=== PATIENT | female | born 1975 | race African-American/Black ===

== ENCOUNTER 2023-01-06 14:17 | Emergency (ER) | payer OTHER ==
[~2023-01-06] VITALS: Ht 149.9 cm; Wt 123.0 kg
[2023-01-06] MEDS ORDERED: prednisoLONE ACETATE 1% OPTH SUSP 5ML RIGHTEYE ONE (15:00)
[2023-01-06 17:37] LABS: Basophils # (auto) 0 10 ^3/uL (0-0.2); Basophils % (auto) 0.7 % (0.0-2.0); Eosinophils # (auto) 0.1 10 ^3/uL (0-0.8); Hematocrit 38.4 % (36.0-46.0); Hemoglobin 12.7 g/dL (12.2-16.2); Lymphocytes # (auto) 2.6 10 ^3/uL (0.4-5.4); Mean Corpuscular Hemoglobin 29.9 pg (28.0-32.0); Mean Corpuscular Volume 90.7 fL (80.0-100.0); Monocytes # (auto) 0.4 10 ^3/uL (0-1.3); Monocytes % (auto) 6.3 % (0.0-12.0); Neutrophils # (auto) 3.6 10 ^3/uL (1.6-8.6); Nucleated Red Blood Cells % 0.1 %; Red Blood Cells 4.24 10^6/uL (4.0-5.20); White Blood Cell 6.8 10^3/uL (4.4-10.8)
[2023-01-06 19:44] VITALS: BP 140/86
[2023-01-06 20:04] LABS: Albumin 3.3 g/dL (3.4-5.0); Calcium 8.8 mg/dL (8.5-10.1); Potassium 4.3 mmol/L (3.5-5.1)
[2023-01-06 20:07] LABS: BUN/Creatinine Ratio 13.3; Bilirubin, Total 0.2 mg/dL (0.2-1.0); Total Protein 7.5 g/dL (6.4-8.2)
== END 2023-01-06 20:31 | disposition short-term general hospital (02) ==
LOC: ER 14:17
DX: H16.001 Unspecified corneal ulcer, right eye (principal); H53.8 Other visual disturbances; I10 Essential (primary) hypertension; J45.909 Unspecified asthma, uncomplicated
CPT/HCPCS: 36415; 80053; 85025; 85652

== ENCOUNTER 2024-07-14 17:45 | Emergency (ER) | payer OTHER ==
[~2024-07-14] VITALS: Ht 149.9 cm; Wt 110.0 kg
[2024-07-14] MEDS ORDERED: ERY05OO OP (20:45)
[2024-07-14] MEDS: ERYTHROMY OPTH OINT 5mg/gm 1gm or 3.5gm tube OP ONE (21:19)
[2024-07-14] MEDS: TETRACAINE HCL 0.5% OPTH(EYE) SOLN 4ML EACHEYE ONE (21:20)
[2024-07-14] MEDS: FLUORESCEIN SOD OPTH TEST STRIP EACHEYE ONE (21:20)
[2024-07-14 21:26] VITALS: BP 145/91; PULSE 76; RESP 14; TEMP 98.1; O2SAT 93
== END 2024-07-14 21:20 | disposition home or self-care (01) ==
LOC: ER 17:45
DX: S05.02XA Injury of conjunctiva and corneal abrasion without foreign body, left eye, initial encounter (principal); S05.01XA Injury of conjunctiva and corneal abrasion without foreign body, right eye, initial encounter; I10 Essential (primary) hypertension; J45.909 Unspecified asthma, uncomplicated; X58.XXXA Exposure to other specified factors, initial encounter; Y93.89 Activity, other specified; Y92.89 Other specified places as the place of occurrence of the external cause; Y99.8 Other external cause status

== ENCOUNTER 2024-10-10 07:29 | Inpatient (IN) | payer OTHER ==
[~2024-10-10] VITALS: Ht 149.9 cm; Wt 56.4 kg
[~2024-10-10 07:29] MED LIST: ERY05OO OP
[2024-10-10 07:45] VITALS: PULSE 80; RESP 18; O2SAT 98
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
[2024-10-10] MEDS: SODIUM CHLORIDE 0.9% 1,000 ML IV ONE (08:00)
[2024-10-10] MEDS: ONDANSETRON HCL 4 MG/2 ML VIAL IV ONE (08:25)
[2024-10-10] MEDS: PANTOPRAZOLE 40 MG/10 ML VIAL INJ IV ONE (08:25)
[2024-10-10] MEDS: MORPHINE SULFATE 4 MG/ML SYR/VIAL IV ONE (08:26)
[2024-10-10 08:34] LABS: Basophils # (auto) 0 10 ^3/uL (0-0.2); Basophils % (auto) 0.4 % (0.0-2.0); Eosinophils # (auto) 0.2 10 ^3/uL (0-0.8); Eosinophils % (auto) 2.2 % (0.0-7.0); Hematocrit 35.6 % (36.0-46.0); Hemoglobin 11.4 g/dL (12.2-16.2); Lymphocytes % (auto) 26.8 % (10.0-50.0); Mean Corpuscular Hemoglobin 28.5 pg (28.0-32.0); Mean Corpuscular Volume 89.2 fL (80.0-100.0); Monocytes # (auto) 0.4 10 ^3/uL (0-1.3); Monocytes % (auto) 5.8 % (0.0-12.0); Neutrophils # (auto) 4.8 10 ^3/uL (1.6-8.6); Neutrophils % (auto) 64.8 % (37.0-80.0); Nucleated Red Blood Cells % 0.1 %; Platelet Count (auto) 200 10^3/uL (140-450); Red Blood Cells 3.99 10^6/uL (4.0-5.20); Red Cell Distribution Width 15.3 % (11.8-14.3); White Blood Cell 7.4 10^3/uL (4.4-10.8)
[2024-10-10 08:51] LABS: Albumin 3.9 g/dL (3.2-4.8); Alkaline Phosphatase 81 U/L (46-116); Anion Gap 10 (5-15); Aspartate Aminotransferase 34 U/L (13-40); BUN/Creatinine Ratio 9.5 (10.0-20.0); Bilirubin, Total 0.3 mg/dL (0.2-1.0); Calcium 9.5 mg/dL (8.7-10.4); Carbon Dioxide 25 mmol/L (20-31); Chloride 106 mmol/L (98-107); Potassium 3.6 mmol/L (3.5-5.1); Sodium 141 mmol/L (136-145); Total Protein 7.6 g/dL (5.7-8.2)
[2024-10-10 09:04] LABS: Alanine Aminotransferase 75 U/L (7-40); Blood Urea Nitrogen 9 mg/dL (9-23); Glucose 152 mg/dL (74-106)
[2024-10-10 09:15] LABS: Lipase 35 U/L (12-53)
[2024-10-10] MEDS: IOHEXOL 300 MG/ML 100ML BOTTLE IJ ONE (13:04)
--- NOTE | 2024-10-10 14:19 | DVH ---
Exam: CT CT AB PEL WITH IV CON ONLY History: abdominal pain ans nausea Comparison Study: None available at time of dictation. Contrast: Type of contrast: Omnipaque 3 Contrast injected: 100 mL Contrast wasted: 0 TECHNIQUE: A digital manager line image was obtained. During the uneventful, intravenous administration of c ontrast material, multislice data acquisition was obtained through the abdomen and pelvis. The data s et was subsequently reconstructed into axial images. Images were reviewed on a work station using a c ombination of axial and multiplanar using a variety of window levels and settings. Radiation Dose Information: CT Dose: CTDI volume is 25.69 mGy. Dose-length product is 1258.45 mGy*cm FINDINGS: Lung Bases: No acute or significant lung base finding. Normal heart size. No pleural or pericardial effusion. Liver: The liver is normal in size. No focal lesions. Normal hepatic vascular enhancement. Gallbladder and Biliary Tree: Calcified gallstone Spleen: Unremarkable Pancreas: The pancreas is normal in appearance without focal lesions or abnormal enhancement. Adrenal Glands: Unremarkable Kidneys: Kidneys demonstrate normal symmetric enhancement without focal lesions, calculi or hydroneph rosis. Bladder: Unremarkable Bowel: The stomach is grossly normal in appearance. Small bowel and colon are normal in caliber and d istribution. Mucosal thickening of the colon suggesting colitis correlate with clinical thinning The appendix is not visualized; however, no secondary findings of acute appendicitis identified. Ascites: Absent Lymphadenopathy: No mesenteric, retroperitoneal or periportal lymphadenopathy. Abdominal Wall and Mesentery: Unremarkable. Vasculature: The visualized abdominal aorta is normal in size and caliber. Abdominal and pelvic vess els demonstrate normal enhancement. Pelvic Organs: Unremarkable Musculoskeletal: No aggressive focal bony lesions, acute fractures or dislocation. Soft tissues: Unremarkable. IMPRESSION: 1. Calcified gallstone 2. Mucosal thickening throughout the colon suggesting colitis. Correlate with patient's symptomatolog y and clinical setting. 3. All CT scans at this medical facility are performed using dose modulation techniques as appropriate to a performed exam including the following: Automated exposure control was utilized; adjustment of t he MA and/or KV according to patient size; and use of iterative reconstruction technique.
[2024-10-10] MEDS ORDERED: MAALOX PLUS or MAALOX 30 ML PO PRN (14:45)
[2024-10-10] MEDS ORDERED: MORPHINE SULFATE INJ 2 MG/ml SYRG IV PRN (14:45)
[2024-10-10] MEDS ORDERED: DOCUSATE SOD 100 MG CAP PO PRN (14:45)
[2024-10-10] MEDS ORDERED: DEXTROSE (50%) 50ML SYRG IV PRN (14:45)
[2024-10-10] MEDS ORDERED: ONDANSETRON HCL 4 MG/2 ML VIAL IV PRN (14:45)
[2024-10-10] MEDS ORDERED: ACETAMINOPHEN 325 MG TAB PO PRN (14:45)
[2024-10-10] MEDS ORDERED: TEMAZEPAM 15 MG CAP PO PRN (14:45)
[2024-10-10] MEDS ORDERED: LORazepam 0.5 MG TAB PO PRN (14:45)
[2024-10-10] MEDS ORDERED: HYDROcodone-ACET 5/325MG TAB PO PRN (14:45)
--- NOTE | 2024-10-10 14:58 | DVHHP2 ---
History of Present Illness Reason for Visit: abdominal pain n/v History of Present Illness 49-year-old morbidly obese patient with a past medical history of asthma hypertension comes to the ED with complaints of nausea and vomiting patient states that there was severe nausea and vomiting and dizziness to the point where the patient almost passed out patient states no history of being known to be at this point in time was evaluated in the ED and do the intractable nausea and vomiting patient was recommended for ED evaluation and further management Cardiovascular: HTN Review of Systems Constitutional: Yes: Weakness; No: Fever, Chills, Sweats, Malaise, Other Eyes: No: Pain, Vision change, Conjunctivae inflammation, Eyelid inflammation, Other, Redness ENT: No: Ear pain, Ear discharge, Nose pain, Nose discharge, Nose congestion, Mouth pain, Mouth swelling, Throat pain, Throat swelling, Other Respiratory: No: Cough, Dry, Shortness of breath, SOB with excertion, Wheezing, Hemoptysis, Pleuritic Pain, Sputum, Wheezing, Other Cardiovascular: No: Chest Pain, Palpitations, Orthopnea, Paroxysmal Noc. Dyspnea, Edema, Lt Headedness, Other Gastrointestinal: Nausea, Vomiting, Abdominal Pain; No: Diarrhea, Constipation, Melena, Hematochezia, Other Genitourinary: No Dysuria, No Frequency, No Incontinence, No Hematuria, No Retention, No Other Musculoskeletal: No: other, neck pain, shoulder pain, arm pain, back pain, hand pain, leg pain, foot pain Skin: No: Rash, Lesions, Jaundice, Bruising, Other Neurological: No: Weakness, Numbness, Incoordination, Change in speech, Confusion, Seizures, Other Allergies: Coded Allergies: NO KNOWN ALLERGIES (Unverified , 01/06/23) Exam Vital Signs Vital Signs Date Time Temp Pulse Resp B/P (MAP) Pulse Ox O2 Delivery O2 Flow Rate FiO2 10/10/24 14:00 86 16 132/66 (88) 94 10/10/24 07:45 Room Air* 0 21 10/10/24 07:45 98.2 98.2 General Appearance: Alert, Oriented X3 HEENT: Atraumatic, PERRLA Respiratory: Clear to auscultation, Normal air movement Cardiovascular: Regular rate, Normal S1, Normal S2 Abdominal: Normal bowel sounds Extremities: No clubbing, No cyanosis Skin: No rashes, No breakdown Neuro: Normal gait, Normal speech Psych/Mental Status: Mood NL Labs/Xrays Labs Test 10/10/24 08:01 Range/Units White Blood Count 7.4 4.4-10.8 10^3/uL Red Blood Count 3.99 L 4.0-5.20 10^6/uL Hemoglobin 11.4 L 12.2-16.2 g/dL Hematocrit 35.6 L 36.0-46.0 % Mean Corpuscular Volume 89.2 80.0-100.0 fL Mean Corpuscular Hemoglobin 28.5 28.0-32.0 pg Mean Corpuscular Hemoglobin Concent 32.0 32.0-36.0 g/dL Red Cell Distribution Width 15.3 H 11.8-14.3 % Platelet Count 200 140-450 10^3/uL Mean Platelet Volume 9.3 6.9-10.8 fL Neutrophils (%) (Auto) 64.8 37.0-80.0 % Lymphocytes (%) (Auto) 26.8 10.0-50.0 % Monocytes (%) (Auto) 5.8 0.0-12.0 % Eosinophils (%) (Auto) 2.2 0.0-7.0 % Basophils (%) (Auto) 0.4 0.0-2.0 % Neutrophils # (Auto) 4.8 1.6-8.6 10 ^3/uL Lymphocytes # (Auto) 2.0 0.4-5.4 10 ^3/uL Monocytes # (Auto) 0.4 0-1.3 10 ^3/uL Eosinophils # (Auto) 0.2 0-0.8 10 ^3/uL Basophils # (Auto) 0 0-0.2 10 ^3/uL Nucleated Red Blood Cells 0.1 % Sodium Level 141 136-145 mmol/L Potassium Level 3.6 3.5-5.1 mmol/L Chloride Level 106 98-107 mmol/L Carbon Dioxide Level 25 20-31 mmol/L Anion Gap 10 5-15 Blood Urea Nitrogen 9 9-23 mg/dL Creatinine 0.95 0.550-1.02 mg/dL Glomerular Filtration Rate Calc 74 >90 mL/min BUN/Creatinine Ratio 9.5 L 10.0-20.0 Serum Glucose 152 H 74-106 mg/dL Calcium Level 9.5 8.7-10.4 mg/dL Total Bilirubin 0.3 0.2-1.0 mg/dL Aspartate Amino Transferase (AST) 34 13-40 U/L Alanine Aminotransferase (ALT) 75 H 7-40 U/L Alkaline Phosphatase 81 46-116 U/L Total Protein 7.6 5.7-8.2 g/dL Albumin 3.9 3.2-4.8 g/dL Lipase 35 12-53 U/L Assessment/Plan Assessment/Plan Admit to [facility] Abdominal pain with intractable nausea vomiting suspected colitis Patient was found to have right upper quadrant calcified gallstone in the gallbladder Patient was also shown to have signs of colitis IV hydration IV antibiotics Possible need for surgical evaluation Chronic history of hypertension history of asthma P.r.n. medications for management of blood pressures P.r.n. medications for the management of asthma Patient morbidly obese BMI greater than 66 Plan discussed with: Patient My Orders Orders - FRANCISCO J ESPINOZA MD Procedure Category Date Status Time Metronidazole Ivpb PHA 10/10/24 Transmitted Flagyl 14:45 Pantoprazole PHA 10/11/24 Transmitted (Protonix) 10:00 Glucose Blood [facility] 10/10/24 Transmitted (Accu-Chek Comfort 16:00 Moderate Insulin Ss PHA 10/10/24 Transmitted 16:00 Dextrose 50% Syringe [facility] 10/10/24 Transmitted 14:45 Admit ADMIT 10/10/24 Transmitted 14:40 Code Status CODE 10/10/24 Transmitted 14:40 Vital Signs [facility] 10/10/24 Transmitted 14:40 Review Orders With [facility] 10/10/24 Transmitted Adm. 14:40 Consistent DIET 10/10/24 Transmitted Carb(Ccho)Diabetes Dinner Sodium Chloride 0.9% PHA 10/10/24 Transmitted 14:45 Lorazepam Tablet [facility] 10/10/24 Transmitted (Ativan Tablet) 14:45 Alum & Mag PHA 10/10/24 Transmitted Hydrox-Simethicone 14:45 Docusate Sodium PHA 10/10/24 Transmitted Capsule (Colace 14:45 Acetaminophen Tablet PHA 10/10/24 Transmitted (Tylenol Tablet) 14:45 Temazepam (Restoril) PHA 10/10/24 Transmitted 14:45 Notify Of Changes [facility] 10/10/24 Transmitted From Base 14:40 Advance Directive [facility] 10/10/24 Transmitted 14:40 Basic Metabolic Panel LAB 10/11/24 Verified 04:00 Complete Blood Count LAB 10/11/24 Verified 04:00 Patient Condition ORDERS 10/10/24 Transmitted 14:40 Allergies XOCHITL 10/10/24 Transmitted 14:40 Hydrocodone-Acet PHA 10/10/24 Transmitted 5/325mg Tab ([place] 14:45 Ondansetron Hcl PHA 10/10/24 Transmitted (Zofran) 14:45 Morphine 2mg Iv Q4hprn PHA 10/10/24 Transmitted 14:45 Notify Md Of Changes XOCHITL 10/10/24 Transmitted From Base 14:40 Oxygen By Nasal RT 10/10/24 Transmitted Cannula 14:40 Problem List: (1) Morbid obesity with BMI of 60.0-69.9, adult (2) Colitis (3) Biliary colic (4) Intractable nausea and vomiting Date of Service: Oct 10, 2024 Billing Provider: FRANCISCO J ESPINOZA MD Common Visit Codes: 63163-[id number] INP/OBS CARE (HIGH) FRANCISCO J ESPINOZA MD Oct 10, 2024 14:58
[2024-10-10] MEDS: SODIUM CHLORIDE 0.9% 1,000 ML IV SCH (15:07)
[2024-10-10] MEDS: ACCU-CHEK COMFORT CURVE STRIP VI SCH (15:23)
[2024-10-10] MEDS: metroNIDAZOLE 500MG/100ML 100 ML IV SCH (15:26)
[2024-10-10] MEDS: InsuLIN REG 1unit/0.01ml Soln (100units/ml) SC SCH (15:37)
[2024-10-10 20:00] VITALS: PULSE 98; RESP 17; O2SAT 99
[2024-10-11 00:26] LABS: Urine Bacteria None Seen /hpf (None Seen)
[2024-10-11 00:41] LABS: Urine Blood Negative /uL (Negative); Urine Clarity Clear (Clear); Urine Color Light-Yellow (Yellow); Urine Protein, UAD Negative (Negative); Urine Specific Gravity 1.042 (1.001-1.035); Urine Urobilinogen Normal (Negative); Urine WBC 2 /hpf (0 - 5); Urine pH 6.5 (5.0-9.0)
[2024-10-11 06:41] LABS: Basophils # (auto) 0 10 ^3/uL (0-0.2); Basophils % (auto) 0.4 % (0.0-2.0); Eosinophils # (auto) 0.1 10 ^3/uL (0-0.8); Hematocrit 33.3 % (36.0-46.0); Hemoglobin 10.8 g/dL (12.2-16.2); Lymphocytes # (auto) 2.4 10 ^3/uL (0.4-5.4); Lymphocytes % (auto) 51.9 % (10.0-50.0); Mean Corpuscular Hemoglobin 28.5 pg (28.0-32.0); Mean Corpuscular Hgb Conc. 32.3 g/dL (32.0-36.0); Mean Corpuscular Volume 88.2 fL (80.0-100.0); Monocytes # (auto) 0.3 10 ^3/uL (0-1.3); Monocytes % (auto) 6.6 % (0.0-12.0); Neutrophils # (auto) 1.8 10 ^3/uL (1.6-8.6); Neutrophils % (auto) 38.1 % (37.0-80.0); Nucleated Red Blood Cells % 0.2 %; Platelet Count (auto) 174 10^3/uL (140-450); Red Blood Cells 3.78 10^6/uL (4.0-5.20); Red Cell Distribution Width 15.5 % (11.8-14.3); White Blood Cell 4.7 10^3/uL (4.4-10.8)
[2024-10-11 06:48] LABS: Sodium 141 mmol/L (136-145)
[2024-10-11 06:49] LABS: Anion Gap 8 (5-15); Carbon Dioxide 25 mmol/L (20-31)
[2024-10-11 06:50] LABS: Calcium 9.1 mg/dL (8.7-10.4)
[2024-10-11 06:55] LABS: BUN/Creatinine Ratio 11.6 (10.0-20.0); Blood Urea Nitrogen 10 mg/dL (9-23); Chloride 108 mmol/L (98-107); Glucose 119 mg/dL (74-106); Potassium 3.5 mmol/L (3.5-5.1)
[2024-10-11 07:32] VITALS: PULSE 87; RESP 17; O2SAT 97
[2024-10-11] MEDS: PANTOPRAZOLE 40 MG/10 ML VIAL INJ IV SCH (10:12)
--- NOTE | 2024-10-11 13:22 | DVHPN2 ---
Reviewed: Care Plan, H&P, Labs, Medications, Previous Orders, Radiology Changes from previous H/P or p: No Changes Eyes: No Pain, No Vision change, No Conjunctivae inflammation, No Eyelid inflammation, No Other, No Redness ENT: No Ear pain, No Ear discharge, No Nose pain, No Nose discharge, No Nose congestion, No Mouth pain, No Mouth swelling, No Throat pain, No Throat swelling, No Other Cardiovascular: No Chest Pain, No Palpitations, No Orthopnea, No Paroxysmal Noc. Dyspnea, No Edema, No Lt Headedness, No Other Respiratory: No Cough, No Dry, No Shortness of breath, No SOB with excertion, No Wheezing, No Hemoptysis, No Pleuritic Pain, No Sputum, No Other Gastrointestinal: Nausea, Vomiting, Abdominal Pain; No Diarrhea, No Constipation, No Melena, No Hematochezia, No Other Genitourinary: No Dysuria, No Frequency, No Incontinence, No Hematuria, No Retention, No Other Musculoskeletal: No other, No neck pain, No shoulder pain, No arm pain, No back pain, No hand pain, No leg pain, No foot pain Skin: No Rash, No Lesions, No Jaundice, No Bruising, No Other Objective Vitals Vital Signs Date Time Temp Pulse Resp B/P (MAP) Pulse Ox O2 Delivery O2 Flow Rate FiO2 10/11/24 11:30 86 10/11/24 11:00 22 148/80 (102) 97 10/11/24 07:32 98.6 98.6 10/11/24 07:32 Room Air* 0 21 Medications Current Medications Medications Dose Ordered Sig/Bob Route Start Time Stop Time Status Last Admin Dose Admin Metronidazole 100 ml @ 100 mls/hr Q6HR IV 10/10/24 14:45 10/11/24 12:30 100 MLS/HR Pantoprazole Sodium 40 mg DAILY IV 10/11/24 10:00 10/11/24 10:12 40 MG Diagnostic Test (Pha) 1 strip IQ4HR 10/10/24 16:00 10/11/24 12:27 1 STRIP Insulin Human Regular IQ4HR SC 10/10/24 16:00 Dextrose 50 ml UD PRN IV 10/10/24 14:45 Sodium Chloride 1,000 ml @ 60 mls/hr [id number] IV 10/10/24 14:45 10/11/24 05:52 60 MLS/HR Lorazepam 0.5 mg Q6HP PRN PO 10/10/24 14:45 Al Hydrox/Mg Hydrox/Simethicone 30 ml Q6HP PRN PO 10/10/24 14:45 Docusate Sodium 100 mg BIDPRN PRN PO 10/10/24 14:45 Acetaminophen 650 mg Q6HP PRN PO 10/10/24 14:45 Temazepam 15 mg QHSP PRN PO 10/10/24 14:45 Acetaminophen/ Hydrocodone Bitart 1 tab Q4HP PRN PO 10/10/24 14:45 Ondansetron HCl 4 mg Q4HP PRN IV 10/10/24 14:45 Morphine Sulfate 2 mg Q4HPRN PRN IV 10/10/24 14:45 Laboratory Results Laboratory Tests 10/11/24 06:15 Chemistry Test 10/11/24 06:15 Calcium Level 9.1 mg/dL (8.7-10.4) Urinalysis Test 10/11/24 00:12 Urine Color Light-yellow (Yellow) Urine Clarity Clear (Clear) Urine pH 6.5 (5.0-9.0) Urine Specific [place] 1.042 (1.001-1.035) Urine Protein Negative (Negative) Urine Ketones Negative (Negative) Urine Blood Negative /uL (Negative) Urine Nitrite Negative (Negative) Urine Bilirubin Negative (Negative) Urine Urobilinogen Normal mg/dL (Negative) Urine Leukocyte Esterase Negative /uL (Negative) Urine RBC None seen /hpf (0 - 4) Urine WBC 2 /hpf (0 - 5) Urine Squamous Epithelial Cells Few /hpf (<5) Urine Bacteria None seen /hpf (None Seen) Urine Glucose Normal mg/dL (Normal) Labs and/or images reviewed: Labs reviewed by me, Image(s) reviewed by me Assessment/Plan Assessment/Plan Abdominal pain nausea and vomiting Acute colitis: Rocephin and Flagyl pantoprazole: 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
[2024-10-11] MEDS: cefTRIAXone 1GM/50ML D5W 50 ML IV ONE (13:53)
[2024-10-11 14:45] VITALS: BP 116/63; PULSE 83; RESP 18; RESP 20; TEMP 98.6; O2SAT 98
[2024-10-11 17:00] VITALS: BP 129/90; PULSE 99; RESP 20; TEMP 98.1; O2SAT 100
[2024-10-11 20:00] VITALS: PULSE 72; RESP 20; O2SAT 96
[2024-10-11 21:00] VITALS: BP_SYST 133; BP_SYST 165; BP_DIAS 58; BP_DIAS 80; PULSE 78; PULSE 90; RESP 20; RESP 22; TEMP 98; TEMP 98.2; O2SAT 96; O2SAT 99
--- NOTE | 2024-10-11 22:57 | DVHINCON2 ---
Date of service: Oct 11, 2024 Reason for Consultation N/V History of Present Illness 49 y/o F pt admitted with nausea and emesis. She reports having N/V since yesterday, improved. Tolerating diet well. Denies diarrhea/GIB/abd pain. Imaging noted to have cholelithiasis and colitis. Never had EGD/colonoscopy. No fhx of GI malignancy Past Medical History Reviewed Past Surgical History Reviewed Family History: Cervical cancer G8 MOTHER, Onset:40's - 50 Chronic kidney disease G8 FATHER, Onset:40's - 50 Allergies: Coded Allergies: NO KNOWN ALLERGIES (Unverified , 01/06/23) Home Meds Active Scripts Erythromycin (Erythromycin) 5 Mg/Gm Oin, 1 MG OP QID for 7 Days, #30 OIN Prov:GAGE ANG MD 07/14/24 Current Medications Current Medications Medications (Trade) Dose Ordered Sig/Bob Route PRN Reason Start Time Stop Time Status Last Admin Pantoprazole Sodium (Protonix) 40 mg DAILY IV 10/11/24 10:00 10/11/24 10:12 Ceftriaxone Sodium 50 ml @ 100 mls/hr DAILY@09 IV 10/12/24 09:00 Review of Systems 14 point ROS neg except mentioned above Vital Signs Vital Signs Date Time Temp Pulse Resp B/P (MAP) Pulse Ox O2 Delivery O2 Flow Rate FiO2 10/11/24 21:00 98.2 78 20 133/58 (83) 96 98.2 10/11/24 14:45 Room Air* 0 21 Physical Exam GE: in no distress CVS: S1S2+ Lungs: clear Abdomen: soft, non-distended, non-tender, BS+ Labs/Diagnostic Data Labs Test 10/11/24 19:41 10/11/24 06:15 10/11/24 00:12 10/10/24 08:01 Range/Units POC Glucose 95 70-106 mg/dl White Blood Count 4.7 # 4.4-10.8 10^3/uL Red Blood Count 3.78 L 4.0-5.20 10^6/uL Hemoglobin 10.8 L 12.2-16.2 g/dL Hematocrit 33.3 L 36.0-46.0 % Mean Corpuscular Volume 88.2 80.0-100.0 fL Mean Corpuscular Hemoglobin 28.5 28.0-32.0 pg Mean Corpuscular Hemoglobin Concent 32.3 32.0-36.0 g/dL Red Cell Distribution Width 15.5 H 11.8-14.3 % Platelet Count 174 140-450 10^3/uL Mean Platelet Volume 8.9 6.9-10.8 fL Neutrophils (%) (Auto) 38.1 37.0-80.0 % Lymphocytes (%) (Auto) 51.9 H 10.0-50.0 % Monocytes (%) (Auto) 6.6 0.0-12.0 % Eosinophils (%) (Auto) 3.0 0.0-7.0 % Basophils (%) (Auto) 0.4 0.0-2.0 % Neutrophils # (Auto) 1.8 1.6-8.6 10 ^3/uL Lymphocytes # (Auto) 2.4 0.4-5.4 10 ^3/uL Monocytes # (Auto) 0.3 0-1.3 10 ^3/uL Eosinophils # (Auto) 0.1 0-0.8 10 ^3/uL Basophils # (Auto) 0 0-0.2 10 ^3/uL Nucleated Red Blood Cells 0.2 % Sodium Level 141 136-145 mmol/L Potassium Level 3.5 3.5-5.1 mmol/L Chloride Level 108 H 98-107 mmol/L Carbon Dioxide Level 25 20-31 mmol/L Anion Gap 8 5-15 Blood Urea Nitrogen 10 9-23 mg/dL Creatinine 0.86 0.550-1.02 mg/dL Glomerular Filtration Rate Calc 84 >90 mL/min BUN/Creatinine Ratio 11.6 10.0-20.0 Serum Glucose 119 H 74-106 mg/dL Calcium Level 9.1 8.7-10.4 mg/dL Beta HCG, Quantitative < 1.5 L 1.5-4.2 mIU/mL Urine Color Light-yellow Yellow Urine Clarity Clear Clear Urine pH 6.5 5.0-9.0 Urine Specific [place] 1.042 H 1.001-1.035 Urine Protein Negative Negative Urine Ketones Negative Negative Urine Blood Negative Negative /uL Urine Nitrite Negative Negative Urine Bilirubin Negative Negative Urine Urobilinogen Normal Negative mg/dL Urine Leukocyte Esterase Negative Negative /uL Urine RBC None seen 0 - 4 /hpf Urine WBC 2 0 - 5 /hpf Urine Squamous Epithelial Cells Few <5 /hpf Urine Bacteria None seen None Seen /hpf Urine Glucose Normal Normal mg/dL Total Bilirubin 0.3 0.2-1.0 mg/dL Aspartate Amino Transferase (AST) 34 13-40 U/L Alanine Aminotransferase (ALT) 75 H 7-40 U/L Alkaline Phosphatase 81 46-116 U/L Total Protein 7.6 5.7-8.2 g/dL Albumin 3.9 3.2-4.8 g/dL Lipase 35 12-53 U/L Assessment #N/V, resolved #Colitis on CTAP #Cholelithiasis Plan/Recommendation -N/V resolved. Tolerating diet well. No abd pain -Recommend colonoscopy as out pt for CRC screening and to eval CTAP findings. Pt has no diarrhea/abd pain/GIB -Pt demands to GB surgery, informed done if biliary colic or any acute cholecystitis. Will defer to medicine team. -GI clinic f/u with Dr Barksdale or myself after dc Thank you for the consult. Plan discussed with: Patient HORTENCIA LOPEZ MD Oct 11, 2024 22:57
[2024-10-12] VITALS (8 sets, daily range): BP systolic 115–150; BP diastolic 44–85; PULSE 76–93; RESP 18–22; TEMP 97.9–98.1; O2SAT 96–100
[2024-10-12] MEDS: cefTRIAXone 1GM/50ML D5W 50 ML IV SCH (09:14)
--- NOTE | 2024-10-12 14:55 | DVHPN2 ---
Assessment/Plan Assessment/Plan Progress note Subjective 49-year-old female admitted for abdominal pain, likely due to colitis Patient is seen today during rounds Able to relate oral diet, complained of constipation Objective Physical exam Alert, oriented x3 PERRLA No JVD Clear breath sounds bilaterally S1-S2 regular rate and rhythm no murmur Abdomen soft nontender, no organomegaly Moving all four extremities No lower extremity edema Imaging CT AP showed colitis Assessment and plan Abdominal pain and nausea likely secondary to enterocolitis Possibly viral versus noninfectious Constipation Normocytic anemia GI consult appreciated patient able to tolerate oral feeding Bowel regimen with MiraLax and senna Empiric coverage with ceftriaxone and Flagyl Pain management Replete electrolytes Diet advanced as tolerated DVT prophylaxis ambulatory Plan discussed with: Patient My Orders Orders - GRIS BURLESON MD Procedure Category Date Status Time Polyethylene Glycol PHA 10/12/24 In Process 17g Powder (Miralax 13:30 Date of Service: Oct 12, 2024 Billing Provider: GRIS BURLESON MD Common Visit Codes: [id number] INP/OBS CARE(HIGH) GRIS BURLESON MD Oct 12, 2024 14:55
[2024-10-12] MEDS: POLYETHYLENE GLYCOL 17 GM PWDR PO PRN (16:37)
[2024-10-13 05:16] VITALS: BP 135/53; PULSE 81; RESP 18; TEMP 98.1; O2SAT 97
[2024-10-13 08:50] VITALS: BP 153/86; PULSE 93; RESP 16; TEMP 97.6; O2SAT 95
--- NOTE | 2024-10-13 11:40 | DVHPN2 ---
Assessment/Plan Assessment/Plan Progress note Subjective 49-year-old female admitted for abdominal pain, likely due to colitis Patient is seen today during rounds Had bowel movement, still nauseous, will escalate diet Objective Physical exam Alert, oriented x3 PERRLA No JVD Clear breath sounds bilaterally S1-S2 regular rate and rhythm no murmur Abdomen soft nontender, no organomegaly Moving all four extremities No lower extremity edema Imaging CT AP showed colitis Assessment and plan Abdominal pain and nausea likely secondary to enterocolitis Possibly viral versus noninfectious Constipation Normocytic anemia GI consult pending patient able to tolerate oral feeding Bowel regimen with MiraLax and senna Empiric coverage with ceftriaxone and Flagyl Hladol PRN nausea Replete electrolytes Diet advanced as tolerated DVT prophylaxis ambulatory Plan discussed with: Patient My Orders Orders - GRIS BURLESON MD Procedure Category Date Status Time Polyethylene Glycol PHA 10/12/24 In Process 17g Powder (Miralax 13:30 Date of Service: Oct 13, 2024 Billing Provider: GRIS BURLESON MD Common Visit Codes: [id number] INP/OBS CARE(HIGH) GRIS BURLESON MD Oct 13, 2024 11:40
[2024-10-13] MEDS ORDERED: HALOPERIDOL LACTATE 5 MG/ML INJ VIAL IM PRN (11:45)
[2024-10-13 13:22] VITALS: BP 150/88; PULSE 90; RESP 19; TEMP 98.2; O2SAT 100
--- NOTE | 2024-10-13 15:30 | DVHPN2 ---
Progress Note - Dictate Date Seen: Oct 13, 2024 Medical Necessity Reason Pt with a Central, PICC or Fol: No Subjective Denies abd pain/N/V. Tolerating diet well vital signs Vital Sign Date Time Temp Pulse Resp B/P (MAP) Pulse Ox O2 Delivery O2 Flow Rate FiO2 10/13/24 13:22 98.2 90 19 150/88 (108) 100 98.2 10/13/24 08:00 Room Air* 0 21 Total Intake and Output 10/12/24 10/12/24 10/13/24 15:00 23:00 07:00 Intake Total 696 ml 350 ml 970 ml Balance 696 ml 350 ml 970 ml medications Current Medications Medications Dose Ordered Sig/Bob Route Start Time Stop Time Status Last Admin Dose Admin Metronidazole 100 ml @ 100 mls/hr Q6HR IV 10/10/24 14:45 10/13/24 12:12 100 MLS/HR Pantoprazole Sodium 40 mg DAILY IV 10/11/24 10:00 10/13/24 08:12 40 MG Diagnostic Test (Pha) 1 strip IQ4HR 10/10/24 16:00 10/13/24 12:13 1 STRIP Insulin Human Regular IQ4HR SC 10/10/24 16:00 10/12/24 20:17 2 UNITS Dextrose 50 ml UD PRN IV 10/10/24 14:45 Sodium Chloride 1,000 ml @ 60 mls/hr [id number] IV 10/10/24 14:45 10/13/24 12:13 60 MLS/HR Al Hydrox/Mg Hydrox/Simethicone 30 ml Q6HP PRN PO 10/10/24 14:45 Acetaminophen 650 mg Q6HP PRN PO 10/10/24 14:45 Morphine Sulfate 2 mg Q4HPRN PRN IV 10/10/24 14:45 Ceftriaxone Sodium 50 ml @ 100 mls/hr DAILY@09 IV 10/12/24 09:00 10/13/24 08:12 100 MLS/HR Polyethylene Glycol 17 gm DAILYPRN PRN PO 10/12/24 13:30 10/12/24 16:37 17 GM Haloperidol Lactate 2.5 mg Q8HP PRN IM 10/13/24 11:45 objective GE: in no distress CVS: S1S2+ Lungs : clear Abdomen; soft, nontender, nondistended, BS+ laboratory and microbiology Laboratory Tests 10/11/24 06:15 Test 10/11/24 06:15 Range/Units Serum Glucose 119 H 74-106 mg/dL Assessment/Plan #N/V, resolved #Colitis on CTAP #Cholelithiasis -N/V resolved. Tolerating diet well. No abd pain -Recommend colonoscopy as out pt for CRC screening and to eval CTAP findings. Pt has no diarrhea/abd pain/GIB -Pt demands to GB surgery, informed done if biliary colic or any acute cholecystitis. Will defer to medicine team. -GI clinic f/u with Dr Barksdale or myself after dc Thank you for allowing to participate in the care of this pt. Plan discussed with: Patient, Other HORTENCIA LOPEZ MD Oct 13, 2024 15:30
[2024-10-13 16:51] VITALS: BP 133/69; PULSE 85; RESP 18; TEMP 98.6; O2SAT 98
[2024-10-13 20:00] VITALS: PULSE 84; RESP 20; O2SAT 95
[2024-10-13 21:00] VITALS: BP 134/88; PULSE 84; RESP 20; TEMP 98.2; O2SAT 95
[2024-10-14 05:00] VITALS: BP 139/89; PULSE 88; RESP 20; TEMP 98; O2SAT 97
[2024-10-14 08:00] VITALS: PULSE 87; RESP 16; O2SAT 95
[2024-10-14] MEDS ORDERED: ALUMSUS16 PO (08:30)
[2024-10-14] MEDS ORDERED: METR-344 PO (08:30)
[2024-10-14] MEDS ORDERED: POLY335015 PO (08:30)
[2024-10-14] MEDS ORDERED: CEFP200T15 PO (08:30)
[2024-10-14] MEDS ORDERED: FAMO20TA10 PO (08:30)
[2024-10-14 09:00] VITALS: BP 132/79; PULSE 87; RESP 16; TEMP 98.2; O2SAT 90
--- NOTE | 2024-10-14 12:36 | DVHDS2 ---
Discharge Summary Date of Admission Oct 10, 2024 at 14:40 Date of Discharge: Oct 14, 2024 Labs/Diagnostic Data: Laboratory Results Test 10/13/24 16:38 10/11/24 06:15 10/11/24 00:12 10/10/24 08:01 POC Glucose 96 mg/dl (70-106) White Blood Count 4.7 10^3/uL (4.4-10.8) Red Blood Count 3.78 10^6/uL (4.0-5.20) Hemoglobin 10.8 g/dL (12.2-16.2) Hematocrit 33.3 % (36.0-46.0) Mean Corpuscular Volume 88.2 fL (80.0-100.0) Mean Corpuscular Hemoglobin 28.5 pg (28.0-32.0) Mean Corpuscular Hemoglobin Concent 32.3 g/dL (32.0-36.0) Red Cell Distribution Width 15.5 % (11.8-14.3) Platelet Count 174 10^3/uL (140-450) Mean Platelet Volume 8.9 fL (6.9-10.8) Neutrophils (%) (Auto) 38.1 % (37.0-80.0) Lymphocytes (%) (Auto) 51.9 % (10.0-50.0) Monocytes (%) (Auto) 6.6 % (0.0-12.0) Eosinophils (%) (Auto) 3.0 % (0.0-7.0) Basophils (%) (Auto) 0.4 % (0.0-2.0) Neutrophils # (Auto) 1.8 10 ^3/uL (1.6-8.6) Lymphocytes # (Auto) 2.4 10 ^3/uL (0.4-5.4) Monocytes # (Auto) 0.3 10 ^3/uL (0-1.3) Eosinophils # (Auto) 0.1 10 ^3/uL (0-0.8) Basophils # (Auto) 0 10 ^3/uL (0-0.2) Nucleated Red Blood Cells 0.2 % Sodium Level 141 mmol/L (136-145) Potassium Level 3.5 mmol/L (3.5-5.1) Chloride Level 108 mmol/L (98-107) Carbon Dioxide Level 25 mmol/L (20-31) Anion Gap 8 (5-15) Blood Urea Nitrogen 10 mg/dL (9-23) Creatinine 0.86 mg/dL (0.550-1.02) Glomerular Filtration Rate Calc 84 mL/min (>90) BUN/Creatinine Ratio 11.6 (10.0-20.0) Serum Glucose 119 mg/dL (74-106) Calcium Level 9.1 mg/dL (8.7-10.4) Beta HCG, Quantitative < 1.5 mIU/mL (1.5-4.2) Urine Color Light-yellow (Yellow) Urine Clarity Clear (Clear) Urine pH 6.5 (5.0-9.0) Urine Specific [place] 1.042 (1.001-1.035) Urine Protein Negative (Negative) Urine Ketones Negative (Negative) Urine Blood Negative /uL (Negative) Urine Nitrite Negative (Negative) Urine Bilirubin Negative (Negative) Urine Urobilinogen Normal mg/dL (Negative) Urine Leukocyte Esterase Negative /uL (Negative) Urine RBC None seen /hpf (0 - 4) Urine WBC 2 /hpf (0 - 5) Urine Squamous Epithelial Cells Few /hpf (<5) Urine Bacteria None seen /hpf (None Seen) Urine Glucose Normal mg/dL (Normal) Total Bilirubin 0.3 mg/dL (0.2-1.0) Aspartate Amino Transferase (AST) 34 U/L (13-40) Alanine Aminotransferase (ALT) 75 U/L (7-40) Alkaline Phosphatase 81 U/L (46-116) Total Protein 7.6 g/dL (5.7-8.2) Albumin 3.9 g/dL (3.2-4.8) Lipase 35 U/L (12-53) Other Laboratory Tests 10/11/24 06:15 Final Diagnosis/Problems List acute viral gastroenteritis cholelithiasis without cholecystitis Discharge Disposition: Home Discharge Instruct/Medications Diet: Consistent carbohydrate, Cardiac 2g Na,low cholest Activity: No Restrictions, As Tolerated Follow Up/Referral: follow up with GI and surgery as outpatient Medications: cefpodoxime and flagyl Discharge Statement: "Patient was advised to return to the ER or call 911 if any headaches, dizziness, shortness of breath, chest pain, abdominal pain, bleeding, fevers, or worsening of medical condition. Patient was counseled about treatment plan, medications, possible side effects, patientverbalized understanding. All questions were answered to the best of my ability. This discharge took greater then 30 minutes in planning, reviewing documentation, counseling the patient, and discussing with other team members." ASSESSMENT ASSESSMENT Assessment acute viral gastroenteritis cholelithiasis without cholecystitis GRIS BURLESON MD Oct 14, 2024 12:36
[2024-10-14] MEDS: InsuLIN REG 1unit/0.01ml Soln (100units/ml) SC SCH (12:40)
[2024-10-14 13:00] VITALS: BP 135/71; PULSE 88; RESP 18; TEMP 98.1; O2SAT 100
--- NOTE | 2024-10-14 15:59 | DVHDS2 ---
Discharge Summary Date of Admission Oct 10, 2024 at 14:40 Date of Discharge: Oct 14, 2024 Labs/Diagnostic Data: Laboratory Results Test 10/13/24 16:38 10/11/24 06:15 10/11/24 00:12 10/10/24 08:01 POC Glucose 96 mg/dl (70-106) White Blood Count 4.7 10^3/uL (4.4-10.8) Red Blood Count 3.78 10^6/uL (4.0-5.20) Hemoglobin 10.8 g/dL (12.2-16.2) Hematocrit 33.3 % (36.0-46.0) Mean Corpuscular Volume 88.2 fL (80.0-100.0) Mean Corpuscular Hemoglobin 28.5 pg (28.0-32.0) Mean Corpuscular Hemoglobin Concent 32.3 g/dL (32.0-36.0) Red Cell Distribution Width 15.5 % (11.8-14.3) Platelet Count 174 10^3/uL (140-450) Mean Platelet Volume 8.9 fL (6.9-10.8) Neutrophils (%) (Auto) 38.1 % (37.0-80.0) Lymphocytes (%) (Auto) 51.9 % (10.0-50.0) Monocytes (%) (Auto) 6.6 % (0.0-12.0) Eosinophils (%) (Auto) 3.0 % (0.0-7.0) Basophils (%) (Auto) 0.4 % (0.0-2.0) Neutrophils # (Auto) 1.8 10 ^3/uL (1.6-8.6) Lymphocytes # (Auto) 2.4 10 ^3/uL (0.4-5.4) Monocytes # (Auto) 0.3 10 ^3/uL (0-1.3) Eosinophils # (Auto) 0.1 10 ^3/uL (0-0.8) Basophils # (Auto) 0 10 ^3/uL (0-0.2) Nucleated Red Blood Cells 0.2 % Sodium Level 141 mmol/L (136-145) Potassium Level 3.5 mmol/L (3.5-5.1) Chloride Level 108 mmol/L (98-107) Carbon Dioxide Level 25 mmol/L (20-31) Anion Gap 8 (5-15) Blood Urea Nitrogen 10 mg/dL (9-23) Creatinine 0.86 mg/dL (0.550-1.02) Glomerular Filtration Rate Calc 84 mL/min (>90) BUN/Creatinine Ratio 11.6 (10.0-20.0) Serum Glucose 119 mg/dL (74-106) Calcium Level 9.1 mg/dL (8.7-10.4) Beta HCG, Quantitative < 1.5 mIU/mL (1.5-4.2) Urine Color Light-yellow (Yellow) Urine Clarity Clear (Clear) Urine pH 6.5 (5.0-9.0) Urine Specific [place] 1.042 (1.001-1.035) Urine Protein Negative (Negative) Urine Ketones Negative (Negative) Urine Blood Negative /uL (Negative) Urine Nitrite Negative (Negative) Urine Bilirubin Negative (Negative) Urine Urobilinogen Normal mg/dL (Negative) Urine Leukocyte Esterase Negative /uL (Negative) Urine RBC None seen /hpf (0 - 4) Urine WBC 2 /hpf (0 - 5) Urine Squamous Epithelial Cells Few /hpf (<5) Urine Bacteria None seen /hpf (None Seen) Urine Glucose Normal mg/dL (Normal) Total Bilirubin 0.3 mg/dL (0.2-1.0) Aspartate Amino Transferase (AST) 34 U/L (13-40) Alanine Aminotransferase (ALT) 75 U/L (7-40) Alkaline Phosphatase 81 U/L (46-116) Total Protein 7.6 g/dL (5.7-8.2) Albumin 3.9 g/dL (3.2-4.8) Lipase 35 U/L (12-53) Other Laboratory Tests 10/11/24 06:15 Brief Hx & Hospital Course: 49-year-old female admitted for suspected colitis. Patient able to tolerate diet, status post ceftriaxone and metronidazole. No signs of cholecystitis however choledocholithiasis seen on CT. Seen by GI. Patient is stable to discharge to follow up with GI in surgery for possible elective cholecystectomy if continues to be symptomatic Condition at Discharge: Good Final Diagnosis/Problems List acute viral gastroenteritis cholelithiasis without cholecystitis Discharge Disposition: Home Discharge Instruct/Medications Diet: Consistent carbohydrate, Cardiac 2g Na,low cholest Activity: No Restrictions, As Tolerated Follow Up/Referral: follow up with GI and surgery as outpatient Medications: cefpodoxime and flagyl 45 Discharge Statement: "Patient was advised to return to the ER or call 911 if any headaches, dizziness, shortness of breath, chest pain, abdominal pain, bleeding, fevers, or worsening of medical condition. Patient was counseled about treatment plan, medications, possible side effects, patientverbalized understanding. All questions were answered to the best of my ability. This discharge took greater then 30 minutes in planning, reviewing documentation, counseling the patient, and discussing with other team members." ASSESSMENT ASSESSMENT Assessment acute viral gastroenteritis cholelithiasis without cholecystitis Date of Service: Oct 14, 2024 Billing Provider: GRIS BURLESON MD Common Visit Codes: [id number] DISCH DAY >30min GRIS BURLESON MD Oct 14, 2024 15:59
[2024-10-14 16:35] VITALS: BP 135/76; PULSE 88; RESP 16; TEMP 36.7; O2SAT 95
[2024-10-14 17:00] VITALS: BP 135/79; PULSE 99; RESP 16; TEMP 98.1; O2SAT 93
== END 2024-10-14 18:50 | disposition home or self-care (01) | DRG 249 ==
LOC: EDUNIT# 07:29 → EDBD 07:29 → ER 07:29 → OVERFLOW 14:40 → CENTRAL 10-11 14:42
PROVIDERS: ADMIT Hospitalist; ATTEND Student in an Organized Health Care Education/Training Program
DX: A08.4 Viral intestinal infection, unspecified (principal); K80.70 Calculus of gallbladder and bile duct without cholecystitis without obstruction; Z68.44 Body mass index [BMI] 60.0-69.9, adult; E66.01 Morbid (severe) obesity due to excess calories; D64.9 Anemia, unspecified; I10 Essential (primary) hypertension; J45.909 Unspecified asthma, uncomplicated; K59.00 Constipation, unspecified; Z82.49 Family history of ischemic heart disease and other diseases of the circulatory system; Z80.49 Family history of malignant neoplasm of other genital organs; Z79.899 Other long term (current) drug therapy
CPT/HCPCS: 36415; 74177; 80048; 80053; 81001; 82962; 83690; 84702; 85025; 99291; G0378; J1815; J2405; J2470; J3490

== ENCOUNTER 2024-11-04 11:07 | Inpatient (IN) | payer OTHER ==
[2024-11-04] VITALS (7 sets, daily range): BP systolic 140–164; BP diastolic 72–89; PULSE 76–95; RESP 16–20; TEMP 97.7–98.5; O2SAT 95–98
[~2024-11-04] VITALS: Ht 149.9 cm; Wt 117.0 kg
[~2024-11-04 11:07] MED LIST changes: +ALUMSUS16 PO; +CEFP200T15 PO; -ERY05OO OP; +FAMO20TA10 PO; +METR-344 PO; +POLY335015 PO
--- NOTE | 2024-11-04 11:21 | ED.PDOC ---
GI ASSESSMENT HPI Comments 49Y F with PMHx HTN, HLD, and gallstones presents to ED via EMS for chief complaint nausea/vomiting. Pt states she has had 4-5 emesis episodes today. Additional symptoms include lower back pain, lt hip pain, and dizziness. Current pain level 10/10. Pt denies chest pain and SOB. BS 94 with EMS. Pt was discharged from [facility] on 10/14/2024 for dx suspected colitis. Pt states she has an u/s appt tomorrow. Pt smokes cigarettes and meth. Pt used meth last night. Pt denies alcohol use. Chief Complaint: Nausea/Vomiting Time Seen by MD: 11:08 Primary Care Provider: unknown Reviewed Notes: Medications, Allergies Allergies: Coded Allergies: NO KNOWN ALLERGIES (Unverified , 01/06/23) Home Meds Active Scripts Famotidine (PEPCID TABLET) 20 Mg Tb, 1 TAB PO BID for 30 Days, #60 TAB 0 Refills Prov:GRIS BURLESON MD 10/14/24 Alum & Mag Hydrox-Simethicone (Maalox Multi Symptom Maxi) Symp Max Laurie, 1 MAX PO TIDPRN PRN for 30 Days, #90 ML Prov:GRIS BURLESON MD 10/14/24 Metronidazole (Flagyl) 500 Mg Tab, 1 TAB PO BID for 7 Days, #14 TAB Prov:GRIS BURLESON MD 10/14/24 Polyethylene Glycol 3350 (Miralax) 17 Gm Pow, 17 GM PO DAILYPRN PRN for 30 Days, #30 POW Prov:GRIS BURLESON MD 10/14/24 Cefpodoxime Proxetil (Cefpodoxime Proxetil) 200 Mg Tab, 1 TAB PO BID for 7 Days, #14 TAB Prov:GRIS BURLESON MD 10/14/24 Information Source: Patient, Emergency Med Personnel Mode of Arrival: EMS Brought in by: EMS Timing: Hours Duration: Since onset Prehospital treatment: None Quality: Other Vomitus: Watery Stool: Normal Severity: Mild Recent: None Recent Hx of: None Pain Location: Other Modifying Factors: Nothing Associated sign and symptoms: Nausea, Vomiting, Other Past Medical History PAST MEDICAL HISTORY: Asthma, Gallstones, High Lipids, HTN Surgical History: Denies all surgeries TIPPLE BOSS History: Denies all TIPPLE BOSS Hx Family History Family History: Family hx of HTN Social History Smoker: Cigarettes Alcohol: Denies ETOH Use Drugs: Methamphetamine Lives In: Home Constitutional: denies: chills, diaphoresis, fatigue, fever, malaise, sweats, weakness, others EENTM: denies: blurred vision, double vision, ear bleeding, ear discharge, ear drainage, ear pain, ear ringing, eye pain, eye redness, hearing loss, mouth pain, mouth swelling, nasal discharge, nose bleeding, nose congestion, nose pain, photophobia, tearing, throat pain, throat swelling, voice changes, others Respiratory: denies: cough, hemoptysis, orthopnea, SOB at rest, shortness of breath, SOB with excertion, stridor, wheezing, others Cardiovascular: denies: chest pain, dizzy spells, diaphoresis, Dyspnea on exertion, edema, irregular heart beat, left arm pain, lightheadedness, palpitations, PND, syncope, others Gastrointestinal: reports: nausea, vomiting; denies: abdomen distended, abdominal pain, blood streaked bowels, constipated, diarrhea, dysphagia, difficulty swallowing, hematemesis, melena, poor appetite, poor fluid intake, rectal bleeding, rectal pain, others Genitourinary: denies: abnormal vagina bleeding, burning, dyspareunia, dysuria, flank pain, frequency, hematuria, incontinence, pain, , vagina discharge, urgency, others Neurological: reports: dizziness; denies: fainting, headache, left sided numbness, left sided weakness, numbness, paresthesia, pre-existing deficit, right sided numbness, right sided weakness, seizure, speech problems, tingling, tremors, weakness, others Musculoskeletal: reports: back pain, others (lt hip pain); denies: gout, joint pain, joint swelling, muscle pain, muscle stiffness, neck pain Integumetry: denies: bruises, change in color, change in hair/nails, dryness, laceration, lesions, lumps, rash, wounds, others Allergic/Immunocompromised: denies: Difficulty Healing, Frequent Infections, Hives, Itching, others Hematologic/Lymphatic: denies: anemia, blood clots, easy bleeding, easy bruising, swollen glands, others Endocrine: denies: excessive hunger, excessive sweating, excessive thirst, excessive urination, flushing, intolerance to cold, intolerance to heat, unexplained weight gain, unexplained weight loss, others Psychiatric: denies: anxiety, bipolar disorder, depression, hopeless, panic disorder, schizophrenia, sleepless, suicidal, others All Other Systems: Reviewed and Negative Physical Exam General Appearance: Moderate Distress, Normal HEENT: Normal ENT Inspection, Pharynx Normal, TMs Normal Neck: Full Range of Motion, Non-Tender, Normal, Normal Inspection Respiratory: Chest Non-Tender, Lungs Clear, No Accessory Muscle Use, No Respiratory Distress, Normal Breath Sounds Cardiovascular: No Edema, No JVD, No Murmur, No Gallop, Normal Peripheral Pulses, Regular Rate/Rhythm Breast Exam: Deferred Gastrointestinal: No Organomegaly, Non Tender, No Pulsatile Mass, Normal Bowel Sounds, Soft Genitalia: Deferred Pelvic: Deferred Rectal: Deferred Extremities: No calf tenderness, Normal capillary refill, Normal inspection, Normal range of motion, Non-tender, No pedal edema Musculoskeletal : Apperance: Normal Neurologic: Alert, dot compliance coordinator II-XII nml as Tested, No Motor Deficits, Normal Affect, Normal Mood, No Sensory Deficits Cerebellar Function: NOT DONE Reflexes: NOT DONE Skin: Dry, Normal Color, Warm Peripheral Pulses: 3+ Radial (R), 3+ Radial (L) Lymphatic: No Adenopathy Was a procedure done? Was a procedure done?: No GI differential Dx Differential Diagnosis: Constipation, Diverticular disease, Esophagitis, Gastritis/PUD, Gastroenteritis, Electrolyte Imbalance, Food Poisoning, Bacterial, Viral X-Ray, Labs, Meds, VS Vital Signs Date Time Temp Pulse Resp B/P (MAP) Pulse Ox O2 Delivery O2 Flow Rate FiO2 11/04/24 11:13 97.8 79 22 150/85 (106) 100 Current Medications Medications (Trade) Dose Ordered Sig/Bob Route Start Time Stop Time Status Last Admin Sodium Chloride 1,000 ml @ 1,000 mls/hr Q1H ONCE IV 11/04/24 11:30 11/04/24 12:29 11/04/24 11:33 Patient alert. Complaining of nausea vomiting. Uses methamphetamine. Vitals stable. Establish intravenous access. Was given fluids. Reviewed her previous visit. Explained to the patient. Continue cardiac monitoring. Time of 1ST Reevaluation: 11:38 Reevaluation 1ST: Unchanged Patient Education/Counseling: Diagnosis, Treatment Family Education/Counseling: No Family Present Additional Information I reviewed the following notes from patient's past medical encounters: [facility] discharge 10/14/2024; [facility] ER 07/14/2024, 01/06/2023 The following tests were ordered, and results were reviewed by me: CBC, BMP, UA Additional Information was gathered from interviewing the following independent historians: EMS I discussed treatment and results with medical personnel. Departure 1 Departure Time of Disposition: 11:41 Impression: Primary Impression: Intractable nausea and vomiting Disposition: ADMITTED INPATIENT Admit to: Med Surg Condition: Guarded Critical Care Note Critical Care Time?: No Stability Stability form required: No Heart Score Heart Score: Heart Score Response (Comments) Value History N/A 0 EKG N/A 0 Age N/A 0 Risk Factors N/A 0 Troponin N/A 0 Total 0 I personally scribed for BARRETT ZARAGOZA MD ([email or web address]) on 11/04/24 at 11:21. Electronically submitted by Misty Marshall ([employer] I personally scribed for BARRETT ZARAGOZA MD ([email or web address]) on 11/04/24 at 11:23. Electronically submitted by Misty Marshall ([employer]). I personally scribed for BARRETT ZARAGOZA MD ([email or web address]) on 11/04/24 at 11:41. Electronically submitted by Misty Marshall ([employer] BARRETT ZARAGOZA MD Nov 04, 2024 11:21
[2024-11-04] MEDS: SODIUM CHLORIDE 0.9% 1,000 ML IV ONE (11:33)
[2024-11-04 12:52] LABS: Basophils # (auto) 0 10 ^3/uL (0-0.2); Basophils % (auto) 0.4 % (0.0-2.0); Eosinophils # (auto) 0.1 10 ^3/uL (0-0.8); Eosinophils % (auto) 1.2 % (0.0-7.0); Hematocrit 34.6 % (36.0-46.0); Lymphocytes # (auto) 1.5 10 ^3/uL (0.4-5.4); Mean Corpuscular Hemoglobin 28.1 pg (28.0-32.0); Monocytes # (auto) 0.4 10 ^3/uL (0-1.3); Monocytes % (auto) 5.5 % (0.0-12.0); Neutrophils # (auto) 4.5 10 ^3/uL (1.6-8.6); Neutrophils % (auto) 69.9 % (37.0-80.0); Nucleated Red Blood Cells % 0.1 %; Platelet Count (auto) 199 10^3/uL (140-450); Red Blood Cells 3.93 10^6/uL (4.0-5.20); Red Cell Distribution Width 15.8 % (11.8-14.3); White Blood Cell 6.5 10^3/uL (4.4-10.8)
[2024-11-04 13:06] LABS: Anion Gap 7 (5-15)
[2024-11-04 13:11] LABS: BUN/Creatinine Ratio 11.3 (10.0-20.0)
--- NOTE | 2024-11-04 13:26 | DVHHP2 ---
History of Present Illness Reason for Visit: n/v dizziness History of Present Illness 49-year-old female past medical history hypertension asthma hyperlipidemia gallstones recent diagnosed for colitis denies any surgical history chief complaint patient was here for nausea and vomiting and dizziness that started today patient stated she vomited 4 times but there was no blood in her emesis. She does complain of flank pain but denies any abdominal pain. Patient denies any chest pain denies any shortness of the breath. It appears patient was just recently discharged December 15, 2023 and she was diagnosed with colitis. When evaluating patient's labs and imaging normal saline was given CT scan reviewed from October 10, 2024 shows colitis no new imaging was completed. CBC was unremarkable BNP was unremarkable only low potassium glucose was 120. With these findings we will admit patient for IV hydration Past Medical History Hypertension asthma hyperlipidemia gallstones and colitis Past Surgical History Denies surgical history Family History Reviewed, non-contributory to the management of this case. Past Social History Patient does smoke by history documented history of meth Review of Systems Constitutional: No: Fever, Chills, Sweats, Weakness, Malaise, Other Eyes: No: Pain, Vision change, Conjunctivae inflammation, Eyelid inflammation, Other, Redness ENT: No: Ear pain, Ear discharge, Nose pain, Nose discharge, Nose congestion, Mouth pain, Mouth swelling, Throat pain, Throat swelling, Other Respiratory: No: Cough, Dry, Shortness of breath, SOB with excertion, Wheezing, Hemoptysis, Pleuritic Pain, Sputum, Wheezing, Other Cardiovascular: No: Chest Pain, Palpitations, Orthopnea, Paroxysmal Noc. Dyspnea, Edema, Lt Headedness, Other Gastrointestinal: Nausea, Vomiting; No: Abdominal Pain, Diarrhea, Constipation, Melena, Hematochezia, Other Genitourinary: No Dysuria, No Frequency, No Incontinence, No Hematuria, No Retention, No Other Musculoskeletal: No: other, neck pain, shoulder pain, arm pain, back pain, hand pain, leg pain, foot pain Skin: No: Rash, Lesions, Jaundice, Bruising, Other Neurological: No: Weakness, Numbness, Incoordination, Change in speech, Confusion, Seizures, Other Allergies: Coded Allergies: NO KNOWN ALLERGIES (Unverified , 01/06/23) Exam Vital Signs Vital Signs Date Time Temp Pulse Resp B/P (MAP) Pulse Ox O2 Delivery O2 Flow Rate FiO2 12/25/24 12:00 16 96 Room Air* 0 21 11/04/24 11:13 97.8 79 150/85 (106) General Appearance: Alert, Oriented X3, Cooperative, Other (asleep) HEENT: Atraumatic, PERRLA, EOMI, Mucous membr. moist/pink Respiratory: Clear to auscultation, Normal air movement Cardiovascular: Regular rate, Normal S1, Normal S2, No murmurs Abdominal: Normal bowel sounds, Soft, No tenderness, No hepatospenomegaly, No masses Extremities: No clubbing, No cyanosis, No edema, Normal pulses, No tenderness/swelling Skin: No rashes, No breakdown, No significant lesion Neuro: Normal speech, Strength at 5/5 X4 ext, Normal tone, Sensation intact, Cranial nerves 3-12 NL Psych/Mental Status: Mental status NL, Mood NL Labs/Xrays I reviewed CT scan from October 10, 2024 it showed colitis I reviewed labs, imaging CT scan abdomen pelvis, EKG and all diagnostic studies on this patient from ED records and the medical chart Labs Test 11/04/24 12:45 Range/Units Assessment/Plan Assessment/Plan acute intractable n/v (pt recent dx with colititis 10/14/24) ordered clr liquid diet for now ordered ivf for now ordered protonix ordered bentyl ordered ceftriaxone and flagyl for now acute dizziness likely from dehydration from vomiting ordered iv hydration marijuana abuse enc abstinence chronic meth use enc abstinence chronic problems htn asthma hld colitits chronic gallstones plan admit to medicine for iv hydration Plan discussed with: Patient Date of Service: Nov 04, 2024 Billing Provider: ANMOL LUND DNP Common Visit Codes: [id number] INP/OBS CARE (HIGH) ANMOL LUND DNP Nov 04, 2024 13:26
[2024-11-04 13:41] LABS: Blood Urea Nitrogen 8 mg/dL (9-23); Calcium 9.2 mg/dL (8.7-10.4); Carbon Dioxide 26 mmol/L (20-31); Chloride 107 mmol/L (98-107); Glucose 120 mg/dL (74-106); Potassium 3.4 mmol/L (3.5-5.1); Sodium 140 mmol/L (136-145)
[2024-11-04] MEDS ORDERED: ONDANSETRON HCL 4 MG/2 ML VIAL IV PRN (14:00)
[2024-11-04] MEDS ORDERED: MORPHINE SULFATE INJ 2 MG/ml SYRG IV PRN (14:00)
[2024-11-04] MEDS ORDERED: DOCUSATE SOD 100 MG CAP PO PRN (14:00)
[2024-11-04] MEDS: SODIUM CHLORIDE 0.9% 1,000 ML IV SCH (14:51)
[2024-11-04] MEDS: cefTRIAXone 1GM/50ML D5W 50 ML IV ONE (14:51)
[2024-11-04] MEDS ORDERED: NITROGLYCERIN 0.4 MG SL TAB SL PRN (15:15)
[2024-11-04] MEDS: metroNIDAZOLE 500MG/100ML 100 ML IV ONE (15:19)
[2024-11-04] MEDS: DICYCLOMINE HCL 10 MG CAP PO SCH (17:40)
[2024-11-04] MEDS: FAMOTIDINE 20 MG TAB PO SCH (22:09)
[2024-11-04] MEDS: metroNIDAZOLE 500MG/100ML 100 ML IV SCH (22:09)
[2024-11-05] VITALS (8 sets, daily range): BP systolic 140–161; BP diastolic 70–89; PULSE 81–103; RESP 18–20; TEMP 98.2–99; O2SAT 96–100
[2024-11-05 03:16] LABS: Urine Bacteria None Seen /hpf (None Seen)
[2024-11-05 03:26] LABS: Urine Blood Negative /uL (Negative); Urine Clarity Turbid (Clear); Urine Color Light-Yellow (Yellow); Urine Mucus FEW (None Seen); Urine Protein, UAD Negative (Negative); Urine Specific Gravity 1.011 (1.001-1.035); Urine Squamous Epithelial Cell MOD /hpf (<5); Urine Urobilinogen Normal (Negative); Urine WBC 4 /hpf (0 - 5); Urine pH 6.5 (5.0-9.0)
[2024-11-05 06:49] LABS: Alanine Aminotransferase 20 U/L (7-40); Albumin 3.6 g/dL (3.2-4.8); Alkaline Phosphatase 73 U/L (46-116); Anion Gap 8 (5-15); Aspartate Aminotransferase 16 U/L (13-40); BUN/Creatinine Ratio 7.8 (10.0-20.0); Bilirubin, Total 0.5 mg/dL (0.2-1.0); Blood Urea Nitrogen 5 mg/dL (9-23); Calcium 9.6 mg/dL (8.7-10.4); Carbon Dioxide 24 mmol/L (20-31); Chloride 108 mmol/L (98-107); Glucose 82 mg/dL (74-106); Potassium 3.5 mmol/L (3.5-5.1); Sodium 140 mmol/L (136-145); Total Protein 6.9 g/dL (5.7-8.2)
[2024-11-05 07:07] LABS: Basophils # (auto) 0 10 ^3/uL (0-0.2); Basophils % (auto) 0.5 % (0.0-2.0); Eosinophils # (auto) 0.1 10 ^3/uL (0-0.8); Eosinophils % (auto) 1.6 % (0.0-7.0); Hematocrit 34.4 % (36.0-46.0); Hemoglobin 11.2 g/dL (12.2-16.2); Lymphocytes # (auto) 1.9 10 ^3/uL (0.4-5.4); Lymphocytes % (auto) 42.3 % (10.0-50.0); Mean Corpuscular Hemoglobin 28.4 pg (28.0-32.0); Mean Corpuscular Hgb Conc. 32.5 g/dL (32.0-36.0); Mean Corpuscular Volume 87.4 fL (80.0-100.0); Monocytes # (auto) 0.3 10 ^3/uL (0-1.3); Monocytes % (auto) 6.1 % (0.0-12.0); Neutrophils # (auto) 2.3 10 ^3/uL (1.6-8.6); Neutrophils % (auto) 49.5 % (37.0-80.0); Nucleated Red Blood Cells % 0.4 %; Platelet Count (auto) 199 10^3/uL (140-450); Red Blood Cells 3.94 10^6/uL (4.0-5.20); Red Cell Distribution Width 15.7 % (11.8-14.3); White Blood Cell 4.6 10^3/uL (4.4-10.8)
[2024-11-05] MEDS: cefTRIAXone 1GM/50ML D5W 50 ML IV SCH (09:43)
--- NOTE | 2024-11-05 13:58 | DVHDS2 ---
Discharge Summary Date of Admission Nov 04, 2024 at 15:03 Date of Discharge: Nov 05, 2024 Admitting Diagnosis Intractable nausea and vomiting Labs/Diagnostic Data: Laboratory Results Test 11/05/24 05:39 11/05/24 01:50 White Blood Count 4.6 10^3/uL (4.4-10.8) Red Blood Count 3.94 10^6/uL (4.0-5.20) Hemoglobin 11.2 g/dL (12.2-16.2) Hematocrit 34.4 % (36.0-46.0) Mean Corpuscular Volume 87.4 fL (80.0-100.0) Mean Corpuscular Hemoglobin 28.4 pg (28.0-32.0) Mean Corpuscular Hemoglobin Concent 32.5 g/dL (32.0-36.0) Red Cell Distribution Width 15.7 % (11.8-14.3) Platelet Count 199 10^3/uL (140-450) Mean Platelet Volume 9.3 fL (6.9-10.8) Neutrophils (%) (Auto) 49.5 % (37.0-80.0) Lymphocytes (%) (Auto) 42.3 % (10.0-50.0) Monocytes (%) (Auto) 6.1 % (0.0-12.0) Eosinophils (%) (Auto) 1.6 % (0.0-7.0) Basophils (%) (Auto) 0.5 % (0.0-2.0) Neutrophils # (Auto) 2.3 10 ^3/uL (1.6-8.6) Lymphocytes # (Auto) 1.9 10 ^3/uL (0.4-5.4) Monocytes # (Auto) 0.3 10 ^3/uL (0-1.3) Eosinophils # (Auto) 0.1 10 ^3/uL (0-0.8) Basophils # (Auto) 0 10 ^3/uL (0-0.2) Nucleated Red Blood Cells 0.4 % Sodium Level 140 mmol/L (136-145) Potassium Level 3.5 mmol/L (3.5-5.1) Chloride Level 108 mmol/L (98-107) Carbon Dioxide Level 24 mmol/L (20-31) Anion Gap 8 (5-15) Blood Urea Nitrogen 5 mg/dL (9-23) Creatinine 0.64 mg/dL (0.550-1.02) Glomerular Filtration Rate Calc 110 mL/min (>90) BUN/Creatinine Ratio 7.8 (10.0-20.0) Serum Glucose 82 mg/dL (74-106) Calcium Level 9.6 mg/dL (8.7-10.4) Total Bilirubin 0.5 mg/dL (0.2-1.0) Aspartate Amino Transferase (AST) 16 U/L (13-40) Alanine Aminotransferase (ALT) 20 U/L (7-40) Alkaline Phosphatase 73 U/L (46-116) Total Protein 6.9 g/dL (5.7-8.2) Albumin 3.6 g/dL (3.2-4.8) Urine Color Light-yellow (Yellow) Urine Clarity Turbid (Clear) Urine pH 6.5 (5.0-9.0) Urine Specific [place] 1.011 (1.001-1.035) Urine Protein Negative (Negative) Urine Ketones Negative (Negative) Urine Blood Negative /uL (Negative) Urine Nitrite Negative (Negative) Urine Bilirubin Negative (Negative) Urine Urobilinogen Normal mg/dL (Negative) Urine Leukocyte Esterase Negative /uL (Negative) Urine RBC 2 /hpf (0 - 4) Urine WBC 4 /hpf (0 - 5) Urine Squamous Epithelial Cells Mod /hpf (<5) Urine Bacteria None seen /hpf (None Seen) Urine Mucus Few (None Seen) Urine Glucose Normal mg/dL (Normal) Other Laboratory Tests 11/05/24 05:39 Brief Hx & Hospital Course: History of Present Illness 49-year-old female past medical history hypertension asthma hyperlipidemia gallstones recent diagnosed for colitis denies any surgical history chief complaint patient was here for nausea and vomiting and dizziness that started today patient stated she vomited 4 times but there was no blood in her emesis. She does complain of flank pain but denies any abdominal pain. Patient denies any chest pain denies any shortness of the breath. It appears patient was just recently discharged December 15, 2023 and she was diagnosed with colitis. When evaluating patient's labs and imaging normal saline was given CT scan reviewed from October 10, 2024 shows colitis no new imaging was completed. CBC was unremarkable BNP was unremarkable only low potassium glucose was 120. With these findings we will admit patient for IV hydration. Course of hospitalization: Patient was found to be without any appreciable abdominal pain including negative Shay's sign with assessment. Patient states that her nausea and vomiting has resolved. She does have some slight dizziness, but does report getting in and out of the commode without any difficulty. Patient has been tolerating diet without any issues. Patient has been without any nausea or vomiting, currently afebrile. Patient will be discharged home and is instructed to stop using illicit drugs as well as marijuana which are probably contributing factors to her symptoms. Patient probably suffers from questionable viral gastroenteritis, with probable cannabinoid induced hyperemesis. Physical examination General: Alert and Oriented x3. No acute distress. Well-nourished. Obese Eyes: EOMI. Anicteric. HENT: Moist mucous membranes. Lungs: Clear to auscultation bilaterally. No accessory muscle use. Cardiovascular: Regular rate and rhythm. No murmur. No JVD. Abdomen: Soft, non-tender and non-distended. No palpable masses. Extremities: No edema. Non-tender. Skin: No rashes or lesions. Warm. Neurologic: No focal neurological deficits. CN II-XII grossly intact, but not individually tested. Psychiatric: Cooperative. Appropriate mood and affect. Total time spent with patient discussing and formulating plan of care: 35 minutes. This medical document was created using an electronic medical record system with [employer] dictation system. Although this document has been carefully reviewed, there may still be some phonetic and typographical errors. These areas are purely typographical due to imperfections of the software programs, and do not reflect any compromise in the patient's medical care. Condition at Discharge: Guarded Final Diagnosis/Problems List Abdominal pain, probably secondary to viral gastroenteritis and polysubstance use Secondary Diagnosis: Polysubstance abuse Obesity Recent colitis Cholelithiasis Discharge Disposition: Home Discharge Instruct/Medications Diet: Regular Activity: No Restrictions, As Tolerated Follow Up/Referral: Follow up with PCP in 1-2 weeks Medications: Continue all previous home medications 36 Discharge Statement: "Patient was advised to return to the ER or call 911 if any headaches, dizziness, shortness of breath, chest pain, abdominal pain, bleeding, fevers, or worsening of medical condition. Patient was counseled about treatment plan, medications, possible side effects, patientverbalized understanding. All questions were answered to the best of my ability. This discharge took greater then 30 minutes in planning, reviewing documentation, counseling the patient, and discussing with other team members." ASSESSMENT ASSESSMENT Assessment Abdominal pain, probably secondary to viral gastroenteritis and polysubstance use Date of Service: Nov 05, 2024 Billing Provider: FRANICSCO GALAVIZ NP Common Visit Codes: [id number]/[id number] DISCH DAY >30min FRANCISCO GALAVIZ NP Nov 05, 2024 13:58
[2024-11-05] MEDS: MECLIZINE HCL 25 MG TAB PO PRN (16:53)
[2024-11-06 01:00] VITALS: BP 144/70; PULSE 93; RESP 18; TEMP 99; O2SAT 97
[2024-11-06 05:00] VITALS: BP 117/60; PULSE 81; RESP 17; TEMP 98.7; O2SAT 99
[2024-11-06 09:00] VITALS: BP 148/81; PULSE 84; RESP 18; TEMP 98.1; O2SAT 96
[2024-11-06 12:39] VITALS: BP 159/85; PULSE 80; RESP 16; TEMP 98.3; O2SAT 93
--- NOTE | 2024-11-06 13:45 | DVHPN2 ---
Subjective Patient continues to report having slight dizziness as well as wanting her gallbladder reassessed because she came in for nausea and vomiting. Reviewed: Care Plan, H&P, Labs, Medications Changes from previous H/P or p: No Changes General: Per HPI, Chills Eyes: No Pain, No Vision change, No Conjunctivae inflammation, No Eyelid inflammation, No Other, No Redness ENT: No Ear pain, No Ear discharge, No Nose pain, No Nose discharge, No Nose congestion, No Mouth pain, No Mouth swelling, No Throat pain, No Throat swelling, No Other Cardiovascular: No Chest Pain, No Palpitations, No Orthopnea, No Paroxysmal Noc. Dyspnea, No Edema, No Lt Headedness, No Other Respiratory: No Cough, No Dry, No Shortness of breath, No SOB with excertion, No Wheezing, No Hemoptysis, No Pleuritic Pain, No Sputum, No Other Gastrointestinal: Nausea, Vomiting; No Abdominal Pain, No Diarrhea, No Constipation, No Melena, No Hematochezia, No Other Genitourinary: No Dysuria, No Frequency, No Incontinence, No Hematuria, No Retention, No Other Musculoskeletal: No other, No neck pain, No shoulder pain, No arm pain, No back pain, No hand pain, No leg pain, No foot pain Skin: No Rash, No Lesions, No Jaundice, No Bruising, No Other Objective Vitals Vital Signs Date Time Temp Pulse Resp B/P (MAP) Pulse Ox O2 Delivery O2 Flow Rate FiO2 11/06/24 12:39 98.3 80 16 159/85 (109) 93 98.3 11/06/24 08:00 Room Air* 0 21 Intake/Output Intake and Output 11/06/24 07:00 Intake Total 2475 ml Balance 2475 ml Intake Oral 1625 ml IV Total 850 ml # Voids 5 General Appearance: Alert, Oriented X3, Cooperative, No acute distress, Other (Morbidly obese) HEENT: Atraumatic, PERRLA Lungs: Clear to auscultation, Normal air movement Cardiovascular: Normal S1, Normal S2 Abdomen: Normal bowel sounds, Other (Negative Shay's sign) Musculoskeletal: Normal sensory function, Normal motor function Neuro: Normal gait, Normal speech Psych/Mental Status: Mental status NL, Mood NL Medications Current Medications Medications Dose Ordered Sig/Bob Route Start Time Stop Time Status Last Admin Dose Admin Famotidine 20 mg BID PO 11/04/24 22:00 11/06/24 09:37 20 MG Ondansetron HCl 4 mg Q4HP PRN IV 11/04/24 14:00 Docusate Sodium 100 mg BIDPRN PRN PO 11/04/24 14:00 Dicyclomine HCl 20 mg QID PO 11/04/24 18:00 11/06/24 06:36 20 MG Ceftriaxone Sodium 50 ml @ 100 mls/hr DAILY@09 IV 11/05/24 09:00 11/06/24 09:37 100 MLS/HR Metronidazole 100 ml @ 100 mls/hr Q8HR IV 11/04/24 22:00 11/06/24 06:30 100 MLS/HR Nitroglycerin 0.4 mg Q5MINP PRN SL 11/04/24 15:15 Meclizine HCl 25 mg Q8HPRN PRN PO 11/05/24 16:45 11/05/24 16:53 25 MG Laboratory Results Laboratory Tests 11/05/24 05:39 Urinalysis Test 11/05/24 01:50 Urine Color Light-yellow (Yellow) Urine Clarity Turbid (Clear) H Urine pH 6.5 (5.0-9.0) Urine Specific [place] 1.011 (1.001-1.035) Urine Protein Negative (Negative) Urine Ketones Negative (Negative) Urine Blood Negative /uL (Negative) Urine Nitrite Negative (Negative) Urine Bilirubin Negative (Negative) Urine Urobilinogen Normal mg/dL (Negative) Urine Leukocyte Esterase Negative /uL (Negative) Urine RBC 2 /hpf (0 - 4) Urine WBC 4 /hpf (0 - 5) Urine Squamous Epithelial Cells Mod /hpf (<5) Urine Bacteria None seen /hpf (None Seen) Urine Mucus Few (None Seen) Urine Glucose Normal mg/dL (Normal) Microbiology Microbiology Date/Time Source Procedure Growth Status 11/04/24 23:50 Nose MRSA Screen - Final Complete Labs and/or images reviewed: Labs reviewed by me, Image(s) reviewed by me Assessment/Plan Assessment/Plan Impression: -Intractable nausea and vomiting probably secondary to polysubstance use as well as viral gastroenteritis -Polysubstance abuse -Obesity -Recent colitis -Cholelithiasis Plan: -discussion was made with the patient regarding her plan of care including advancing her diet, ambulation, in addition to possibility being discharged if she was able to tolerate oral intake. Patient has been eating without any issues. She has been ambulating without any assistance. Today she was requesting for her gallbladder to be rescanned before being discharged home because of her nausea and vomiting that she had during her chief complaint. -gallbladder ultrasound -proceed with discharging patient if gallbladder is found to not have cholecystitis. Currently patient was afebrile, with normal LFTs, as well as no leukocytosis. Total time spent with patient discussing and formulating plan of care: 35 minutes. This medical document was created using an electronic medical record system with [employer] dictation system. Although this document has been carefully reviewed, there may still be some phonetic and typographical errors. These areas are purely typographical due to imperfections of the software programs, and do not reflect any compromise in the patient's medical care. Plan discussed with: Patient, Other (RN) My Orders Orders - FRANCISCO GALAVIZ NP Procedure Category Date Status Time Discharge DISCHARGE 11/05/24 Transmitted 13:49 Meclizine Tablet [facility] 11/05/24 In Process (Antivert Tablet) 16:45 Gallbladder US 11/06/24 Logged 13:21 Date of Service: Nov 06, 2024 Billing Provider: FRANCISCO GALAVIZ NP Common Visit Codes: [id number] INP/OBS CARE(HIGH) FRANCISCO GALAVIZ NP Nov 06, 2024 13:45
[2024-11-06 17:29] VITALS: BP 163/90; PULSE 77; RESP 17; TEMP 98.1; O2SAT 94
--- NOTE | 2024-11-06 17:29 | DVH ---
INDICATION: Nausea and vomiting TECHNIQUE: Multiple real-time sonographic images of the abdomen were obtained. COMPARISON: None FINDINGS: The liver is homogenous in echogenicity. The liver measures 14.1 cm. No intrahepatic bilia ry ductal dilatation is noted. The gallbladder wall measures 0.26 cm and is unremarkable. Gallstone noted in the gallbladder. Nega tive ultrasound Shay's sign is elicited. The common duct measures 0.48 cm and is unremarkable. No pericholecystic fluid is noted. The right kidney measures 9.2 cm. No hydronephrosis. The pancreas is not well visualized due to obscuration from bowel gas. The visualized portions of the IVC and aorta are grossly unremarkable. IMPRESSION: 1. Cholelithiasis no dilated common bile duct. Negative ultrasound Shay's sign.
== END 2024-11-06 21:15 | disposition home or self-care (01) | DRG 249 ==
LOC: ER 11:07 → EDBD 11:07 → OVERFLOW 15:03 → EAST 17:10
PROVIDERS: ADMIT Nurse Practitioner Family; ATTEND Nurse Practitioner Acute Care
DX: A08.4 Viral intestinal infection, unspecified (principal); Z68.43 Body mass index [BMI] 50.0-59.9, adult; K80.20 Calculus of gallbladder without cholecystitis without obstruction; E66.9 Obesity, unspecified; E78.5 Hyperlipidemia, unspecified; E86.0 Dehydration; F12.10 Cannabis abuse, uncomplicated; J45.909 Unspecified asthma, uncomplicated; T50.995A Adverse effect of other drugs, medicaments and biological substances, initial encounter; F15.90 Other stimulant use, unspecified, uncomplicated; I10 Essential (primary) hypertension; F17.210 Nicotine dependence, cigarettes, uncomplicated; Z82.49 Family history of ischemic heart disease and other diseases of the circulatory system; Y92.89 Other specified places as the place of occurrence of the external cause
CPT/HCPCS: 36415; 76705; 80048; 80053; 81001; 85025; 87081; 96361; 96365; 96368; G0378; J3490

== ENCOUNTER 2024-11-13 09:11 | Emergency (ER) | payer OTHER ==
[~2024-11-13] VITALS: Ht 149.9 cm; Wt 120.5 kg
--- NOTE | 2024-11-13 10:49 | ED.PDOC ---
HPI (NEURO) HPI Comments 49 y.o female with PMH of gallstones, HTN, HDL, left cornea, and asthma, presents to the ED for a chief complaint of dizziness that has been ongoing since her discharge date at this hospital which was on 11/06/24. Patient is unable to stand or ambulate due to dizziness and per family member who brought her in, states patient is not acting her usual self and has brief episodes of confusion at home. Patient is alert and oriented x 4 during assessment, is able to answer all questions and follow commands. Patient was seen at this hospital on 11/04/25 for abdominal pain, was admitted for 2 days and discharged with a diagnose of gastroenteritis and polysubstance abuse. Patient states she previously came around September 2024 for same abdominal pain and was told she had gallstones. At this time, patient denies any abdominal pain, nausea, vomiting, diarrhea, fever or chills. 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 Hx Family History Family History: Family hx of HTN Social History Smoker: Cigarettes Alcohol: Denies ETOH Use Drugs: Methamphetamine Lives In: Home Constitutional: denies: chills, diaphoresis, fatigue, fever, malaise, sweats, weakness, others EENTM: denies: blurred vision, double vision, ear bleeding, ear discharge, ear drainage, ear pain, ear ringing, eye pain, eye redness, hearing loss, mouth pain, mouth swelling, nasal discharge, nose bleeding, nose congestion, nose pain, photophobia, tearing, throat pain, throat swelling, voice changes, others Respiratory: denies: cough, hemoptysis, orthopnea, SOB at rest, shortness of breath, SOB with excertion, stridor, wheezing, others Cardiovascular: denies: chest pain, dizzy spells, diaphoresis, Dyspnea on exertion, edema, irregular heart beat, left arm pain, lightheadedness, palpitations, PND, syncope, others Gastrointestinal: denies: abdomen distended, abdominal pain, blood streaked bowels, constipated, diarrhea, dysphagia, difficulty swallowing, hematemesis, melena, nausea, poor appetite, poor fluid intake, rectal bleeding, rectal pain, vomiting, others Genitourinary: denies: abnormal vagina bleeding, burning, dyspareunia, dysuria, flank pain, frequency, hematuria, incontinence, pain, , vagina discharge, urgency, others Neurological: reports: dizziness; denies: fainting, headache, left sided numbness, left sided weakness, numbness, paresthesia, pre-existing deficit, right sided numbness, right sided weakness, seizure, speech problems, tingling, tremors, weakness, others Musculoskeletal: denies: back pain, gout, joint pain, joint swelling, muscle pain, muscle stiffness, neck pain, others Integumetry: denies: bruises, change in color, change in hair/nails, dryness, laceration, lesions, lumps, rash, wounds, others Allergic/Immunocompromised: denies: Difficulty Healing, Frequent Infections, Hives, Itching, others Hematologic/Lymphatic: denies: anemia, blood clots, easy bleeding, easy bruising, swollen glands, others Endocrine: denies: excessive hunger, excessive sweating, excessive thirst, excessive urination, flushing, intolerance to cold, intolerance to heat, unexplained weight gain, unexplained weight loss, others Psychiatric: denies: anxiety, bipolar disorder, depression, hopeless, panic disorder, schizophrenia, sleepless, suicidal, others All Other Systems: Reviewed and Negative Physical Exam General Appearance: Mild Distress, Obese HEENT: Normal ENT Inspection, PERRL/EOMI, 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) Neck: Full Range of Motion, Non-Tender, Normal, Normal Inspection Respiratory: Chest Non-Tender, Lungs Clear, No Accessory Muscle Use, No Respiratory Distress, Normal Breath Sounds Cardiovascular: No Edema, No JVD, No Murmur, No Gallop, Normal Peripheral Pulses, Regular Rate/Rhythm Breast Exam: Deferred Gastrointestinal: No Organomegaly, Non Tender, No Pulsatile Mass, Normal Bowel Sounds, Soft, Other (Morbid obesity) Genitalia: Deferred Pelvic: Deferred Rectal: Deferred Extremities: No calf tenderness, Normal capillary refill, Normal inspection, Normal range of motion, Non-tender, No pedal edema Neurologic: Alert, Depressed Affect, Disoriented, Dizziness, Motor Weakness, Speech Problem Cerebellar Function: Unable to Test Reflexes: NOT DONE Skin: Dry, Normal Color, Warm Peripheral Pulses: 1+ carotid (R), 1+ carotid (L) Lymphatic: No Adenopathy EKG EKG : Pulse Rate (adult): 94 [place]: RAD Cardiac Rhythm: NSR Was a procedure done? Was a procedure done?: No Differential Diagnosis (SZ) Seizure: Hyperventilation, CVA/TIA, Hypocalcemia, Hypoglycemia, Hyponatremia, Mass Lesion CVA: Electrolyte Imbalance, Hypoglycemia, Mass Lesion, TIA General Weakness: Anemia, Dehydration, Dysrhythmia, Electrolyte imbalance, Hypoglycemia, Hypotension, Hypovolemia, Labyrinthitis, Renal failure, TIA, Vertigo: peripheral, Vestibular neuronitis Headache: Migraine, Intracerebral Hemorrhage, Mass Lesion, Sinusitis X-Ray, Labs, Meds, VS Vital Signs Date Time Temp Pulse Resp B/P (MAP) Pulse Ox O2 Delivery O2 Flow Rate FiO2 11/13/24 15:20 83 18 98 Room Air 11/13/24 15:20 98.3 83 18 150/80 (103) 98 98.3 11/13/24 13:30 98.0 86 16 144/90 (108) 95 98.0 11/13/24 11:24 94 11/13/24 10:20 97.8 90 16 153/98 (116) 98 97.8 11/13/24 09:25 99.0 91 20 188/108 (134) 100 11/13/24 09:24 94 Lab Test 11/13/24 12:03 Range/Units White Blood Count 5.0 4.4-10.8 10^3/uL Red Blood Count 4.59 4.0-5.20 10^6/uL Hemoglobin 13.0 12.2-16.2 g/dL Hematocrit 39.7 36.0-46.0 % Mean Corpuscular Volume 86.6 80.0-100.0 fL Mean Corpuscular Hemoglobin 28.2 28.0-32.0 pg Mean Corpuscular Hemoglobin Concent 32.6 32.0-36.0 g/dL Red Cell Distribution Width 15.6 H 11.8-14.3 % Platelet Count 205 140-450 10^3/uL Mean Platelet Volume 9.4 6.9-10.8 fL Neutrophils (%) (Auto) 49.1 37.0-80.0 % Lymphocytes (%) (Auto) 42.4 10.0-50.0 % Monocytes (%) (Auto) 5.6 0.0-12.0 % Eosinophils (%) (Auto) 2.4 0.0-7.0 % Basophils (%) (Auto) 0.5 0.0-2.0 % Neutrophils # (Auto) 2.4 1.6-8.6 10 ^3/uL Lymphocytes # (Auto) 2.1 0.4-5.4 10 ^3/uL Monocytes # (Auto) 0.3 0-1.3 10 ^3/uL Eosinophils # (Auto) 0.1 0-0.8 10 ^3/uL Basophils # (Auto) 0 0-0.2 10 ^3/uL Nucleated Red Blood Cells 0.2 % D-Dimer, Quantitative 1.06 H 0.0-0.49 mg/L FEU Sodium Level 136 136-145 mmol/L Potassium Level 3.2 L 3.5-5.1 mmol/L Chloride Level 102 98-107 mmol/L Carbon Dioxide Level 26 20-31 mmol/L Anion Gap 8 5-15 Blood Urea Nitrogen 10 9-23 mg/dL Creatinine 0.95 0.550-1.02 mg/dL Glomerular Filtration Rate Calc 74 >90 mL/min BUN/Creatinine Ratio 10.5 10.0-20.0 Serum Glucose 169 H 74-106 mg/dL Calcium Level 9.9 8.7-10.4 mg/dL Magnesium Level 1.9 1.6-2.6 mg/dL Total Bilirubin 0.4 0.2-1.0 mg/dL Aspartate Amino Transferase (AST) 14 13-40 U/L Alanine Aminotransferase (ALT) 17 7-40 U/L Alkaline Phosphatase 75 46-116 U/L Troponin I High Sensitivity < 3 L </=34 ng/L Total Protein 8.1 5.7-8.2 g/dL Albumin 4.3 3.2-4.8 g/dL Current Medications Medications (Trade) Dose Ordered Sig/Bob Route Start Time Stop Time Status Last Admin Meclizine HCl (Antivert Tablet) 50 mg ONCE ONCE PO 11/13/24 13:45 11/13/24 13:46 DC 11/13/24 15:11 Ceftriaxone Sodium 50 ml @ 100 mls/hr ONCE ONCE IV 11/13/24 13:45 11/13/24 14:14 DC 11/13/24 15:18 Sodium Chloride 500 ml @ 500 mls/hr Q1H ONCE IV 11/13/24 15:00 11/13/24 15:59 DC 11/13/24 15:12 X-Ray, Labs, Meds, VS Comment COURSE IN THE EMERGENCY DEPARTMENT EVENTFUL PATIENT CAME IN COMPLAINING OF DIZZINESS ALTERED LEVEL OF CONSCIOUSNESS NAUSEA VOMITING AND DISORIENTED PATIENT HAS BEEN ADMITTED TWICE FOR THE SAME AND LAST DISCHARGE 11/06/2024 SHE WAS BETTER FOR A DAY AND THEN SHE STARTED HAVING THE SAME SYMPTOMS OF NAUSEA VOMITING DIZZINESS IN THE DISORIENTATION THE BLOOD PRESSURE IS 188/108 WITH A HEART RATE OF 91 CHEST X-RAY IS NORMAL CT HEAD SHOWS SINUSITIS TROPONIN LESS THAN THREE CBC NORMAL CMP POTASSIUM AT 3.2 WITH A BLOOD SUGAR OF 169 URINE PENDING D-DIMER 1.[address] ANGIO PENDING MELISA WINCHESTER TO FOLLOW Time of 1ST Reevaluation: 10:44 Reevaluation 1ST: Unchanged Time of 2ND Reevaluation: 17:57 Reevaluation 2ND: Improved Patient Education/Counseling: Diagnosis, Treatment, Prognosis Family Education/Counseling: Diagnosis, Treatment, Prognosis Assigned to Dr. DR VINCENT Change of Shift?: Yes Departure 1 Departure Time of Disposition: 18:15 Impression: Primary Impression: Poorly-controlled hypertension Additional Impressions: Gastritis and duodenitis Dizziness Hypokalemia Elevated d-dimer Morbid obesity with BMI of 60.0-69.9, adult Sinusitis chronic, ethmoidal Disposition: 30 STILL A PATIENT Condition: Fair Critical Care Note Critical Care Time?: No Stability Stability form required: No Heart Score Heart Score: Heart Score Response (Comments) Value History Slightly Suspicious 0 EKG Normal 0 Age 45-64 1 Risk Factors 1 or 2 risk factors 1 Troponin Normal limit 0 Total 2 I personally scribed for ANAMARIA BOOKER MD ([email or web address]) on 11/13/24 at 10:49. El ectronically submitted by Mahi Davis ([facility]). ANAMARIA BOOKER MD Nov 13, 2024 10:49
[2024-11-13] MEDS: SODIUM CHLORIDE 0.9% 500 ML IVB ONE (11:00)
[2024-11-13] MEDS: SODIUM CHLORIDE 0.9% 1,000 ML IV ONE (11:00)
--- NOTE | 2024-11-13 11:22 | DVH ---
XY CHEST TWO VIEWS ROUTINE CLINICAL HISTORY: Altered level of consciousness dizziness and disoriented COMPARISON: None TECHNIQUE: Frontal and lateral view of the chest was obtained FINDINGS: Lines and Tubes: None Lungs: No focal consolidation. Pleura: No effusion. No pneumothorax. Cardiomediastinal contours: Unremarkable Bones: No acute osseous abnormality. IMPRESSION: 1. No radiographic evidence of acute cardiopulmonary disease. HS:Y
--- NOTE | 2024-11-13 11:29 | DVH ---
EXAM: CT HEAD WITHOUT CONTRAST INDICATION: Confusion dizziness disoriented TECHNIQUE: CT of the head without intravenous contrast. Radiation Dose Information: CT Dose: CTDI volume is 51.81 mGy. Dose-length product is 727.05 mGy*cm The dose indicators for CT are the volume Computed Tomography (CT) Dose Index (CTDIvol) and the Dose Length Product (DLP), and are measured in units of mGy and mGy-cm, respectively. These indicators are not patient dose, but values generated from the CT scanner acquisition factors. The report includes radiation exposure data for exposures received during this examination. COMPARISON: None FINDINGS: There is no evidence of acute intracranial hemorrhage, extra-axial collection, mass effect, midline s hift, herniation or hydrocephalus. The ventricles, sulci and cisterns are age appropriate. The cook-white differentiation is intact. Patchy periventricular and subcortical white matter hypoattenuation is nonspecific but may be related to small vessel ischemic disease. Bilateral ethmoid mucoperiosteal thickening. Partially visualized left sphenoid sinus opacity. Other umaña, the visualized paranasal sinuses and mastoid air cells are clear. The surrounding soft tissues and osseous structures are unremarkable. IMPRESSION: 1. No CT evidence of acute intracranial abnormality. 2. Findings suggestive of sphenoethmoid sinusitis. HS:Y
[2024-11-13 12:25] LABS: Basophils # (auto) 0 10 ^3/uL (0-0.2); Basophils % (auto) 0.5 % (0.0-2.0); Eosinophils # (auto) 0.1 10 ^3/uL (0-0.8); Eosinophils % (auto) 2.4 % (0.0-7.0); Hematocrit 39.7 % (36.0-46.0); Lymphocytes # (auto) 2.1 10 ^3/uL (0.4-5.4); Lymphocytes % (auto) 42.4 % (10.0-50.0); Mean Corpuscular Hemoglobin 28.2 pg (28.0-32.0); Mean Corpuscular Hgb Conc. 32.6 g/dL (32.0-36.0); Mean Corpuscular Volume 86.6 fL (80.0-100.0); Monocytes # (auto) 0.3 10 ^3/uL (0-1.3); Monocytes % (auto) 5.6 % (0.0-12.0); Neutrophils # (auto) 2.4 10 ^3/uL (1.6-8.6); Neutrophils % (auto) 49.1 % (37.0-80.0); Nucleated Red Blood Cells % 0.2 %; Platelet Count (auto) 205 10^3/uL (140-450); Red Blood Cells 4.59 10^6/uL (4.0-5.20); Red Cell Distribution Width 15.6 % (11.8-14.3)
[2024-11-13 13:12] LABS: Alanine Aminotransferase 17 U/L (7-40); Albumin 4.3 g/dL (3.2-4.8); Alkaline Phosphatase 75 U/L (46-116); Anion Gap 8 (5-15); Aspartate Aminotransferase 14 U/L (13-40); BUN/Creatinine Ratio 10.5 (10.0-20.0); Blood Urea Nitrogen 10 mg/dL (9-23); Calcium 9.9 mg/dL (8.7-10.4); Carbon Dioxide 26 mmol/L (20-31); Chloride 102 mmol/L (98-107); Magnesium 1.9 mg/dL (1.6-2.6); Sodium 136 mmol/L (136-145)
[2024-11-13 13:13] LABS: Bilirubin, Total 0.4 mg/dL (0.2-1.0); Total Protein 8.1 g/dL (5.7-8.2)
[2024-11-13 13:23] LABS: Glucose 169 mg/dL (74-106); Potassium 3.2 mmol/L (3.5-5.1)
[2024-11-13] MEDS: MECLIZINE HCL 25 MG TAB PO ONE (15:11)
[2024-11-13] MEDS: SODIUM CHLORIDE 0.9% 500 ML IV ONE (15:12)
[2024-11-13] MEDS: cefTRIAXone 1GM/50ML D5W 50 ML IV ONE (15:18)
[2024-11-13 19:14] VITALS: TEMP 97.9
[2024-11-13] MEDS ORDERED: IOHEXOL 350 MG/ML 100ML IJ ONE (20:14)
--- NOTE | 2024-11-13 21:03 | DVH ---
EXAM: CT CT ANGIO CHEST CONTRAST History: PULMONARY EMBOLISM Comparison Study: None available TECHNIQUE: A digital well surveying engineer image was obtained. During the uneventful, intravenous administration of c ontrast material, multislice data acquisition was obtained through the chest. 3-D postprocessing is performed by technologist including MIP imaging Radiation Dose : CTDI vol 29.2 mGy, DLP 1070.14 mGy*cm. Findings: Lungs: The lungs are clear. Pleura: Unremarkable Heart/Great vessels: The visualized heart is unremarkable. No cardiomegaly or pericardial effusion. N o pulmonary embolism, aneurysm, or dissection. Mediastinum: Unremarkable Soft tissues/Bones: Mild multilevel degenerative changes of the thoracic spine. Cholelithiasis. The partially visualized upper abdomen is within normal limits. Impression: 1. No evidence of pulmonary embolism, aortic aneurysm, or dissection.
[2024-11-13 21:39] LABS: Urine Bacteria None Seen /hpf (None Seen); Urine Blood Negative /uL (Negative); Urine Clarity Ex.Turbid (Clear); Urine Color Light-Orange (Yellow); Urine Hyaline Cast MOD /lpf (0 - 2); Urine Mucus FEW (None Seen); Urine Protein, UAD 1+ (Negative); Urine Specific Gravity 1.034 (1.001-1.035); Urine Squamous Epithelial Cell MOD /hpf (<5); Urine Urobilinogen Normal (Negative); Urine WBC 2 /hpf (0 - 5); Urine pH 5.5 (5.0-9.0)
[2024-11-13 21:48] LABS: Amphetamine Screen, Urine Neg (NEGATIVE)
[2024-11-13 21:51] LABS: Barbiturate Scree,Urine Neg (NEGATIVE); Benzodiazephine Screen, Urine Neg (NEGATIVE); Cannabinoid Screen, Urine Neg (NEGATIVE); Cocaine Screen, Urine Neg (NEGATIVE); Opiate Scree,Urine Neg (NEGATIVE); Phencyclidine Screen, Urine Neg (NEGATIVE)
--- NOTE | 2024-11-13 23:19 | DVHINCON2 ---
BIENVENIDO ESCOBAR RESIDENT 11/13/24 2319: Date of service: Nov 13, 2024 Referring Physician . Reason for Consultation Hypertension History of Present Illness 49-year-old female with past medical history of hypertension, gallstone, hyperlipidemia, asthma who came to the hospital with a chief complaint of worsening dizziness. As per patient she came to the hospital on 11/06/2024 for the same reason where she was evaluated and she was sent home given all tests were negative. Patient came back again given symptoms did not improve. On ar rival to the hospital patient was hypertensive and had symptoms of dizziness. Patient has hypertension significantly improved over the course of hospitalization at the same time patient dizziness also improve at the time of evaluation patient denied any complaints as such including chest pain, shortness of breath, dizziness, visual changes, abdominal pain, any other symptoms. All the laboratories informed with the patient and given all imaging including CT chest and CT head is negative patient will be advised see primary care physician and prescribed Norvasc for blood pressure. Past Medical History hypertension, gallstone, hyperlipidemia, asthma Past Surgical History None Family History: Cervical cancer G8 MOTHER, Onset:40's - 50 Chronic kidney disease G8 FATHER, Onset:40's - 50 Family History Not able to obtain Social History Patient denied smoking, use of alcohol. Or any drug either use. Allergies: Coded Allergies: NO KNOWN ALLERGIES (Unverified , 01/06/23) Home Meds Active Scripts Amlodipine Besylate (NORVASC TABLET) 5 Mg Tb, 1 TAB PO DAILY for 15 Days, #15 TAB 5 Refills Prov:BIENVENIDO ESCOBAR RESIDENT 11/13/24 Famotidine (PEPCID TABLET) 20 Mg Tb, 1 TAB PO BID for 30 Days, #60 TAB 0 Refills Prov:GRIS BURLESON MD 10/14/24 Alum & Mag Hydrox-Simethicone (Maalox Multi Symptom Maxi) Symp Max Laurie, 1 MAX PO TIDPRN PRN for 30 Days, #90 ML Prov:GRIS BURLESON MD 10/14/24 Metronidazole (Flagyl) 500 Mg Tab, 1 TAB PO BID for 7 Days, #14 TAB Prov:GRIS BURLESON MD 10/14/24 Polyethylene Glycol 3350 (Miralax) 17 Gm Pow, 17 GM PO DAILYPRN PRN for 30 Days, #30 POW Prov:GRIS BURLESON MD 10/14/24 Cefpodoxime Proxetil (Cefpodoxime Proxetil) 200 Mg Tab, 1 TAB PO BID for 7 Days, #14 TAB Prov:GRIS BURLESON MD 10/14/24 Review of Systems At the time of evaluation, patient denied any symptoms. Eyes: No Pain, No Vision change, No Conjunctivae inflammation, No Eyelid inflammation, No Other, No Redness ENT: No Ear pain, No Ear discharge, No Nose pain, No Nose discharge, No Nose congestion, No Mouth pain, No Mouth swelling, No Throat pain, No Throat swelling, No Other Cardiovascular: No Chest Pain, No Palpitations, No Orthopnea, No Paroxysmal Noc. Dyspnea, No Edema, No Lt Headedness, No Other Respiratory: No Cough, No Dry, No Shortness of breath, No SOB with excertion, No Wheezing, No Hemoptysis, No Pleuritic Pain, No Sputum, No Other Gastrointestinal: No Nausea, No Vomiting, No Abdominal Pain, No Diarrhea, No Constipation, No Melena, No Hematochezia, No Other Genitourinary: No Dysuria, No Frequency, No Incontinence, No Hematuria, No Retention, No Other Musculoskeletal: No other, No neck pain, No shoulder pain, No arm pain, No back pain, No hand pain, No leg pain, No foot pain Skin: No Rash, No Lesions, No Jaundice, No Bruising, No Other Vital Signs Vital Signs Date Time Temp Pulse Resp B/P (MAP) Pulse Ox O2 Delivery O2 Flow Rate FiO2 11/13/24 19:14 97.9 88 18 138/94 (109) 97 97.9 11/13/24 15:20 Room Air Physical Exam General Appearance: Cooperative. Well developed. Well nourished. NAD Head Exam: Normal inspection Neck Exam: Normal inspection. Non-tender. Normal alignment Pulmonary/Respiratory: Chest non-tender. Clear bilateral breath sounds Cardiovascular/Chest: Regular rate and rhythm. No murmurs. No JVD. Peripheral Pulses: 2+ Radial (R). 2+ Radial (L). 2+ Pedal (R). 2+ Pedal (L) Abdominal Exam: Normal bowel sounds. Soft. Nontender. No hepatospenomegaly. No masses Ankle Exam: Negative ankle edema Lower extremities: Negative lower extremity edema Neuro/Mental Status: A&O x4. Coherent Thoughts/Psych: Normal thought pattern. Appropriate mood and affect. Good judgement and insight Appearance: In no acute distress Skin Exam: Normal inspection. Normal color. Warm. Dry Labs/Diagnostic Data Labs Test 11/13/24 21:30 11/13/24 12:08 11/13/24 12:03 Range/Units Urine Color Light-orange Yellow Urine Clarity Ex.turbid Clear Urine pH 5.5 5.0-9.0 Urine Specific [place] 1.034 1.001-1.035 Urine Protein 1+ H Negative Urine Ketones Negative Negative Urine Blood Negative Negative /uL Urine Nitrite Negative Negative Urine Bilirubin Negative Negative Urine Urobilinogen Normal Negative mg/dL Urine Leukocyte Esterase Negative Negative /uL Urine RBC 1 0 - 4 /hpf Urine WBC 2 0 - 5 /hpf Urine Squamous Epithelial Cells Mod <5 /hpf Urine Bacteria None seen None Seen /hpf Urine Hyaline Casts Mod 0 - 2 /lpf Urine Mucus Few None Seen Urine Glucose Normal Normal mg/dL Urine Opiates Screen Neg NEGATIVE Urine Fentanyl Screen Neg NEGATIVE Urine Barbiturates Screen Neg NEGATIVE Urine Phencyclidine Screen Neg NEGATIVE Urine Amphetamines Screen Neg NEGATIVE Urine Benzodiazepines Screen Neg NEGATIVE Urine Cocaine Screen Neg NEGATIVE Urine Cannabinoids Screen Neg NEGATIVE White Blood Count 5.0 4.4-10.8 10^3/uL Red Blood Count 4.59 4.0-5.20 10^6/uL Hemoglobin 13.0 12.2-16.2 g/dL Hematocrit 39.7 36.0-46.0 % Mean Corpuscular Volume 86.6 80.0-100.0 fL Mean Corpuscular Hemoglobin 28.2 28.0-32.0 pg Mean Corpuscular Hemoglobin Concent 32.6 32.0-36.0 g/dL Red Cell Distribution Width 15.6 H 11.8-14.3 % Platelet Count 205 140-450 10^3/uL Mean Platelet Volume 9.4 6.9-10.8 fL Neutrophils (%) (Auto) 49.1 37.0-80.0 % Lymphocytes (%) (Auto) 42.4 10.0-50.0 % Monocytes (%) (Auto) 5.6 0.0-12.0 % Eosinophils (%) (Auto) 2.4 0.0-7.0 % Basophils (%) (Auto) 0.5 0.0-2.0 % Neutrophils # (Auto) 2.4 1.6-8.6 10 ^3/uL Lymphocytes # (Auto) 2.1 0.4-5.4 10 ^3/uL Monocytes # (Auto) 0.3 0-1.3 10 ^3/uL Eosinophils # (Auto) 0.1 0-0.8 10 ^3/uL Basophils # (Auto) 0 0-0.2 10 ^3/uL Nucleated Red Blood Cells 0.2 % D-Dimer, Quantitative 1.06 H 0.0-0.49 mg/L FEU Sodium Level 136 136-145 mmol/L Potassium Level 3.2 L 3.5-5.1 mmol/L Chloride Level 102 98-107 mmol/L Carbon Dioxide Level 26 20-31 mmol/L Anion Gap 8 5-15 Blood Urea Nitrogen 10 9-23 mg/dL Creatinine 0.95 0.550-1.02 mg/dL Glomerular Filtration Rate Calc 74 >90 mL/min BUN/Creatinine Ratio 10.5 10.0-20.0 Serum Glucose 169 H 74-106 mg/dL Calcium Level 9.9 8.7-10.4 mg/dL Magnesium Level 1.9 1.6-2.6 mg/dL Total Bilirubin 0.4 0.2-1.0 mg/dL Aspartate Amino Transferase (AST) 14 13-40 U/L Alanine Aminotransferase (ALT) 17 7-40 U/L Alkaline Phosphatase 75 46-116 U/L Troponin I High Sensitivity < 3 L </=34 ng/L Total Protein 8.1 5.7-8.2 g/dL Albumin 4.3 3.2-4.8 g/dL Assessment Hypertensive urgency Morbid obesity Cholelithiasis History of asthma, no exacerbation Hypokalemia Plan/recommendation -given patient's symptoms likely related to high blood pressure, and significant improvement of symptoms after blood pressure normalized, patient advised to take prescribed medication on right 5 mg p.o. daily, follow with primary care physician, follow rigorously the advice given including respiratory salt diet less than 2 g per day, every day regular exercise at least 30-40 minutes per day, motivated to reduce weight given blood pressure can be improved with reduction of weight and keep the blood pressure record so she can bring medical record to primary care physician for better control of hypertension. Patient agreed with the discharge plan and she will follow with primary care physician in [place]. Plan discussed with: Patient MIMI CASTELLANOS MD 11/16/24 2005: Date of service: Nov 13, 2024 Family History: Cervical cancer G8 MOTHER, Onset:40's - 50 Chronic kidney disease G8 FATHER, Onset:40's - 50 Allergies: Coded Allergies: NO KNOWN ALLERGIES (Unverified , 01/06/23) Home Meds Active Scripts Amlodipine Besylate (NORVASC TABLET) 5 Mg Tb, 1 TAB PO DAILY for 15 Days, #15 TAB 5 Refills Prov:BIENVENIDO ESCOBAR RESIDENT 11/13/24 Famotidine (PEPCID TABLET) 20 Mg Tb, 1 TAB PO BID for 30 Days, #60 TAB 0 Refills Prov:GRIS BURLESON MD 10/14/24 Alum & Mag Hydrox-Simethicone (Maalox Multi Symptom Maxi) Symp Max Laurie, 1 MAX PO TIDPRN PRN for 30 Days, #90 ML Prov:GRIS BURLESON MD 10/14/24 Metronidazole (Flagyl) 500 Mg Tab, 1 TAB PO BID for 7 Days, #14 TAB Prov:GRIS BURLESON MD 10/14/24 Polyethylene Glycol 3350 (Miralax) 17 Gm Pow, 17 GM PO DAILYPRN PRN for 30 Days, #30 POW Prov:GRIS BURLESON MD 10/14/24 Cefpodoxime Proxetil (Cefpodoxime Proxetil) 200 Mg Tab, 1 TAB PO BID for 7 Days, #14 TAB Prov:GRIS BURLESON MD 10/14/24 Date of Service: Nov 13, 2024 Billing Provider: MIMI CASTELLANOS MD Common Visit Codes: [id number] INP/OBS CARE (HIGH) BIENVENIDO ESCOBAR RESIDENT Nov 13, 2024 23:19 MIMI CASTELLANOS MD Nov 16, 2024 20:05
[2024-11-13] MEDS ORDERED: AML5T PO (23:34)
[2024-11-14] MEDS: POTASSIUM EFFERVESENT TAB 25 MEQ PO ONE (00:12)
[2024-11-14 00:20] VITALS: BP 149/80; PULSE 87; RESP 16; O2SAT 96
--- NOTE | 2024-11-16 14:05 | ECG ---
[facility] Test Date: 2024-11-13 Test Time: 09:24:06 Pat Name: LUIS FELIPE OLMEDO Department: ER Room: Gender: F Bending Machine Set Up Operator: ER : 1975 Requested By: ANAMARIA BOOKER Order Number: [id number] Reading MD: Sebastián Mendes Measurements Intervals [place] Rate: 94 P: 55 SD: 172 QRS: 95 QRSD: 96 T: 33 QT: 363 QTc: 454 Interpretive Statements Sinus rhythm Borderline right axis deviation Electronically Signed On 11-17-2024 17:52:59 PST by Sebastián Mendes Please click the below link to view image of tracing.
== END 2024-11-14 00:22 | disposition home or self-care (01) ==
LOC: ER 09:11
DX: I10 Essential (primary) hypertension (principal); K29.70 Gastritis, unspecified, without bleeding; K29.80 Duodenitis without bleeding; E87.6 Hypokalemia; E78.5 Hyperlipidemia, unspecified; F17.210 Nicotine dependence, cigarettes, uncomplicated; J45.909 Unspecified asthma, uncomplicated; J32.9 Chronic sinusitis, unspecified; E66.01 Morbid (severe) obesity due to excess calories; Z68.44 Body mass index [BMI] 60.0-69.9, adult; Z79.899 Other long term (current) drug therapy
CPT/HCPCS: 36415; 70450; 71046; 71275; 80053; 80307; 81001; 83735; 84484; 85025; 85379; 93005; 96365; 99285; J0696; J7040; J8597; Q9967

== ENCOUNTER 2024-11-26 11:44 | Inpatient (IN) | payer OTHER ==
[~2024-11-26] VITALS: Ht 149.9 cm; Wt 113.1 kg
[~2024-11-26 11:44] MED LIST changes: +AML5T PO
--- NOTE | 2024-11-26 12:07 | ED.PDOC ---
GI ASSESSMENT HPI Comments This is a 49-year-old female who comes in with chief complaint of epigastric pain. The patient states that the pain started last night and is rated as a 10/10. The patient states that the pain is sharp in nature. It was nonradiating. The patient was diagnosed with gallstones on October 10 of last year. She is now also complains of some vomiting as well as nausea. Upon arrival, the patient was writhing in pain. Chief Complaint: Abdominal Pain Time Seen by MD: 11:58 Primary Care Provider: UNKNOWN Reviewed Notes: Nurses Notes, Medications, Allergies (No allergies to medications) Allergies: Coded Allergies: NO KNOWN ALLERGIES (Unverified , 01/06/23) Home Meds Active Scripts Amlodipine Besylate (NORVASC TABLET) 5 Mg Tb, 1 TAB PO DAILY for 15 Days, #15 TAB 5 Refills Prov:BIENVENIDO ESCOBAR RESIDENT 11/13/24 Famotidine (PEPCID TABLET) 20 Mg Tb, 1 TAB PO BID for 30 Days, #60 TAB 0 Refills Prov:GRIS BURLESON MD 10/14/24 Alum & Mag Hydrox-Simethicone (Maalox Multi Symptom Maxi) Symp Max Laurie, 1 MAX PO TIDPRN PRN for 30 Days, #90 ML Prov:GRIS BURLESON MD 10/14/24 Metronidazole (Flagyl) 500 Mg Tab, 1 TAB PO BID for 7 Days, #14 TAB Prov:GRIS BURLESON MD 10/14/24 Polyethylene Glycol 3350 (Miralax) 17 Gm Pow, 17 GM PO DAILYPRN PRN for 30 Days, #30 POW Prov:GRIS BURLESON MD 10/14/24 Cefpodoxime Proxetil (Cefpodoxime Proxetil) 200 Mg Tab, 1 TAB PO BID for 7 Days, #14 TAB Prov:GRIS BURLESON MD 10/14/24 Information Source: Patient Mode of Arrival: Wheelchair Timing: Hours Duration: Since onset Prehospital treatment: None Quality: Aching, Burning Vomitus: Bilious Stool: Normal Severity: Moderate Recent: Other (Recent diagnosis of gallstones) Recent Hx of: None Pain Location: Epigastric Modifying Factors: Nothing Associated sign and symptoms: Nausea, Vomiting, Abdominal Pain Past Medical History PAST MEDICAL HISTORY: Asthma, Gallstones, High Lipids, HTN Surgical History: Denies all surgeries PICTURE COPYIST History: Denies all PICTURE COPYIST Hx Family History Family History: Family hx of HTN Social History Smoker: Cigarettes Alcohol: Denies ETOH Use Drugs: Methamphetamine Lives In: Home Constitutional: denies: chills, diaphoresis, fatigue, fever, malaise, sweats, weakness, others EENTM: denies: blurred vision, double vision, ear bleeding, ear discharge, ear drainage, ear pain, ear ringing, eye pain, eye redness, hearing loss, mouth pain, mouth swelling, nasal discharge, nose bleeding, nose congestion, nose pain, photophobia, tearing, throat pain, throat swelling, voice changes, others Respiratory: denies: cough, hemoptysis, orthopnea, SOB at rest, shortness of breath, SOB with excertion, stridor, wheezing, others Cardiovascular: denies: chest pain, dizzy spells, diaphoresis, Dyspnea on exertion, edema, irregular heart beat, left arm pain, lightheadedness, palpitations, PND, syncope, others Gastrointestinal: reports: abdominal pain, nausea, vomiting; denies: abdomen distended, blood streaked bowels, constipated, diarrhea, dysphagia, difficulty swallowing, hematemesis, melena, poor appetite, poor fluid intake, rectal bleeding, rectal pain, others Genitourinary: denies: abnormal vagina bleeding, burning, dyspareunia, dysuria, flank pain, frequency, hematuria, incontinence, pain, , vagina discharge, urgency, others Neurological: denies: dizziness, fainting, headache, left sided numbness, left sided weakness, numbness, paresthesia, pre-existing deficit, right sided numbness, right sided weakness, seizure, speech problems, tingling, tremors, weakness, others Musculoskeletal: denies: back pain, gout, joint pain, joint swelling, muscle pain, muscle stiffness, neck pain, others Integumetry: denies: bruises, change in color, change in hair/nails, dryness, laceration, lesions, lumps, rash, wounds, others Allergic/Immunocompromised: denies: Difficulty Healing, Frequent Infections, Hives, Itching, others Hematologic/Lymphatic: denies: anemia, blood clots, easy bleeding, easy bruising, swollen glands, others Endocrine: denies: excessive hunger, excessive sweating, excessive thirst, excessive urination, flushing, intolerance to cold, intolerance to heat, unexplained weight gain, unexplained weight loss, others Psychiatric: denies: anxiety, bipolar disorder, depression, hopeless, panic disorder, schizophrenia, sleepless, suicidal, others Physical Exam General Appearance: Moderate Distress HEENT: Normal ENT Inspection, Pharynx Normal, TMs Normal Neck: Full Range of Motion, Non-Tender, Normal, Normal Inspection Respiratory: Chest Non-Tender, Lungs Clear, No Accessory Muscle Use, No Respiratory Distress, Normal Breath Sounds Cardiovascular: No Edema, No JVD, No Murmur, No Gallop, Normal Peripheral Pulses, Regular Rate/Rhythm Breast Exam: Deferred Gastrointestinal: No Organomegaly, Non Tender, No Pulsatile Mass, Normal Bowel Sounds, Soft Genitalia: Deferred Pelvic: Deferred Rectal: Deferred Extremities: No calf tenderness, Normal capillary refill, Normal inspection, Normal range of motion, Non-tender, No pedal edema Musculoskeletal : Apperance: Normal Neurologic: Alert, archivist political history II-XII nml as Tested, No Motor Deficits, Normal Affect, Normal Mood, No Sensory Deficits Cerebellar Function: Normal Reflexes: Normal Skin: Dry, Normal Color, Warm Lymphatic: No Adenopathy EKG EKG : Pulse Rate (adult): 92 Mobile: LAD Hypertrophy: KRISTAN Was a procedure done? Was a procedure done?: No GI differential Dx Differential Diagnosis: Gastritis/PUD, Gastroenteritis, Inflammatory BD, Pancreatitis, Electrolyte Imbalance, Food Poisoning X-Ray, Labs, Meds, VS Vital Signs Date Time Temp Pulse Resp B/P (MAP) Pulse Ox O2 Delivery O2 Flow Rate FiO2 11/26/24 13:56 88 20 137/86 11/26/24 12:07 92 11/26/24 12:05 92 11/26/24 11:57 98.4 96 19 141/99 (113) 100 Lab Test 11/26/24 13:50 Range/Units White Blood Count 5.7 4.4-10.8 10^3/uL Red Blood Count 4.61 4.0-5.20 10^6/uL Hemoglobin 13.0 12.2-16.2 g/dL Hematocrit 39.7 36.0-46.0 % Mean Corpuscular Volume 86.2 80.0-100.0 fL Mean Corpuscular Hemoglobin 28.2 28.0-32.0 pg Mean Corpuscular Hemoglobin Concent 32.7 32.0-36.0 g/dL Red Cell Distribution Width 15.2 H 11.8-14.3 % Platelet Count 176 140-450 10^3/uL Mean Platelet Volume 9.9 6.9-10.8 fL Neutrophils (%) (Auto) 66.3 37.0-80.0 % Lymphocytes (%) (Auto) 25.9 10.0-50.0 % Monocytes (%) (Auto) 6.6 0.0-12.0 % Eosinophils (%) (Auto) 1.0 0.0-7.0 % Basophils (%) (Auto) 0.2 0.0-2.0 % Neutrophils # (Auto) 3.8 1.6-8.6 10 ^3/uL Lymphocytes # (Auto) 1.5 0.4-5.4 10 ^3/uL Monocytes # (Auto) 0.4 0-1.3 10 ^3/uL Eosinophils # (Auto) 0.1 0-0.8 10 ^3/uL Basophils # (Auto) 0 0-0.2 10 ^3/uL Nucleated Red Blood Cells 0.1 % Sodium Level Pending Potassium Level Pending Chloride Level Pending Carbon Dioxide Level Pending Anion Gap Pending Blood Urea Nitrogen Pending Creatinine Pending Glomerular Filtration Rate Calc Pending BUN/Creatinine Ratio Pending Serum Glucose Pending Calcium Level Pending Total Bilirubin Pending Aspartate Amino Transferase (AST) Pending Alanine Aminotransferase (ALT) Pending Alkaline Phosphatase Pending Total Protein Pending Albumin Pending Lipase Pending Current Medications Medications (Trade) Dose Ordered Sig/Bob Route Start Time Stop Time Status Last Admin Ondansetron HCl (Zofran) 4 mg ONCE ONCE IV 11/26/24 12:15 11/26/24 12:16 DC 11/26/24 13:56 Morphine Sulfate 4 mg ONCE ONCE IV 11/26/24 12:15 11/26/24 12:16 DC 11/26/24 13:56 Sodium Chloride 500 ml @ 500 mls/hr Q1H ONCE IVB 11/26/24 12:15 11/26/24 13:14 DC 11/26/24 13:56 Pantoprazole Sodium (Protonix) 40 mg ONCE ONCE IV 11/26/24 12:15 11/26/24 12:16 DC 11/26/24 13:56 PROCEDURE(s): GBUS - GALLBLADDER IMPRESSION: Findings suspicious for acute cholecystitis. IV Hep-Lock was established The patient was being given morphine 4 mg IV push The patient was given Zofran 4 mg IV push for the nausea The patient was given Protonix 40 mg IV push At this time the patient is being admitted to the hospitalist The CBC is within normal limits The hospitalist will follow up the rest of the patient's lab work The patient was being admitted at this time. Images Reviewed?: Images reviewed and evaluated by me Time of 1ST Reevaluation: 12:06 Reevaluation 1ST: Unchanged Patient Education/Counseling: Diagnosis, Treatment, Prognosis Family Education/Counseling: No Family Present Departure 1 Departure Time of Disposition: 12:06 Impression: Primary Impression: Intractable abdominal pain Additional Impression: Acute cholecystitis Disposition: ADMITTED INPATIENT Admit to: Med Surg Condition: Fair Critical Care Note Critical Care Time?: No Stability Stability form required: Yes Unstable for transfer: ED Physician Assesment (Clinical assesment) Heart Score Heart Score: Heart Score Response (Comments) Value History N/A 0 EKG N/A 0 Age N/A 0 Risk Factors N/A 0 Troponin N/A 0 Total 0 I personally scribed for RITIKA ROCHE MD ([email or web address]) on 11/26/24 at 14:04. Electronically submitted by Camron Loo ([email or web address]). RITIKA ROCHE MD Nov 26, 2024 12:07
--- NOTE | 2024-11-26 13:23 | DVH ---
INDICATION: pain TECHNIQUE: Multiple real-time sonographic images of the abdomen were obtained. COMPARISON: US GALLBLADDER on DOS: 11/06/24 FINDINGS: The liver is homogenous in echogenicity. The liver measures 14cm. No intrahepatic biliary ductal dilatation is noted. Gallbladder appears distended with multiple gallstones visualized. Gallbladder sludge is present. P ericholecystic fluid is noted. Gallbladder wall measures 3 mm. The right kidney measures 9cm. No hydronephrosis. The pancreas is not well visualized due to obscuration from bowel gas. The visualized portions of the IVC and aorta are grossly unremarkable. IMPRESSION: Findings suspicious for acute cholecystitis.
[2024-11-26] MEDS: PANTOPRAZOLE 40 MG/10 ML VIAL INJ IV ONE (13:56)
[2024-11-26] MEDS: SODIUM CHLORIDE 0.9% 500 ML IVB ONE (13:56)
[2024-11-26] MEDS: ONDANSETRON HCL 4 MG/2 ML VIAL IV ONE (13:56)
[2024-11-26] MEDS: MORPHINE SULFATE 4 MG/ML SYR/VIAL IV ONE (13:56)
[2024-11-26 14:16] LABS: Basophils # (auto) 0 10 ^3/uL (0-0.2); Basophils % (auto) 0.2 % (0.0-2.0); Eosinophils # (auto) 0.1 10 ^3/uL (0-0.8); Hematocrit 39.7 % (36.0-46.0); Lymphocytes # (auto) 1.5 10 ^3/uL (0.4-5.4); Lymphocytes % (auto) 25.9 % (10.0-50.0); Mean Corpuscular Hemoglobin 28.2 pg (28.0-32.0); Mean Corpuscular Hgb Conc. 32.7 g/dL (32.0-36.0); Mean Corpuscular Volume 86.2 fL (80.0-100.0); Monocytes # (auto) 0.4 10 ^3/uL (0-1.3); Monocytes % (auto) 6.6 % (0.0-12.0); Neutrophils # (auto) 3.8 10 ^3/uL (1.6-8.6); Neutrophils % (auto) 66.3 % (37.0-80.0); Nucleated Red Blood Cells % 0.1 %; Platelet Count (auto) 176 10^3/uL (140-450); Red Blood Cells 4.61 10^6/uL (4.0-5.20); Red Cell Distribution Width 15.2 % (11.8-14.3); White Blood Cell 5.7 10^3/uL (4.4-10.8)
[2024-11-26 14:57] LABS: Anion Gap 11 (5-15); Carbon Dioxide 27 mmol/L (20-31)
[2024-11-26 14:58] LABS: Calcium 10.3 mg/dL (8.7-10.4)
[2024-11-26 15:02] LABS: Glucose 106 mg/dL (74-106)
[2024-11-26 15:03] LABS: Alkaline Phosphatase 75 U/L (46-116)
[2024-11-26 15:04] LABS: Albumin 4.4 g/dL (3.2-4.8); Aspartate Aminotransferase 34 U/L (13-40)
[2024-11-26 15:05] LABS: Bilirubin, Total 0.5 mg/dL (0.2-1.0); Total Protein 8.1 g/dL (5.7-8.2)
[2024-11-26 15:08] LABS: BUN/Creatinine Ratio 14.5 (10.0-20.0)
[2024-11-26 15:09] LABS: Alanine Aminotransferase 19 U/L (7-40); Blood Urea Nitrogen 11 mg/dL (9-23); Chloride 98 mmol/L (98-107); Lipase 33 U/L (12-53); Potassium 2.8 mmol/L (3.5-5.1); Sodium 136 mmol/L (136-145)
--- NOTE | 2024-11-26 15:44 | DVHHP2 ---
History of Present Illness Reason for Visit: Epigastric pain History of Present Illness 49-year-old female past medical history hypertension asthma diagnosed with gallstones October 10, 2024 denies any surgical history chief complaint started having epigastric abdominal pain that started this morning. Patient states the pain has been sharp and has not let up. She does complain of nausea and vomiting with the pain. No chest pain no shortness with the breath no tearing sensation in her abdomen or chest. Patient feels his her gallstone when evaluating patient's labs and imaging normal saline was given morphine Zofran CBC was unremarkable CT scan of the abdomen pelvis shows acute cholecystitis. With these findings we will admit and ask for General surgery evaluation pain management NPO IV fluids and antibiotics Past Medical History Hypertension asthma gallstones diagnosed October 10, 2024 Past Surgical History Denies surgical history Family History Reviewed, non-contributory to the management of this case. Past Social History The patient lives at home, denies smoking, alcohol or illicit drugs abuse. Review of Systems Constitutional: No: Fever, Chills, Sweats, Weakness, Malaise, Other Eyes: No: Pain, Vision change, Conjunctivae inflammation, Eyelid inflammation, Other, Redness ENT: No: Ear pain, Ear discharge, Nose pain, Nose discharge, Nose congestion, Mouth pain, Mouth swelling, Throat pain, Throat swelling, Other Respiratory: No: Cough, Dry, Shortness of breath, SOB with excertion, Wheezing, Hemoptysis, Pleuritic Pain, Sputum, Wheezing, Other Cardiovascular: No: Chest Pain, Palpitations, Orthopnea, Paroxysmal Noc. Dyspnea, Edema, Lt Headedness, Other Gastrointestinal: Nausea, Vomiting, Abdominal Pain; No: Diarrhea, Constipation, Melena, Hematochezia, Other Genitourinary: No Dysuria, No Frequency, No Incontinence, No Hematuria, No Retention, No Other Musculoskeletal: No: other, neck pain, shoulder pain, arm pain, back pain, hand pain, leg pain, foot pain Skin: No: Rash, Lesions, Jaundice, Bruising, Other Neurological: No: Weakness, Numbness, Incoordination, Change in speech, Confusion, Seizures, Other Allergies: Coded Allergies: NO KNOWN ALLERGIES (Unverified , 01/06/23) Exam Vital Signs Vital Signs Date Time Temp Pulse Resp B/P (MAP) Pulse Ox O2 Delivery O2 Flow Rate FiO2 11/26/24 13:56 88 20 137/86 11/26/24 11:57 98.4 100 General Appearance: Alert, Oriented X3, Cooperative, Other (And pain) HEENT: Atraumatic, PERRLA, EOMI, Mucous membr. moist/pink Respiratory: Clear to auscultation, Normal air movement Cardiovascular: Regular rate, Normal S1, Normal S2, No murmurs Abdominal: Normal bowel sounds, Soft, No hepatospenomegaly, No masses, Other (Right upper quadrant guarding and rebound tenderness) Extremities: No clubbing, No cyanosis, No edema, Normal pulses, No tenderness/swelling Skin: No rashes, No breakdown, No significant lesion Neuro: Normal speech, Strength at 5/5 X4 ext, Normal tone, Sensation intact, Cranial nerves 3-12 NL, Other (In his wheelchair in pain) Psych/Mental Status: Mental status NL, Mood NL Labs/Xrays CT scan of the abdomen pelvis shows acute cholecystitis I reviewed labs, imaging CT scan abdomen pelvis, EKG and all diagnostic studies on this patient from ED records and the medical chart Labs Test 11/26/24 13:50 Range/Units White Blood Count 5.7 4.4-10.8 10^3/uL Red Blood Count 4.61 4.0-5.20 10^6/uL Hemoglobin 13.0 12.2-16.2 g/dL Hematocrit 39.7 36.0-46.0 % Mean Corpuscular Volume 86.2 80.0-100.0 fL Mean Corpuscular Hemoglobin 28.2 28.0-32.0 pg Mean Corpuscular Hemoglobin Concent 32.7 32.0-36.0 g/dL Red Cell Distribution Width 15.2 H 11.8-14.3 % Platelet Count 176 140-450 10^3/uL Mean Platelet Volume 9.9 6.9-10.8 fL Neutrophils (%) (Auto) 66.3 37.0-80.0 % Lymphocytes (%) (Auto) 25.9 10.0-50.0 % Monocytes (%) (Auto) 6.6 0.0-12.0 % Eosinophils (%) (Auto) 1.0 0.0-7.0 % Basophils (%) (Auto) 0.2 0.0-2.0 % Neutrophils # (Auto) 3.8 1.6-8.6 10 ^3/uL Lymphocytes # (Auto) 1.5 0.4-5.4 10 ^3/uL Monocytes # (Auto) 0.4 0-1.3 10 ^3/uL Eosinophils # (Auto) 0.1 0-0.8 10 ^3/uL Basophils # (Auto) 0 0-0.2 10 ^3/uL Nucleated Red Blood Cells 0.1 % Sodium Level 136 136-145 mmol/L Potassium Level 2.8 L 3.5-5.1 mmol/L Chloride Level 98 98-107 mmol/L Carbon Dioxide Level 27 20-31 mmol/L Anion Gap 11 5-15 Blood Urea Nitrogen 11 9-23 mg/dL Creatinine 0.76 0.550-1.02 mg/dL Glomerular Filtration Rate Calc 97 >90 mL/min BUN/Creatinine Ratio 14.5 10.0-20.0 Serum Glucose 106 74-106 mg/dL Calcium Level 10.3 8.7-10.4 mg/dL Total Bilirubin 0.5 0.2-1.0 mg/dL Aspartate Amino Transferase (AST) 34 13-40 U/L Alanine Aminotransferase (ALT) 19 7-40 U/L Alkaline Phosphatase 75 46-116 U/L Total Protein 8.1 5.7-8.2 g/dL Albumin 4.4 3.2-4.8 g/dL Lipase 33 12-53 U/L Assessment/Plan Assessment/Plan acute intractable abdominal pain likely from acute gallbladder infection found on ct scan ordered morphine as needed for pain ordered ceftriaxone and flagyl for now npo for now ordered ivf ordered protonix acute cholecystitis found on ct scan N.p.o. for now ordered Ceftriaxone and Flagyl ordered IV fluids ordered General surgery consult follow-up recs ordered Protonix ordered Type and screen, inr ordered Morphine and Zofran acute dehydration from vomiting ordered ivf chronic problems htn cont home medication asthma monitor for resp distress fen/ppx protonix ivf no dvt ppx since ambulatory scd plan admit to medicine general surgery consult and evaluation Plan discussed with: Patient Date of Service: Nov 26, 2024 Billing Provider: ANMOL LUND DNP Common Visit Codes: [id number] INP/OBS CARE (HIGH) ANMOL LUND DNP Nov 26, 2024 15:44
[2024-11-26] MEDS ORDERED: NITROGLYCERIN 0.4 MG SL TAB SL PRN (15:45)
[2024-11-26] MEDS ORDERED: DOCUSATE SOD 100 MG CAP PO PRN (15:45)
[2024-11-26] MEDS ORDERED: ONDANSETRON HCL 4 MG/2 ML VIAL IV PRN (15:45)
[2024-11-26] MEDS: SODIUM CHLORIDE 0.9% 1,000 ML IV SCH (15:54)
[2024-11-26] MEDS: cefTRIAXone 1GM/50ML D5W 50 ML IV ONE (15:58)
--- NOTE | 2024-11-26 16:53 | ECG ---
[facility] Test Date: 2024-11-26 Test Time: 12:05:02 Pat Name: LUIS FELIPE OLMEDO Department: ER Room: [address] [place] [address] Gender: F [employer]: PATRICK : 1975 Requested By: RITIKA ROCHE Order Number: [id number] Reading MD: Sebastián Mendes Measurements Intervals [place] Rate: 92 P: 65 VA: 201 QRS: 90 QRSD: 97 T: 26 QT: 392 QTc: 485 Interpretive Statements Sinus rhythm Borderline prolonged VA interval Consider left atrial enlargement Borderline right axis deviation Electronically Signed On 11-29-2024 15:48:35 PST by Sebastián Mendes Please click the below link to view image of tracing.
[2024-11-26 17:32] LABS: Phosphorus 3.7 mg/dL (2.4-5.1)
[2024-11-26 17:33] LABS: INR 0.99 (0.9-1.15); Prothrombin Time 10.5 sec (9.3-11.8)
[2024-11-26] MEDS: metroNIDAZOLE 500MG/100ML 100 ML IV ONE (18:59)
[2024-11-26] MEDS: POTASSIUM CHL 20MEQ/100ML 100 ML IV SCH (18:59)
--- NOTE | 2024-11-26 19:14 | DVH ---
CHEST RADIOGRAPH Indication: abd.pain Technique: Single frontal view of the chest was obtained COMPARISON: None FINDINGS: Lines and Tubes: None Lungs: Clear Pleura: No effusion. No pneumothorax. Cardiomediastinal contours: Unremarkable Bones: Unremarkable IMPRESSION: 1. No acute disease.
[2024-11-26] MEDS: metroNIDAZOLE 500MG/100ML 100 ML IV SCH (21:15)
[2024-11-26 23:20] VITALS: BP 137/71; PULSE 93; RESP 18; TEMP 98.2; O2SAT 99
[2024-11-26] MEDS: D5W/SOD CHL 0.45%/KCL 20MEQ 1,000 ML IV SCH (23:27)
[2024-11-27] VITALS (8 sets, daily range): BP systolic 103–146; BP diastolic 57–74; PULSE 85–102; RESP 17–20; TEMP 97.8–99.2; O2SAT 94–100
[2024-11-27] MEDS: POTASSIUM CHL 20MEQ/100ML 100 ML IV ONE (02:38)
[2024-11-27 06:33] LABS: Basophils # (auto) 0 10 ^3/uL (0-0.2); Basophils % (auto) 0.3 % (0.0-2.0); Eosinophils # (auto) 0.2 10 ^3/uL (0-0.8); Eosinophils % (auto) 3.1 % (0.0-7.0); Hemoglobin 11.6 g/dL (12.2-16.2); Lymphocytes # (auto) 1.6 10 ^3/uL (0.4-5.4); Lymphocytes % (auto) 32.3 % (10.0-50.0); Mean Corpuscular Hemoglobin 28.5 pg (28.0-32.0); Mean Corpuscular Volume 86.2 fL (80.0-100.0); Monocytes # (auto) 0.5 10 ^3/uL (0-1.3); Monocytes % (auto) 9.7 % (0.0-12.0); Neutrophils # (auto) 2.7 10 ^3/uL (1.6-8.6); Neutrophils % (auto) 54.6 % (37.0-80.0); Platelet Count (auto) 165 10^3/uL (140-450); Red Blood Cells 4.06 10^6/uL (4.0-5.20); Red Cell Distribution Width 15.6 % (11.8-14.3); White Blood Cell 4.9 10^3/uL (4.4-10.8)
[2024-11-27 06:52] LABS: Alanine Aminotransferase 14 U/L (7-40); Albumin 3.7 g/dL (3.2-4.8); Alkaline Phosphatase 72 U/L (46-116); Anion Gap 6 (5-15); Aspartate Aminotransferase 13 U/L (13-40); BUN/Creatinine Ratio 11.6 (10.0-20.0); Calcium 9.4 mg/dL (8.7-10.4); Carbon Dioxide 30 mmol/L (20-31); Chloride 101 mmol/L (98-107); Sodium 137 mmol/L (136-145)
[2024-11-27 06:53] LABS: Bilirubin, Total 0.5 mg/dL (0.2-1.0); Total Protein 7.2 g/dL (5.7-8.2)
[2024-11-27 06:55] LABS: Blood Urea Nitrogen 8 mg/dL (9-23); Glucose 110 mg/dL (74-106)
[2024-11-27 06:58] LABS: Potassium 2.4 mmol/L (3.5-5.1)
[2024-11-27] MEDS: POTASSIUM CHL 20MEQ/100ML 100 ML IV SCH (07:45)
[2024-11-27] MEDS: PANTOPRAZOLE 40 MG/10 ML VIAL INJ IV SCH (10:31)
[2024-11-27] MEDS: amLODIPine BESYLATE 5 MG TAB PO SCH (10:33)
[2024-11-27] MEDS: cefTRIAXone 1GM/50ML D5W 50 ML IV SCH (10:43)
--- NOTE | 2024-11-27 12:04 | DVHINCON2 ---
Date of service: Nov 27, 2024 Reason for Consultation cholelithiasis History of Present Illness HPI 49-year-old female diagnosed with gallstones October 10, 2024 denies any yang rgical history chief complaint started having epigastric abdominal pain associated with nausea that started yesterday. Home Meds Active Scripts Amlodipine Besylate (NORVASC TABLET) 5 Mg Tb, 1 TAB PO DAILY for 15 Days, #15 TAB 5 Refills Prov:BIENVENIDO ESCOBAR 11/13/24 Famotidine (PEPCID TABLET) 20 Mg Tb, 1 TAB PO BID for 30 Days, #60 TAB 0 Refills Prov:GRIS BURLESON MD 10/14/24 Alum & Mag Hydrox-Simethicone (Maalox Multi Symptom Maxi) Symp Max Laurie, 1 MAX PO TIDPRN PRN for 30 Days, #90 ML Prov:GRIS BURLESON MD 10/14/24 Metronidazole (Flagyl) 500 Mg Tab, 1 TAB PO BID for 7 Days, #14 TAB Prov:GRIS BURLESON MD 10/14/24 Polyethylene Glycol 3350 (Miralax) 17 Gm Pow, 17 GM PO DAILYPRN PRN for 30 Days, #30 POW Prov:GRIS BURLESON MD 10/14/24 Cefpodoxime Proxetil (Cefpodoxime Proxetil) 200 Mg Tab, 1 TAB PO BID for 7 Days, #14 TAB Prov:GRIS BURLESON MD 10/14/24 Chief Complaint of Abdominal/F: Abdominal pain Past Medical History Cardiac: No pertinent Hx Pulmonary: Asthma Central Nervous System: No pertinent Hx GI: No pertinent Hx Hemotology/Oncology: No pertinent Hx Hepatobiliary: No pertinent Hx Psychiatric: No pertinent Hx Musculoskeletal: No pertinent Hx Rheumotologic: No pertinent Hx Infectious Disease: No peritnent Hx ENT: No pertinent Hx Renal/: No pertinent Hx Endocrine: No pertinent Hx Dermatology: No pertinent Hx Others diagnosis of gallstones September 2024 Past Surgical History: No pertinent Hx Patient Family History: Cervical cancer G8 MOTHER, Onset:40's - 50 Chronic kidney disease G8 FATHER, Onset:40's - 50 Smoker: No Hx (Negative) Alocohol: None Drugs: None Lives with: With family Review of Systems Constitutional: No symptom reported Ears, Nose, & Throat: No symptom reported Eyes: No symptom reported Pulmonary/Respiratory: No symptom reported Cardiovascular: No symptom reported Gastrointestinal: Abdominal Pain Genitourinary: No symptom reported Musculoskeletal: No symptom reported Skin: No symptom reported Psychiatric: No symptom reported Endocrine: No symptom reported Hemotologic/Lymphatic: No symptom reported H&P Exam Vital Signs Vital Signs Date Time Temp Pulse Resp B/P (MAP) Pulse Ox O2 Delivery O2 Flow Rate FiO2 11/27/24 10:33 113/66 11/27/24 09:00 97.8 99 19 97 97.8 11/26/24 23:20 Room Air* 0 21 General Appeara: Well developed, Well nourished, Normal Appearance Nasal Exam: Normal inspection Pulmonary/Respiratory: Normal inspection Abdominal Pain Onset Location: Epigastric Rectal Exam: Deferred Tendon/ Neuro: Normal sensation VISITING NURSE Exam: Normal hearing, Normal speech, PERRL Neuro/Mental St: Alert, Oriented Appearance: Appropriate appearance Eye contact/ Speech: Cooperative, Good eye contact, Normal speech Skin Exam: Normal inspection, Normal color, Warm/dry Labs/Xrays Labs Test 11/27/24 06:05 11/26/24 13:50 Range/Units White Blood Count 4.9 4.4-10.8 10^3/uL Red Blood Count 4.06 4.0-5.20 10^6/uL Hemoglobin 11.6 L 12.2-16.2 g/dL Hematocrit 35.0 #L 36.0-46.0 % Mean Corpuscular Volume 86.2 80.0-100.0 fL Mean Corpuscular Hemoglobin 28.5 28.0-32.0 pg Mean Corpuscular Hemoglobin Concent 33.0 32.0-36.0 g/dL Red Cell Distribution Width 15.6 H 11.8-14.3 % Platelet Count 165 140-450 10^3/uL Mean Platelet Volume 9.6 6.9-10.8 fL Neutrophils (%) (Auto) 54.6 37.0-80.0 % Lymphocytes (%) (Auto) 32.3 10.0-50.0 % Monocytes (%) (Auto) 9.7 0.0-12.0 % Eosinophils (%) (Auto) 3.1 0.0-7.0 % Basophils (%) (Auto) 0.3 0.0-2.0 % Neutrophils # (Auto) 2.7 1.6-8.6 10 ^3/uL Lymphocytes # (Auto) 1.6 0.4-5.4 10 ^3/uL Monocytes # (Auto) 0.5 0-1.3 10 ^3/uL Eosinophils # (Auto) 0.2 0-0.8 10 ^3/uL Basophils # (Auto) 0 0-0.2 10 ^3/uL Nucleated Red Blood Cells 0.0 % Sodium Level 137 136-145 mmol/L Potassium Level 2.4 *L 3.5-5.1 mmol/L Chloride Level 101 98-107 mmol/L Carbon Dioxide Level 30 20-31 mmol/L Anion Gap 6 5-15 Blood Urea Nitrogen 8 L 9-23 mg/dL Creatinine 0.69 0.550-1.02 mg/dL Glomerular Filtration Rate Calc 108 >90 mL/min BUN/Creatinine Ratio 11.6 10.0-20.0 Serum Glucose 110 H 74-106 mg/dL Calcium Level 9.4 8.7-10.4 mg/dL Total Bilirubin 0.5 0.2-1.0 mg/dL Aspartate Amino Transferase (AST) 13 13-40 U/L Alanine Aminotransferase (ALT) 14 7-40 U/L Alkaline Phosphatase 72 46-116 U/L Total Protein 7.2 5.7-8.2 g/dL Albumin 3.7 3.2-4.8 g/dL Prothrombin Time 10.5 9.3-11.8 sec Prothrombin Time INR 0.99 0.9-1.15 Phosphorus Level 3.7 2.4-5.1 mg/dL Magnesium Level 2.0 1.6-2.6 mg/dL Lipase 33 12-53 U/L Assessment/Plan Plan no new complaint patient states minimal pain feels alot better, minimal abdominal tenderness, denies nausea or vomiting pending HIDA scan Plan discussed with: Patient, Other (Dr. Espinosa ) Visit Coding Surgery Date of Service if different f: Nov 27, 2024 Billing Provider: AGUEDA ESPINOSA MD Surgery Visit Codes: [id number] - INP CONSULT <55 MIN DEBBIE DELEON NP Nov 27, 2024 12:04
--- NOTE | 2024-11-27 12:30 | DVHPN2 ---
Reviewed: Care Plan, H&P, Labs, Medications, Previous Orders Changes from previous H/P or p: No Changes General: Per HPI Eyes: No Pain, No Vision change, No Conjunctivae inflammation, No Eyelid inflammation, No Other, No Redness ENT: No Ear pain, No Ear discharge, No Nose pain, No Nose discharge, No Nose congestion, No Mouth pain, No Mouth swelling, No Throat pain, No Throat swelling, No Other Cardiovascular: No Chest Pain, No Palpitations, No Orthopnea, No Paroxysmal Noc. Dyspnea, No Edema, No Lt Headedness, No Other Respiratory: No Cough, No Dry, No Shortness of breath, No SOB with excertion, No Wheezing, No Hemoptysis, No Pleuritic Pain, No Sputum, No Other Gastrointestinal: Nausea, Vomiting, Abdominal Pain; No Diarrhea, No Constipation, No Melena, No Hematochezia, No Other Genitourinary: No Dysuria, No Frequency, No Incontinence, No Hematuria, No Retention, No Other Musculoskeletal: No other, No neck pain, No shoulder pain, No arm pain, No back pain, No hand pain, No leg pain, No foot pain Skin: No Rash, No Lesions, No Jaundice, No Bruising, No Other Objective Vitals Vital Signs Date Time Temp Pulse Resp B/P (MAP) Pulse Ox O2 Delivery O2 Flow Rate FiO2 11/27/24 12:23 99.1 90 19 104/57 (73) 97 99.1 11/26/24 23:20 Room Air* 0 21 Intake/Output Intake and Output 11/27/24 07:00 Intake Total 520 ml Balance 520 ml Intake Oral 0 ml IV Total 520 ml # Voids 1 General Appearance: Alert, Oriented X3, Cooperative Cardiovascular: Regular rate, Normal S1, Normal S2 Abdomen: Normal bowel sounds Extremities: No cyanosis Neuro: Normal speech Medications Current Medications Medications Dose Ordered Sig/Bob Route Start Time Stop Time Status Last Admin Dose Admin Ondansetron HCl 4 mg Q4HP PRN IV 11/26/24 15:45 Docusate Sodium 100 mg BIDPRN PRN PO 11/26/24 15:45 Morphine Sulfate 2 mg Q4HPRN PRN IV 11/26/24 15:45 Nitroglycerin 0.4 mg Q5MINP PRN SL 11/26/24 15:45 Ceftriaxone Sodium 50 ml @ 100 mls/hr DAILY@09 IV 11/27/24 09:00 11/27/24 10:43 100 MLS/HR Metronidazole 100 ml @ 100 mls/hr Q8HR IV 11/26/24 22:00 11/27/24 05:08 100 MLS/HR Amlodipine Besylate 5 mg DAILY PO 11/27/24 10:00 11/27/24 10:33 5 MG Pantoprazole Sodium 40 mg DAILY IV 11/27/24 10:00 11/27/24 10:31 40 MG Potassium Chloride/Dextrose/ Sod Cl 1,000 ml @ 120 mls/hr Q8H20M IV 11/26/24 18:45 11/27/24 04:55 120 MLS/HR Potassium Chloride 100 ml @ 50 mls/hr Q2H IV 11/27/24 07:45 11/27/24 13:44 Laboratory Results Laboratory Tests 11/27/24 06:05 Chemistry Test 11/26/24 13:50 11/27/24 06:05 Albumin 4.4 g/dL (3.2-4.8) 3.7 g/dL (3.2-4.8) Calcium Level 10.3 mg/dL (8.7-10.4) 9.4 mg/dL (8.7-10.4) Magnesium Level 2.0 mg/dL (1.6-2.6) Phosphorus Level 3.7 mg/dL (2.4-5.1) Total Protein 8.1 g/dL (5.7-8.2) 7.2 g/dL (5.7-8.2) Coagulation Test 11/26/24 13:50 Prothrombin Time 10.5 sec (9.3-11.8) Prothrombin Time INR 0.99 (0.9-1.15) Lipid panel Test 11/26/24 13:50 Lipase 33 U/L (12-53) LFT Test 11/26/24 13:50 11/27/24 06:05 Alanine Aminotransferase (ALT) 19 U/L (7-40) 14 U/L (7-40) Alkaline Phosphatase 75 U/L (46-116) 72 U/L (46-116) Aspartate Amino Transferase (AST) 34 U/L (13-40) 13 U/L (13-40) Total Bilirubin 0.5 mg/dL (0.2-1.0) 0.5 mg/dL (0.2-1.0) Labs and/or images reviewed: Labs reviewed by me, Image(s) reviewed by me Assessment/Plan Assessment/Plan 49-year-old female past medical history hypertension asthma diagnosed with gallstones October 10, 2024 denies any surgical history chief complaint started having epigastric abdominal pain that started this morning. Patient states the pain has been sharp and has not let up. She does complain of nausea and vomiting with the pain. No chest pain no shortness with the breath no tearing sensation in her abdomen or chest. Patient feels his her gallstone when evaluating patient's labs and imaging normal saline was given morphine Zofran CBC was unremarkable CT scan of the abdomen pelvis shows acute cholecystitis. With these findings we will admit and ask for General surgery evaluation pain management NPO IV fluids and antibiotics acute intractable abdominal pain likely from acute gallbladder infection acute cholecystitis acute dehydration from vomiting ordered ivf chronic problems htn cont home medication asthma monitor for resp distress 11/27/2024: pending HIDA scan. Surgery on board. discussed with pt Plan discussed with: Patient Date of Service: Nov 27, 2024 Billing Provider: ELLI MUNIZ DO Common Visit Codes: [id number] INP/OBS CARE(HIGH) ELLI MUNIZ DO Nov 27, 2024 12:30
--- NOTE | 2024-11-27 13:02 | ECG ---
[facility] Test Date: 2024-11-27 Test Time: 07:30:20 Pat Name: LUIS FELIPE OLMEDO Department: Respiratoy Room: [address] [place] [address] 6 Gender: F Clinical Consultant: : 1975 Requested By: EVA OQUENDO Order Number: [id number] Reading MD: Mookie Salgado Measurements Intervals [place] Rate: 98 P: 39 MN: 185 QRS: 39 QRSD: 99 T: 36 QT: 376 QTc: 481 Interpretive Statements Sinus rhythm Borderline T abnormalities, anterior leads Baseline wander in lead(s) V6 Electronically Signed On 11-30-2024 10:23:25 PST by Mookie Salgado Please click the below link to view image of tracing.
--- NOTE | 2024-11-27 13:08 | DVH ---
Procedure: NM NM HIDA SCAN Exam Date: 11/27/2024 08:37 AM Clinical History: r/o cholecystitis Comparison Study: Ultrasound dated 11/26/2024 Technique: Following the intravenous administration of 5.2 mCi of technetium 99m labeled Choletec mul tiple planar abdominal planar images were obtained in anterior projection in 5 minute intervals for 6 0 minutes . 4 hour delay anterior and right lateral views were obtained. Findings: The liver appears grossly normal in size. There is no abnormal persistence of the cardiac or blood po ol activity. Gallbladder is not seen throughout the exam. Radiotracer activity can be seen in the sma ll bowel within the 1st 15 minutes of the study confirming CBD patency. Impression: 1. Findings compatible with cystic duct obstruction.
--- NOTE | 2024-11-27 14:25 | ECG ---
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
[2024-11-28] VITALS (8 sets, daily range): BP systolic 98–140; BP diastolic 48–84; PULSE 65–93; RESP 17–20; TEMP 98–99.5; O2SAT 96–100
--- NOTE | 2024-11-28 09:47 | DVHPN2 ---
Progress Note Date Seen: Nov 28, 2024 Medical Necessity Reason Pt with a Central, PICC or Fol: No Objective vital signs Vital Sign Date Time Temp Pulse Resp B/P (MAP) Pulse Ox O2 Delivery O2 Flow Rate FiO2 11/28/24 09:22 112/60 11/28/24 08:00 Room Air* 0 21 11/28/24 05:00 98.7 86 20 97 98.7 Total Intake and Output 11/27/24 11/27/24 11/28/24 15:00 23:00 07:00 Intake Total 875 ml 1560 ml Balance 875 ml 1560 ml medications Current Medications Medications Dose Ordered Sig/Bob Route Start Time Stop Time Status Last Admin Dose Admin Ondansetron HCl 4 mg Q4HP PRN IV 11/26/24 15:45 Docusate Sodium 100 mg BIDPRN PRN PO 11/26/24 15:45 Morphine Sulfate 2 mg Q4HPRN PRN IV 11/26/24 15:45 Nitroglycerin 0.4 mg Q5MINP PRN SL 11/26/24 15:45 Ceftriaxone Sodium 50 ml @ 100 mls/hr DAILY@09 IV 11/27/24 09:00 11/28/24 09:22 100 MLS/HR Metronidazole 100 ml @ 100 mls/hr Q8HR IV 11/26/24 22:00 11/28/24 06:09 100 MLS/HR Amlodipine Besylate 5 mg DAILY PO 11/27/24 10:00 11/27/24 10:33 5 MG Pantoprazole Sodium 40 mg DAILY IV 11/27/24 10:00 11/28/24 09:22 40 MG Potassium Chloride/Dextrose/ Sod Cl 1,000 ml @ 120 mls/hr Q8H20M IV 11/26/24 18:45 11/27/24 04:55 120 MLS/HR laboratory and microbiology Laboratory Tests 11/27/24 13:08 11/27/24 06:05 Test 11/27/24 06:05 Range/Units Serum Glucose 110 H 74-106 mg/dL Problem List/Assessment/Plan Problem List/Assessment/Plan 11/28/24 hida SCAN POSITIVE, WILL PROCEED WITH CHOLECYSTECTOMY ONCE POTASSIUM CORRECTED Plan discussed with: AGUEDA Zimmer MD Nov 28, 2024 09:47
[2024-11-28] MEDS ORDERED: POTASSIUM CHL 20MEQ/100ML 100 ML IV ONE (10:53)
[2024-11-28 14:53] LABS: Calcium 9.3 mg/dL (8.7-10.4); Chloride 104 mmol/L (98-107); Potassium 3.5 mmol/L (3.5-5.1); Sodium 139 mmol/L (136-145)
[2024-11-28 14:54] LABS: Anion Gap 7 (5-15); Carbon Dioxide 28 mmol/L (20-31)
[2024-11-28 14:59] LABS: Glucose 89 mg/dL (74-106)
[2024-11-28 15:00] LABS: Blood Urea Nitrogen 8 mg/dL (9-23)
[2024-11-28] MEDS: POTASSIUM CHL 20MEQ/100ML 100 ML IV SCH ×2 (16:41→20:30)
--- NOTE | 2024-11-28 20:32 | DVHINCON2 ---
Date of service: Nov 27, [address] Sanket Carey Reason for Consultation Persistent hypoK History of Present Illness Abdiel Ohara is a 49-year-old F with a Past Medical History pertinent for Hypertension, Asthma and gallstones diagnosed in October 10, 2024 who presented to the hospital with complaint of epigastric abdominal pain. Patient also endorsed nausea and vomiting with the pain. CT scan of the abdomen pelvis showed acute cholecystitis. Patient was admitted for further evaluation, surgical consulted. Currently pending HIDA scan. I was asked to consult for persistent hypokalemia. Allergies: Coded Allergies: NO KNOWN ALLERGIES (Unverified , 01/06/23) Home Meds Active Scripts Amlodipine Besylate (NORVASC TABLET) 5 Mg Tb, 1 TAB PO DAILY for 15 Days, #15 TAB 5 Refills Prov:BIENVENIDO ESCOBAR 11/13/24 Famotidine (PEPCID TABLET) 20 Mg Tb, 1 TAB PO BID for 30 Days, #60 TAB 0 Refills Prov:GRIS BURLESON MD 10/14/24 Alum & Mag Hydrox-Simethicone (Maalox Multi Symptom Maxi) Symp Max Laurie, 1 MAX PO TIDPRN PRN for 30 Days, #90 ML Prov:GRIS BURLESON MD 10/14/24 Metronidazole (Flagyl) 500 Mg Tab, 1 TAB PO BID for 7 Days, #14 TAB Prov:GRIS BURLESON MD 10/14/24 Polyethylene Glycol 3350 (Miralax) 17 Gm Pow, 17 GM PO DAILYPRN PRN for 30 Days, #30 POW Prov:GRIS BURLESON MD 10/14/24 Cefpodoxime Proxetil (Cefpodoxime Proxetil) 200 Mg Tab, 1 TAB PO BID for 7 Days, #14 TAB Prov:GRIS BURLESON MD 10/14/24 Current Medications Current Medications Medications (Trade) Dose Ordered Sig/Bob Route PRN Reason Start Time Stop Time Status Last Admin Potassium Chloride 100 ml @ 50 mls/hr Q2H IV 11/28/24 12:30 11/28/24 16:29 DC 11/28/24 20:35 Potassium Chloride 100 ml @ 50 mls/hr Q2H IV 11/28/24 20:30 11/28/24 22:29 Family History: Cervical cancer G8 MOTHER, Onset:40's - 50 Chronic kidney disease G8 FATHER, Onset:40's - 50 Review of Systems Constitutional: No: Fever, Chills, Sweats, Weakness, Malaise, Other Respiratory: No: Cough, Dry, Shortness of breath, SOB with excertion, Wheezing, Hemoptysis, Pleuritic Pain, Sputum, Wheezing, Other Cardiovascular: No: Chest Pain, Palpitations, Orthopnea, Paroxysmal Noc. Dyspnea, Edema, Lt Headedness, Other Gastrointestinal: Nausea, Vomiting, Abdominal Pain; No: Diarrhea, Constipation, Melena, Hematochezia, Other All other systems reviewed and negative unless otherwise noted in HPI. H&P Exam Vital Signs/I&O Vital Sign Date Time Temp Pulse Resp B/P (MAP) Pulse Ox O2 Delivery O2 Flow Rate FiO2 11/28/24 21:00 98.0 89 17 134/84 (101) 96 98.0 11/28/24 08:00 Room Air* 0 21 Intake and Output 11/27/24 11/28/24 18:59 06:59 Intake Total 875 ml 1560 ml Balance 875 ml 1560 ml Intake Oral 775 ml 680 ml IV Total 100 ml 880 ml # Voids 3 2 # Bowel Movements 1 Physical Exam Vitals and nursing notes reviewed. General Appearance: Alert, Oriented X3, Cooperative, Other (And pain) HEENT: Atraumatic, PERRLA, EOMI, Mucous membr. moist/pink Respiratory: Clear to auscultation, Normal air movement Cardiovascular: Regular rate, Normal S1, Normal S2, No murmurs Abdominal: Normal bowel sounds, Soft, No hepatospenomegaly, No masses, Other (Right upper quadrant guarding and rebound tenderness) Extremities: No clubbing, No cyanosis, No edema, Normal pulses, No tenderness/swelling Skin: No rashes, No breakdown, No significant lesion Neuro: Normal speech, Strength at 5/5 X4 ext, Normal tone, Sensation intact, Cranial nerves 3-12 NL Psych/Mental Status: Mental status NL, Mood NL Labs/Diagnostic Data Labs/Diagnostic Data Laboratory Tests Test 11/28/24 14:21 11/27/24 13:08 11/27/24 06:05 11/26/24 13:50 Range/Units Sodium Level 139 137 136 136-145 mmol/L Potassium Level 3.5 2.8 L 2.4 *L 2.8 L 3.5-5.1 mmol/L Chloride Level 104 101 98 98-107 mmol/L Carbon Dioxide Level 28 30 27 20-31 mmol/L Anion Gap 7 6 11 5-15 Blood Urea Nitrogen 8 L 8 L 11 9-23 mg/dL Creatinine 0.73 0.69 0.76 0.550-1.02 mg/dL Glomerular Filtration Rate Calc 102 108 97 >90 mL/min BUN/Creatinine Ratio 11.0 11.6 14.5 10.0-20.0 Serum Glucose 89 110 H 106 74-106 mg/dL Calcium Level 9.3 9.4 10.3 8.7-10.4 mg/dL White Blood Count 4.9 5.7 4.4-10.8 10^3/uL Red Blood Count 4.06 4.61 4.0-5.20 10^6/uL Hemoglobin 11.6 L 13.0 12.2-16.2 g/dL Hematocrit 35.0 #L 39.7 36.0-46.0 % Mean Corpuscular Volume 86.2 86.2 80.0-100.0 fL Mean Corpuscular Hemoglobin 28.5 28.2 28.0-32.0 pg Mean Corpuscular Hemoglobin Concent 33.0 32.7 32.0-36.0 g/dL Red Cell Distribution Width 15.6 H 15.2 H 11.8-14.3 % Platelet Count 165 176 140-450 10^3/uL Mean Platelet Volume 9.6 9.9 6.9-10.8 fL Neutrophils (%) (Auto) 54.6 66.3 37.0-80.0 % Lymphocytes (%) (Auto) 32.3 25.9 10.0-50.0 % Monocytes (%) (Auto) 9.7 6.6 0.0-12.0 % Eosinophils (%) (Auto) 3.1 1.0 0.0-7.0 % Basophils (%) (Auto) 0.3 0.2 0.0-2.0 % Neutrophils # (Auto) 2.7 3.8 1.6-8.6 10 ^3/uL Lymphocytes # (Auto) 1.6 1.5 0.4-5.4 10 ^3/uL Monocytes # (Auto) 0.5 0.4 0-1.3 10 ^3/uL Eosinophils # (Auto) 0.2 0.1 0-0.8 10 ^3/uL Basophils # (Auto) 0 0 0-0.2 10 ^3/uL Nucleated Red Blood Cells 0.0 0.1 % Total Bilirubin 0.5 0.5 0.2-1.0 mg/dL Aspartate Amino Transferase (AST) 13 34 13-40 U/L Alanine Aminotransferase (ALT) 14 19 7-40 U/L Alkaline Phosphatase 72 75 46-116 U/L Total Protein 7.2 8.1 5.7-8.2 g/dL Albumin 3.7 4.4 3.2-4.8 g/dL Prothrombin Time 10.5 9.3-11.8 sec Prothrombin Time INR 0.99 0.9-1.15 Phosphorus Level 3.7 2.4-5.1 mg/dL Magnesium Level 2.0 1.6-2.6 mg/dL Lipase 33 12-53 U/L Assessment Acute intractable abdominal pain likely from acute gallbladder infection Acute cholecystitis Acute dehydration from vomiting Hypokalemia Plan/Recommendation Agreement with your ongoing assessment and plan of care. Surgical consult. Daily lab monitoring to include electrolytes. Electrolyte replacement prn. IVFs. IV antibiotics with Ceftriaxone and Flagyl. Pain management prn. Protonix. Antiemetics with Zofran. Additional plan as per the hospital course. Plan discussed with: Patient, Other (RN) KAYLEEN HERNANDEZ DO Nov 28, 2024 20:31
--- NOTE | 2024-11-28 20:56 | DVHPN2 ---
Reviewed: Care Plan, H&P, Labs, Medications, Previous Orders Changes from previous H/P or p: No Changes General: Per HPI Eyes: No Pain, No Vision change, No Conjunctivae inflammation, No Eyelid inflammation, No Other, No Redness ENT: No Ear pain, No Ear discharge, No Nose pain, No Nose discharge, No Nose congestion, No Mouth pain, No Mouth swelling, No Throat pain, No Throat swelling, No Other Cardiovascular: No Chest Pain, No Palpitations, No Orthopnea, No Paroxysmal Noc. Dyspnea, No Edema, No Lt Headedness, No Other Respiratory: No Cough, No Dry, No Shortness of breath, No SOB with excertion, No Wheezing, No Hemoptysis, No Pleuritic Pain, No Sputum, No Other Gastrointestinal: Nausea, Vomiting, Abdominal Pain; No Diarrhea, No Constipation, No Melena, No Hematochezia, No Other Genitourinary: No Dysuria, No Frequency, No Incontinence, No Hematuria, No Retention, No Other Musculoskeletal: No other, No neck pain, No shoulder pain, No arm pain, No back pain, No hand pain, No leg pain, No foot pain Skin: No Rash, No Lesions, No Jaundice, No Bruising, No Other Objective Vitals Vital Signs Date Time Temp Pulse Resp B/P (MAP) Pulse Ox O2 Delivery O2 Flow Rate FiO2 11/28/24 17:00 98.8 86 19 140/63 (88) 100 98.8 11/28/24 08:00 Room Air* 0 21 Intake/Output Intake and Output 11/28/24 07:00 Intake Total 2435 ml Balance 2435 ml Intake Oral 1455 ml IV Total 980 ml # Voids 5 # Bowel Movements 1 General Appearance: Alert, Oriented X3, Cooperative Cardiovascular: Regular rate, Normal S1, Normal S2 Abdomen: Normal bowel sounds Extremities: No cyanosis Neuro: Normal speech Medications Current Medications Medications Dose Ordered Sig/Bob Route Start Time Stop Time Status Last Admin Dose Admin Ondansetron HCl 4 mg Q4HP PRN IV 11/26/24 15:45 Docusate Sodium 100 mg BIDPRN PRN PO 11/26/24 15:45 Morphine Sulfate 2 mg Q4HPRN PRN IV 11/26/24 15:45 Nitroglycerin 0.4 mg Q5MINP PRN SL 11/26/24 15:45 Ceftriaxone Sodium 50 ml @ 100 mls/hr DAILY@09 IV 11/27/24 09:00 11/28/24 09:22 100 MLS/HR Metronidazole 100 ml @ 100 mls/hr Q8HR IV 11/26/24 22:00 11/28/24 15:14 100 MLS/HR Amlodipine Besylate 5 mg DAILY PO 11/27/24 10:00 11/27/24 10:33 5 MG Pantoprazole Sodium 40 mg DAILY IV 11/27/24 10:00 11/28/24 09:22 40 MG Potassium Chloride/Dextrose/ Sod Cl 1,000 ml @ 120 mls/hr Q8H20M IV 11/26/24 18:45 11/28/24 12:25 120 MLS/HR Potassium Chloride 100 ml @ 50 mls/hr Q2H IV 11/28/24 20:30 11/28/24 22:29 Laboratory Results Laboratory Tests 11/27/24 06:05 11/28/24 14:21 Chemistry Test 11/28/24 14:21 Calcium Level 9.3 mg/dL (8.7-10.4) Assessment/Plan Assessment/Plan 49-year-old female past medical history hypertension asthma diagnosed with gallstones October 10, 2024 denies any surgical history chief complaint started having epigastric abdominal pain that started this morning. Patient states the pain has been sharp and has not let up. She does complain of nausea and vomiting with the pain. No chest pain no shortness with the breath no tearing sensation in her abdomen or chest. Patient feels his her gallstone when evaluating patient's labs and imaging normal saline was given morphine Zofran CBC was unremarkable CT scan of the abdomen pelvis shows acute cholecystitis. With these findings we will admit and ask for General surgery evaluation pain management NPO IV fluids and antibiotics acute intractable abdominal pain likely from acute gallbladder infection acute cholecystitis acute dehydration from vomiting ordered ivf chronic problems htn cont home medication asthma monitor for resp distress 11/27/2024: pending HIDA scan. Surgery on board. discussed with pt 11/28/2024: potassium low. replace to keep above 3.5. Pt to be re-evaluated by surgery for cholecystectomy Plan discussed with: Patient My Orders Orders - ELLI MUNIZ DO Procedure Category Date Status Time Insert Midline ORDERS 11/28/24 Transmitted 11:30 Potassium Chl PHA 11/28/24 In Process 20meq/100ml 20:30 Date of Service: Nov 28, 2024 Billing Provider: ELLI MUNIZ DO Common Visit Codes: [id number] INP/OBS CARE(HIGH) ELLI MUNIZ DO Nov 28, 2024 20:56
--- NOTE | 2024-11-28 22:31 | DVHPN2 ---
Progress Note - Dictate Date Seen: Nov 28, 2024 Medical Necessity Reason Pt with a Central, PICC or Fol: No Subjective Patient was seen and evaluated in follow up. No acute events overnight. Patient complains of continued abdominal pain. K has improved to 3.5. HIDA scan was positive. vital signs Vital Sign Date Time Temp Pulse Resp B/P (MAP) Pulse Ox O2 Delivery O2 Flow Rate FiO2 11/28/24 17:00 98.8 86 19 140/63 (88) 100 98.8 11/28/24 08:00 Room Air* 0 21 Total Intake and Output 11/27/24 11/27/24 11/28/24 15:00 23:00 07:00 Intake Total 875 ml 1560 ml Balance 875 ml 1560 ml medications Current Medications Medications Dose Ordered Sig/Bob Route Start Time Stop Time Status Last Admin Dose Admin Ondansetron HCl 4 mg Q4HP PRN IV 11/26/24 15:45 Docusate Sodium 100 mg BIDPRN PRN PO 11/26/24 15:45 Morphine Sulfate 2 mg Q4HPRN PRN IV 11/26/24 15:45 Nitroglycerin 0.4 mg Q5MINP PRN SL 11/26/24 15:45 Ceftriaxone Sodium 50 ml @ 100 mls/hr DAILY@09 IV 11/27/24 09:00 11/28/24 09:22 100 MLS/HR Metronidazole 100 ml @ 100 mls/hr Q8HR IV 11/26/24 22:00 11/28/24 15:14 100 MLS/HR Amlodipine Besylate 5 mg DAILY PO 11/27/24 10:00 11/27/24 10:33 5 MG Pantoprazole Sodium 40 mg DAILY IV 11/27/24 10:00 11/28/24 09:22 40 MG Potassium Chloride/Dextrose/ Sod Cl 1,000 ml @ 120 mls/hr Q8H20M IV 11/26/24 18:45 11/27/24 04:55 120 MLS/HR objective Vitals and nursing notes reviewed. General Appearance: Alert, Oriented X3, Cooperative, Other (And pain) HEENT: Atraumatic, PERRLA, EOMI, Mucous membr. moist/pink Respiratory: Clear to auscultation, Normal air movement Cardiovascular: Regular rate, Normal S1, Normal S2, No murmurs Abdominal: Normal bowel sounds, Soft, RUQ abdominal tenderness Extremities: No clubbing, No cyanosis, No edema, Normal pulses, No tenderness/swelling Skin: No rashes, No breakdown, No significant lesion Neuro: Normal speech, Strength at 5/5 X4 ext, Normal tone, Sensation intact, Cranial nerves 3-12 NL Psych/Mental Status: Mental status NL, Mood NL laboratory and microbiology Laboratory Tests 11/28/24 14:21 11/27/24 06:05 Test 11/28/24 14:21 Range/Units Serum Glucose 89 74-106 mg/dL Problem List Acute intractable abdominal pain likely from acute gallbladder infection Acute cholecystitis Acute dehydration from vomiting Hypokalemia Assessment/Plan Agree with current supportive medical care. Planned for cholecystectomy per Dr. Espinosa. Daily lab monitoring; electrolyte replacement prn. IVFs with Potassium chloride/dextrose/Sod Cl at 120 mL/hr. IV antibiotics with Ceftriaxone and Flagyl. Protonix 40 mg IV daily. Pain management prn. Antiemetics with Zofran. Diet: NPO. Additional plan as per the hospital course. Plan discussed with: Other (RN) KAYLEEN HERNANDEZ DO Nov 28, 2024 17:54
[2024-11-29] VITALS (8 sets, daily range): BP systolic 112–132; BP diastolic 47–76; PULSE 71–88; RESP 16–20; TEMP 97.5–98.3; O2SAT 97–99
[2024-11-29 08:14] LABS: Basophils # (auto) 0 10 ^3/uL (0-0.2); Basophils % (auto) 0.4 % (0.0-2.0); Eosinophils # (auto) 0.3 10 ^3/uL (0-0.8); Eosinophils % (auto) 5.8 % (0.0-7.0); Hematocrit 33.8 % (36.0-46.0); Lymphocytes # (auto) 2.4 10 ^3/uL (0.4-5.4); Lymphocytes % (auto) 49.7 % (10.0-50.0); Mean Corpuscular Hemoglobin 28.1 pg (28.0-32.0); Mean Corpuscular Hgb Conc. 32.5 g/dL (32.0-36.0); Mean Corpuscular Volume 86.5 fL (80.0-100.0); Monocytes # (auto) 0.5 10 ^3/uL (0-1.3); Monocytes % (auto) 10.4 % (0.0-12.0); Neutrophils # (auto) 1.6 10 ^3/uL (1.6-8.6); Neutrophils % (auto) 33.7 % (37.0-80.0); Nucleated Red Blood Cells % 0.1 %; Platelet Count (auto) 176 10^3/uL (140-450); Red Cell Distribution Width 15.5 % (11.8-14.3); White Blood Cell 4.8 10^3/uL (4.4-10.8)
[2024-11-29 08:23] LABS: Alanine Aminotransferase 12 U/L (7-40); Albumin 3.7 g/dL (3.2-4.8); Alkaline Phosphatase 60 U/L (46-116); Anion Gap 6 (5-15); BUN/Creatinine Ratio 10.8 (10.0-20.0); Bilirubin, Total 0.3 mg/dL (0.2-1.0); Calcium 9.3 mg/dL (8.7-10.4); Carbon Dioxide 28 mmol/L (20-31); Chloride 107 mmol/L (98-107); Glucose 84 mg/dL (74-106); Sodium 141 mmol/L (136-145); Total Protein 6.7 g/dL (5.7-8.2)
[2024-11-29 08:53] LABS: Aspartate Aminotransferase 13 U/L (13-40); Blood Urea Nitrogen 7 mg/dL (9-23); Potassium 2.9 mmol/L (3.5-5.1)
--- NOTE | 2024-11-29 13:00 | DVHPN2 ---
Reviewed: Care Plan, H&P, Labs, Medications, Previous Orders Changes from previous H/P or p: No Changes General: Per HPI Eyes: No Pain, No Vision change, No Conjunctivae inflammation, No Eyelid inflammation, No Other, No Redness ENT: No Ear pain, No Ear discharge, No Nose pain, No Nose discharge, No Nose congestion, No Mouth pain, No Mouth swelling, No Throat pain, No Throat swelling, No Other Cardiovascular: No Chest Pain, No Palpitations, No Orthopnea, No Paroxysmal Noc. Dyspnea, No Edema, No Lt Headedness, No Other Respiratory: No Cough, No Dry, No Shortness of breath, No SOB with excertion, No Wheezing, No Hemoptysis, No Pleuritic Pain, No Sputum, No Other Gastrointestinal: Nausea, Vomiting, Abdominal Pain; No Diarrhea, No Constipation, No Melena, No Hematochezia, No Other Genitourinary: No Dysuria, No Frequency, No Incontinence, No Hematuria, No Retention, No Other Musculoskeletal: No other, No neck pain, No shoulder pain, No arm pain, No back pain, No hand pain, No leg pain, No foot pain Skin: No Rash, No Lesions, No Jaundice, No Bruising, No Other Objective Vitals Vital Signs Date Time Temp Pulse Resp B/P (MAP) Pulse Ox O2 Delivery O2 Flow Rate FiO2 11/29/24 09:59 132/76 11/29/24 09:00 98.3 82 16 98 98.3 11/29/24 08:00 Room Air* 0 21 Intake/Output Intake and Output 11/29/24 07:00 Intake Total 1814 ml Balance 1814 ml Intake Oral 664 ml IV Total 1150 ml # Voids 6 # Bowel Movements 2 General Appearance: Alert, Oriented X3, Cooperative Cardiovascular: Regular rate, Normal S1, Normal S2 Abdomen: Normal bowel sounds Extremities: No cyanosis Neuro: Normal speech Medications Current Medications Medications Dose Ordered Sig/Bob Route Start Time Stop Time Status Last Admin Dose Admin Ondansetron HCl 4 mg Q4HP PRN IV 11/26/24 15:45 Docusate Sodium 100 mg BIDPRN PRN PO 11/26/24 15:45 Morphine Sulfate 2 mg Q4HPRN PRN IV 11/26/24 15:45 Nitroglycerin 0.4 mg Q5MINP PRN SL 11/26/24 15:45 Ceftriaxone Sodium 50 ml @ 100 mls/hr DAILY@09 IV 11/27/24 09:00 11/29/24 08:14 100 MLS/HR Metronidazole 100 ml @ 100 mls/hr Q8HR IV 11/26/24 22:00 11/29/24 05:46 100 MLS/HR Amlodipine Besylate 5 mg DAILY PO 11/27/24 10:00 11/29/24 09:59 5 MG Pantoprazole Sodium 40 mg DAILY IV 11/27/24 10:00 11/29/24 09:58 40 MG Potassium Chloride/Dextrose/ Sod Cl 1,000 ml @ 120 mls/hr Q8H20M IV 11/26/24 18:45 11/29/24 06:49 120 MLS/HR Laboratory Results Laboratory Tests 11/29/24 05:58 Chemistry Test 11/28/24 14:21 11/29/24 05:58 Calcium Level 9.3 mg/dL (8.7-10.4) 9.3 mg/dL (8.7-10.4) Albumin 3.7 g/dL (3.2-4.8) Total Protein 6.7 g/dL (5.7-8.2) LFT Test 11/29/24 05:58 Alanine Aminotransferase (ALT) 12 U/L (7-40) Alkaline Phosphatase 60 U/L (46-116) Aspartate Amino Transferase (AST) 13 U/L (13-40) Total Bilirubin 0.3 mg/dL (0.2-1.0) Assessment/Plan Assessment/Plan 49-year-old female past medical history hypertension asthma diagnosed with gallstones October 10, 2024 denies any surgical history chief complaint started having epigastric abdominal pain that started this morning. Patient states the pain has been sharp and has not let up. She does complain of nausea and vomiting with the pain. No chest pain no shortness with the breath no tearing sensation in her abdomen or chest. Patient feels his her gallstone when evaluating patient's labs and imaging normal saline was given morphine Zofran CBC was unremarkable CT scan of the abdomen pelvis shows acute cholecystitis. With these findings we will admit and ask for General surgery evaluation pain management NPO IV fluids and antibiotics acute intractable abdominal pain likely from acute gallbladder infection acute cholecystitis acute dehydration from vomiting ordered ivf chronic problems htn cont home medication asthma monitor for resp distress 11/27/2024: pending HIDA scan. Surgery on board. discussed with pt 11/28/2024: potassium low. replace to keep above 3.5. Pt to be re-evaluated by surgery for cholecystectomy 11/29/2024: potassium still low, giving another 120mEeq today Plan discussed with: Patient My Orders Orders - ELLI MUNIZ DO Procedure Category Date Status Time Potassium Chl PHA 11/29/24 Logged 20meq/100ml 13:00 Potassium Er Tablet PHA 11/29/24 Logged (Klor-Con Tablet) 13:00 Date of Service: Nov 29, 2024 Billing Provider: ELLI MUNIZ DO Common Visit Codes: [id number] INP/OBS CARE(HIGH) ELLI MUNIZ DO Nov 29, 2024 13:00
[2024-11-29] MEDS: POTASSIUM CHL 20 Meq TABLET PO ONE (15:26)
[2024-11-29] MEDS: POTASSIUM CHL 20MEQ/100ML 100 ML IV SCH (15:28)
--- NOTE | 2024-11-29 20:00 | DVHPN2 ---
Progress Note - Dictate Date Seen: Nov 29, 2024 Medical Necessity Reason Pt with a Central, PICC or Fol: No Subjective Patient was seen and evaluated in follow up. No acute events overnight. Patient denies any new complaints. Potassium is still low at 2.9. vital signs Vital Sign Date Time Temp Pulse Resp B/P (MAP) Pulse Ox O2 Delivery O2 Flow Rate FiO2 11/29/24 17:15 97.5 77 17 122/72 (89) 99 97.5 11/29/24 08:00 Room Air* 0 21 Total Intake and Output 11/28/24 11/28/24 11/29/24 15:00 23:00 07:00 Intake Total 980 ml 634 ml 200 ml Balance 980 ml 634 ml 200 ml medications Current Medications Medications Dose Ordered Sig/Bob Route Start Time Stop Time Status Last Admin Dose Admin Ondansetron HCl 4 mg Q4HP PRN IV 11/26/24 15:45 Docusate Sodium 100 mg BIDPRN PRN PO 11/26/24 15:45 Morphine Sulfate 2 mg Q4HPRN PRN IV 11/26/24 15:45 Nitroglycerin 0.4 mg Q5MINP PRN SL 11/26/24 15:45 Ceftriaxone Sodium 50 ml @ 100 mls/hr DAILY@09 IV 11/27/24 09:00 11/29/24 08:14 100 MLS/HR Metronidazole 100 ml @ 100 mls/hr Q8HR IV 11/26/24 22:00 11/29/24 13:29 100 MLS/HR Amlodipine Besylate 5 mg DAILY PO 11/27/24 10:00 11/29/24 09:59 5 MG Pantoprazole Sodium 40 mg DAILY IV 11/27/24 10:00 11/29/24 09:58 40 MG Potassium Chloride/Dextrose/ Sod Cl 1,000 ml @ 120 mls/hr Q8H20M IV 11/26/24 18:45 11/29/24 13:25 120 MLS/HR Potassium Chloride 100 ml @ 50 mls/hr Q2H IV 11/29/24 13:00 11/29/24 20:59 11/29/24 17:16 50 MLS/HR objective Vitals and nursing notes reviewed. General Appearance: Alert, Oriented X3, Cooperative, Other (And pain) HEENT: Atraumatic, PERRLA, EOMI, Mucous membr. moist/pink Respiratory: Clear to auscultation, Normal air movement Cardiovascular: Regular rate, Normal S1, Normal S2, No murmurs Abdominal: Normal bowel sounds, Soft, RUQ abdominal tenderness Extremities: No clubbing, No cyanosis, No edema, Normal pulses, No tenderness/swelling Skin: No rashes, No breakdown, No significant lesion Neuro: Normal speech, Strength at 5/5 X4 ext, Normal tone, Sensation intact, Cranial nerves 3-12 NL Psych/Mental Status: Mental status NL, Mood NL laboratory and microbiology Laboratory Tests 11/29/24 05:58 Test 11/29/24 05:58 Range/Units Serum Glucose 84 74-106 mg/dL Problem List Acute intractable abdominal pain likely from acute gallbladder infection Acute cholecystitis Acute dehydration from vomiting Hypokalemia Assessment/Plan Agree with current supportive medical care. Patient to be re-evaluated by surgery for cholecystectomy. Daily lab monitoring. Klor-Con 120 mEq today. IVFs with Potassium chloride/dextrose/Sod Cl at 120 mL/hr. IV antibiotics with Ceftriaxone and Flagyl. Protonix 40 mg IV daily. Pain management prn. Antiemetics with Zofran. Diet: NPO. Additional plan as per the hospital course. Plan discussed with: Patient, Other (RN) KAYLEEN HERNANDEZ DO Nov 29, 2024 20:00
[2024-11-30] VITALS (9 sets, daily range): BP systolic 120–135; BP diastolic 52–83; PULSE 74–99; RESP 17–20; TEMP 97.4–98.2; O2SAT 96–100
[2024-11-30] MEDS: POTASSIUM CHL 20MEQ/100ML 100 ML IV ONE (00:10)
[2024-11-30 05:52] LABS: Urine Bacteria None Seen /hpf (None Seen); Urine WBC None Seen /hpf (0 - 5)
[2024-11-30 06:18] LABS: Urine Blood Negative /uL (Negative); Urine Clarity Clear (Clear); Urine Mucus FEW (None Seen); Urine Protein, UAD Negative (Negative); Urine Specific Gravity 1.017 (1.001-1.035); Urine Squamous Epithelial Cell FEW /hpf (<5); Urine Urobilinogen Normal (Negative)
[2024-11-30 06:51] LABS: Urine Color Yellow (Yellow)
[2024-11-30 14:11] LABS: Alanine Aminotransferase 11 U/L (7-40); Albumin 3.7 g/dL (3.2-4.8); Alkaline Phosphatase 63 U/L (46-116); Anion Gap 6 (5-15); Aspartate Aminotransferase 13 U/L (13-40); Calcium 9.4 mg/dL (8.7-10.4); Carbon Dioxide 22 mmol/L (20-31); Glucose 75 mg/dL (74-106); Magnesium 1.8 mg/dL (1.6-2.6); Potassium 3.9 mmol/L (3.5-5.1); Sodium 139 mmol/L (136-145)
[2024-11-30 14:12] LABS: Bilirubin, Total 0.3 mg/dL (0.2-1.0); Phosphorus 2.9 mg/dL (2.4-5.1); Total Protein 6.9 g/dL (5.7-8.2)
[2024-11-30 14:13] LABS: BUN/Creatinine Ratio 7.9 (10.0-20.0); Blood Urea Nitrogen < 5 mg/dL (9-23); Chloride 111 mmol/L (98-107)
--- NOTE | 2024-11-30 20:07 | DVHPN2 ---
Progress Note - Dictate Date Seen: Nov 30, 2024 Medical Necessity Reason Pt with a Central, PICC or Fol: No Subjective Patient was seen and evaluated in follow up. No acute events overnight. Patient denies any new complaints. Potassium has improved to 3.9. Patient is currently on clear liquid diet only, possible surgery tomorrow. vital signs Vital Sign Date Time Temp Pulse Resp B/P (MAP) Pulse Ox O2 Delivery O2 Flow Rate FiO2 11/30/24 17:00 97.5 88 17 135/81 (99) 98 97.5 11/30/24 08:00 Room Air* 0 21 Total Intake and Output 11/29/24 11/29/24 11/30/24 15:00 23:00 07:00 Intake Total 150 ml 1020 ml 200 ml Output Total 1000 ml Balance 150 ml 1020 ml -800 ml medications Current Medications Medications Dose Ordered Sig/Bob Route Start Time Stop Time Status Last Admin Dose Admin Ondansetron HCl 4 mg Q4HP PRN IV 11/26/24 15:45 Docusate Sodium 100 mg BIDPRN PRN PO 11/26/24 15:45 Morphine Sulfate 2 mg Q4HPRN PRN IV 11/26/24 15:45 Nitroglycerin 0.4 mg Q5MINP PRN SL 11/26/24 15:45 Ceftriaxone Sodium 50 ml @ 100 mls/hr DAILY@09 IV 11/27/24 09:00 11/30/24 08:57 100 MLS/HR Metronidazole 100 ml @ 100 mls/hr Q8HR IV 11/26/24 22:00 11/30/24 14:19 100 MLS/HR Amlodipine Besylate 5 mg DAILY PO 11/27/24 10:00 11/30/24 08:56 5 MG Pantoprazole Sodium 40 mg DAILY IV 11/27/24 10:00 11/30/24 08:56 40 MG Potassium Chloride/Dextrose/ Sod Cl 1,000 ml @ 120 mls/hr Q8H20M IV 11/26/24 18:45 11/30/24 14:19 120 MLS/HR objective Vitals and nursing notes reviewed. General Appearance: Alert, Oriented X3, Cooperative, Other (And pain) HEENT: Atraumatic, PERRLA, EOMI, Mucous membr. moist/pink Respiratory: Clear to auscultation, Normal air movement Cardiovascular: Regular rate, Normal S1, Normal S2, No murmurs Abdominal: Normal bowel sounds, Soft, RUQ abdominal tenderness Extremities: No clubbing, No cyanosis, No edema, Normal pulses, No tenderness/swelling Skin: No rashes, No breakdown, No significant lesion Neuro: Normal speech, Strength at 5/5 X4 ext, Normal tone, Sensation intact, Cranial nerves 3-12 NL Psych/Mental Status: Mental status NL, Mood NL laboratory and microbiology Laboratory Tests 11/30/24 13:31 11/29/24 05:58 Test 11/30/24 13:31 Range/Units Serum Glucose 75 74-106 mg/dL Problem List Acute intractable abdominal pain likely from acute gallbladder infection Acute cholecystitis Acute dehydration from vomiting Hypokalemia Assessment/Plan Agree with current supportive medical care. Pending cholecystectomy per surgery. Daily lab monitoring. IVFs with Potassium chloride/dextrose/Sod Cl at 120 mL/hr. IV antibiotics with Ceftriaxone and Flagyl. Protonix 40 mg IV daily. Pain management prn. Antiemetics with Zofran. Clear liquid diet. Additional plan as per the hospital course. Plan discussed with: Patient, Other (RN) KAYLEEN HERNANDEZ DO Nov 30, 2024 20:07
[2024-12-01] VITALS (8 sets, daily range): BP systolic 121–157; BP diastolic 62–81; PULSE 76–94; RESP 18–20; TEMP 98.2–99; O2SAT 96–100
--- NOTE | 2024-12-01 14:14 | DVHPN2 ---
Reviewed: Care Plan, H&P, Labs, Medications, Previous Orders Changes from previous H/P or p: No Changes General: Per HPI Eyes: No Pain, No Vision change, No Conjunctivae inflammation, No Eyelid inflammation, No Other, No Redness ENT: No Ear pain, No Ear discharge, No Nose pain, No Nose discharge, No Nose congestion, No Mouth pain, No Mouth swelling, No Throat pain, No Throat swelling, No Other Cardiovascular: No Chest Pain, No Palpitations, No Orthopnea, No Paroxysmal Noc. Dyspnea, No Edema, No Lt Headedness, No Other Respiratory: No Cough, No Dry, No Shortness of breath, No SOB with excertion, No Wheezing, No Hemoptysis, No Pleuritic Pain, No Sputum, No Other Gastrointestinal: Nausea, Vomiting, Abdominal Pain; No Diarrhea, No Constipation, No Melena, No Hematochezia, No Other Genitourinary: No Dysuria, No Frequency, No Incontinence, No Hematuria, No Retention, No Other Musculoskeletal: No other, No neck pain, No shoulder pain, No arm pain, No back pain, No hand pain, No leg pain, No foot pain Skin: No Rash, No Lesions, No Jaundice, No Bruising, No Other Objective Vitals Vital Signs Date Time Temp Pulse Resp B/P (MAP) Pulse Ox O2 Delivery O2 Flow Rate FiO2 12/01/24 09:47 135/66 12/01/24 09:00 98.5 86 20 98 98.5 11/30/24 22:00 Room Air* 0 21 Intake/Output Intake and Output 12/01/24 07:00 Intake Total 970 ml Output Total 700 ml Balance 270 ml Intake Oral 200 ml IV Total 770 ml Output Urine Total 700 ml # Voids 4 # Bowel Movements 1 General Appearance: Alert, Oriented X3, Cooperative Cardiovascular: Regular rate, Normal S1, Normal S2 Abdomen: Normal bowel sounds Extremities: No cyanosis Neuro: Normal speech Medications Current Medications Medications Dose Ordered Sig/Bob Route Start Time Stop Time Status Last Admin Dose Admin Ondansetron HCl 4 mg Q4HP PRN IV 11/26/24 15:45 Docusate Sodium 100 mg BIDPRN PRN PO 11/26/24 15:45 Morphine Sulfate 2 mg Q4HPRN PRN IV 11/26/24 15:45 Nitroglycerin 0.4 mg Q5MINP PRN SL 11/26/24 15:45 Ceftriaxone Sodium 50 ml @ 100 mls/hr DAILY@09 IV 11/27/24 09:00 12/01/24 08:17 100 MLS/HR Metronidazole 100 ml @ 100 mls/hr Q8HR IV 11/26/24 22:00 12/01/24 13:16 100 MLS/HR Amlodipine Besylate 5 mg DAILY PO 11/27/24 10:00 12/01/24 09:47 5 MG Pantoprazole Sodium 40 mg DAILY IV 11/27/24 10:00 12/01/24 09:47 40 MG Potassium Chloride/Dextrose/ Sod Cl 1,000 ml @ 120 mls/hr Q8H20M IV 11/26/24 18:45 12/01/24 06:52 120 MLS/HR Laboratory Results Laboratory Tests 11/29/24 05:58 11/30/24 13:31 Urinalysis Test 11/30/24 05:20 Urine Color Yellow (Yellow) Urine Clarity Clear (Clear) Urine pH 8.0 (5.0-9.0) Urine Specific [place] 1.017 (1.001-1.035) Urine Protein Negative (Negative) Urine Ketones Negative (Negative) Urine Blood Negative /uL (Negative) Urine Nitrite Negative (Negative) Urine Bilirubin Negative (Negative) Urine Urobilinogen Normal mg/dL (Negative) Urine Leukocyte Esterase Negative /uL (Negative) Urine RBC None seen /hpf (0 - 4) Urine WBC None seen /hpf (0 - 5) Urine Squamous Epithelial Cells Few /hpf (<5) Urine Bacteria None seen /hpf (None Seen) Urine Mucus Few (None Seen) Urine Osmolality 626 mOsm/kg Urine Potassium 25 mmol/L (12-62) Urine Glucose Normal mg/dL (Normal) Assessment/Plan Assessment/Plan 49-year-old female past medical history hypertension asthma diagnosed with gallstones October 10, 2024 denies any surgical history chief complaint started having epigastric abdominal pain that started this morning. Patient states the pain has been sharp and has not let up. She does complain of nausea and vomiting with the pain. No chest pain no shortness with the breath no tearing sensation in her abdomen or chest. Patient feels his her gallstone when evaluating patient's labs and imaging normal saline was given morphine Zofran CBC was unremarkable CT scan of the abdomen pelvis shows acute cholecystitis. With these findings we will admit and ask for General surgery evaluation pain management NPO IV fluids and antibiotics acute intractable abdominal pain likely from acute gallbladder infection acute cholecystitis acute dehydration from vomiting ordered ivf chronic problems htn cont home medication asthma monitor for resp distress 11/27/2024: pending HIDA scan. Surgery on board. discussed with pt 11/28/2024: potassium low. replace to keep above 3.5. Pt to be re-evaluated by surgery for cholecystectomy 11/29/2024: potassium still low, giving another 120mEeq today 11/30/2024: per Gen surg, surgery on Radha Plan discussed with: Patient Date of Service: Nov 30, 2024 Billing Provider: ELLI MUNIZ DO Common Visit Codes: [id number] INP/OBS CARE(HIGH) ELLI MUNIZ DO Dec 01, 2024 14:14
[2024-12-01 18:47] LABS: Alanine Aminotransferase 14 U/L (7-40); Albumin 3.8 g/dL (3.2-4.8); Alkaline Phosphatase 62 U/L (46-116); Anion Gap 6 (5-15); Aspartate Aminotransferase 19 U/L (13-40); Calcium 9.6 mg/dL (8.7-10.4); Carbon Dioxide 22 mmol/L (20-31); Glucose 82 mg/dL (74-106); Potassium 3.8 mmol/L (3.5-5.1); Sodium 137 mmol/L (136-145)
[2024-12-01 18:48] LABS: Total Protein 7.2 g/dL (5.7-8.2)
[2024-12-01 18:51] LABS: BUN/Creatinine Ratio 8.1 (10.0-20.0); Bilirubin, Total 0.3 mg/dL (0.2-1.0); Blood Urea Nitrogen < 5 mg/dL (9-23); Chloride 109 mmol/L (98-107)
--- NOTE | 2024-12-01 20:20 | DVHPN2 ---
Reviewed: Care Plan, H&P, Labs, Medications, Previous Orders Changes from previous H/P or p: No Changes General: Per HPI Eyes: No Pain, No Vision change, No Conjunctivae inflammation, No Eyelid inflammation, No Other, No Redness ENT: No Ear pain, No Ear discharge, No Nose pain, No Nose discharge, No Nose congestion, No Mouth pain, No Mouth swelling, No Throat pain, No Throat swelling, No Other Cardiovascular: No Chest Pain, No Palpitations, No Orthopnea, No Paroxysmal Noc. Dyspnea, No Edema, No Lt Headedness, No Other Respiratory: No Cough, No Dry, No Shortness of breath, No SOB with excertion, No Wheezing, No Hemoptysis, No Pleuritic Pain, No Sputum, No Other Gastrointestinal: Nausea, Vomiting, Abdominal Pain; No Diarrhea, No Constipation, No Melena, No Hematochezia, No Other Genitourinary: No Dysuria, No Frequency, No Incontinence, No Hematuria, No Retention, No Other Musculoskeletal: No other, No neck pain, No shoulder pain, No arm pain, No back pain, No hand pain, No leg pain, No foot pain Skin: No Rash, No Lesions, No Jaundice, No Bruising, No Other Objective Vitals Vital Signs Date Time Temp Pulse Resp B/P (MAP) Pulse Ox O2 Delivery O2 Flow Rate FiO2 12/01/24 17:00 98.2 82 20 157/78 (104) 99 98.2 12/01/24 08:00 Room Air* 0 21 Intake/Output Intake and Output 12/01/24 07:00 Intake Total 970 ml Output Total 700 ml Balance 270 ml Intake Oral 200 ml IV Total 770 ml Output Urine Total 700 ml # Voids 4 # Bowel Movements 1 General Appearance: Alert, Oriented X3, Cooperative Cardiovascular: Regular rate, Normal S1, Normal S2 Abdomen: Normal bowel sounds Extremities: No cyanosis Neuro: Normal speech Medications Current Medications Medications Dose Ordered Sig/Bob Route Start Time Stop Time Status Last Admin Dose Admin Ondansetron HCl 4 mg Q4HP PRN IV 11/26/24 15:45 Docusate Sodium 100 mg BIDPRN PRN PO 11/26/24 15:45 Morphine Sulfate 2 mg Q4HPRN PRN IV 11/26/24 15:45 Nitroglycerin 0.4 mg Q5MINP PRN SL 11/26/24 15:45 Ceftriaxone Sodium 50 ml @ 100 mls/hr DAILY@09 IV 11/27/24 09:00 12/01/24 08:17 100 MLS/HR Metronidazole 100 ml @ 100 mls/hr Q8HR IV 11/26/24 22:00 12/01/24 13:16 100 MLS/HR Amlodipine Besylate 5 mg DAILY PO 11/27/24 10:00 12/01/24 09:47 5 MG Pantoprazole Sodium 40 mg DAILY IV 11/27/24 10:00 12/01/24 09:47 40 MG Potassium Chloride/Dextrose/ Sod Cl 1,000 ml @ 120 mls/hr Q8H20M IV 11/26/24 18:45 12/01/24 17:09 120 MLS/HR Laboratory Results Laboratory Tests 11/29/24 05:58 12/01/24 18:17 Chemistry Test 12/01/24 18:17 Albumin 3.8 g/dL (3.2-4.8) Calcium Level 9.6 mg/dL (8.7-10.4) Total Protein 7.2 g/dL (5.7-8.2) LFT Test 12/01/24 18:17 Alanine Aminotransferase (ALT) 14 U/L (7-40) Alkaline Phosphatase 62 U/L (46-116) Aspartate Amino Transferase (AST) 19 U/L (13-40) Total Bilirubin 0.3 mg/dL (0.2-1.0) Urinalysis Test 11/30/24 05:20 Urine Color Yellow (Yellow) Urine Clarity Clear (Clear) Urine pH 8.0 (5.0-9.0) Urine Specific [place] 1.017 (1.001-1.035) Urine Protein Negative (Negative) Urine Ketones Negative (Negative) Urine Blood Negative /uL (Negative) Urine Nitrite Negative (Negative) Urine Bilirubin Negative (Negative) Urine Urobilinogen Normal mg/dL (Negative) Urine Leukocyte Esterase Negative /uL (Negative) Urine RBC None seen /hpf (0 - 4) Urine WBC None seen /hpf (0 - 5) Urine Squamous Epithelial Cells Few /hpf (<5) Urine Bacteria None seen /hpf (None Seen) Urine Mucus Few (None Seen) Urine Osmolality 626 mOsm/kg Urine Potassium 25 mmol/L (12-62) Urine Glucose Normal mg/dL (Normal) Assessment/Plan Assessment/Plan 49-year-old female past medical history hypertension asthma diagnosed with gallstones October 10, 2024 denies any surgical history chief complaint started having epigastric abdominal pain that started this morning. Patient states the pain has been sharp and has not let up. She does complain of nausea and vomiting with the pain. No chest pain no shortness with the breath no tearing sensation in her abdomen or chest. Patient feels his her gallstone when evaluating patient's labs and imaging normal saline was given morphine Zofran CBC was unremarkable CT scan of the abdomen pelvis shows acute cholecystitis. With these findings we will admit and ask for General surgery evaluation pain management NPO IV fluids and antibiotics acute intractable abdominal pain likely from acute gallbladder infection acute cholecystitis acute dehydration from vomiting ordered ivf chronic problems htn cont home medication asthma monitor for resp distress 11/27/2024: pending HIDA scan. Surgery on board. discussed with pt 11/28/2024: potassium low. replace to keep above 3.5. Pt to be re-evaluated by surgery for cholecystectomy 11/29/2024: potassium still low, giving another 120mEeq today 11/30/2024: per Gen surg, surgery on Radha 12/01/2024: surgery within 48 hours. ok to shower Plan discussed with: Patient Date of Service: Dec 01, 2024 Billing Provider: ELLI MUNIZ DO Common Visit Codes: [id number] INP/OBS CARE(HIGH) ELLI MUNIZ DO Dec 01, 2024 20:19
--- NOTE | 2024-12-01 20:23 | DVHPN2 ---
Progress Note - Dictate Date Seen: Dec 01, 2024 Medical Necessity Reason Pt with a Central, PICC or Fol: No Subjective Patient was seen and evaluated in follow up. No acute events overnight. No new complaints. Patient denies any abdominal pain at this time. Planned for surgery tomorrow. K remains wnl at 3.8. vital signs Vital Sign Date Time Temp Pulse Resp B/P (MAP) Pulse Ox O2 Delivery O2 Flow Rate FiO2 12/01/24 17:00 98.2 82 20 157/78 (104) 99 98.2 12/01/24 08:00 Room Air* 0 21 Total Intake and Output 11/30/24 11/30/24 12/01/24 15:00 23:00 07:00 Intake Total 150 ml 620 ml 200 ml Output Total 700 ml Balance 150 ml -80 ml 200 ml medications Current Medications Medications Dose Ordered Sig/Bob Route Start Time Stop Time Status Last Admin Dose Admin Ondansetron HCl 4 mg Q4HP PRN IV 11/26/24 15:45 Docusate Sodium 100 mg BIDPRN PRN PO 11/26/24 15:45 Morphine Sulfate 2 mg Q4HPRN PRN IV 11/26/24 15:45 Nitroglycerin 0.4 mg Q5MINP PRN SL 11/26/24 15:45 Ceftriaxone Sodium 50 ml @ 100 mls/hr DAILY@09 IV 11/27/24 09:00 12/01/24 08:17 100 MLS/HR Metronidazole 100 ml @ 100 mls/hr Q8HR IV 11/26/24 22:00 12/01/24 13:16 100 MLS/HR Amlodipine Besylate 5 mg DAILY PO 11/27/24 10:00 12/01/24 09:47 5 MG Pantoprazole Sodium 40 mg DAILY IV 11/27/24 10:00 12/01/24 09:47 40 MG Potassium Chloride/Dextrose/ Sod Cl 1,000 ml @ 120 mls/hr Q8H20M IV 11/26/24 18:45 12/01/24 17:09 120 MLS/HR objective Vitals and nursing notes reviewed. General Appearance: Alert, Oriented X3, Cooperative, Other (And pain) HEENT: Atraumatic, PERRLA, EOMI, Mucous membr. moist/pink Respiratory: Clear to auscultation, Normal air movement Cardiovascular: Regular rate, Normal S1, Normal S2, No murmurs Abdominal: Normal bowel sounds, Soft Extremities: No clubbing, No cyanosis, No edema, Normal pulses, No tenderness/swelling Skin: No rashes, No breakdown, No significant lesion Neuro: Normal speech, Strength at 5/5 X4 ext, Normal tone, Sensation intact, Cranial nerves 3-12 NL Psych/Mental Status: Mental status NL, Mood NL laboratory and microbiology Laboratory Tests 12/01/24 18:17 11/29/24 05:58 Test 12/01/24 18:17 Range/Units Serum Glucose 82 74-106 mg/dL Problem List Acute intractable abdominal pain likely from acute gallbladder infection Acute cholecystitis Acute dehydration from vomiting Hypokalemia Assessment/Plan Agree with all current supportive medical care. Planned for cholecystectomy 12/02 per surgery. No further input from Nephrology standpoint. Will sign off. Plan discussed with: Other (RN) KAYLEEN HERNANDEZ DO Dec 01, 2024 20:23
[2024-12-02] VITALS (9 sets, daily range): BP systolic 102–141; BP diastolic 46–91; PULSE 72–89; RESP 16–19; TEMP 97.5–98.2; O2SAT 90–99
--- NOTE | 2024-12-02 10:48 | PEER ---
Peer to Peer Review Time DATE: 12/02/24 TIME: 10:47 Review and Recommendations: Approved for inpatient By Dr. Salinas. MIMI CASTELLANOS MD Dec 02, 2024 10:48
[2024-12-02] MEDS: SUCCINYLCHOLINE CHLORIDE 20 MG/ML 10ML VIAL IV ONE (12:38)
[2024-12-02] MEDS ORDERED: PROPOFOL 10 MG/ML 20 ML IV ONE (12:39)
[2024-12-02] MEDS ORDERED: fentaNYL CITRATE 100 MCG/2 ML VL ONE (12:39)
[2024-12-02] MEDS: BUPIVACAINE 0.5% P/F INJ 10 ML VIAL ONE ×2 (12:58→14:15)
[2024-12-02] MEDS: ceFAZolin 2 GM/D5W100ml 100 ML IV ONE (13:26)
[2024-12-02] MEDS ORDERED: ROCURONIUM 10MG/ML 10ML VIAL IV ONE (14:03)
[2024-12-02] MEDS ORDERED: DexAMETHasone SOD PHOS 10MG/1ML VIAL INJ ONE (14:04)
[2024-12-02] MEDS ORDERED: ONDANSETRON HCL 4 MG/2 ML VIAL ONE (14:04)
[2024-12-02] MEDS ORDERED: ePHEDrine SULFATE 50 MG/ML AMP ONE ×2 (14:12→14:13)
[2024-12-02] MEDS: LIDOCAINE W/ EPINEPHRINE 1% 20ML VIAL ONE (14:15)
[2024-12-02] MEDS ORDERED: MEPERIDINE HCL (25 MG/ML) 1ML VIAL ONE (14:17)
[2024-12-02] MEDS ORDERED: SUGAMMADEX 200mg/2ml Vial (100MG/ML) IV ONE (14:55)
[2024-12-02] MEDS: ONDANSETRON HCL 4 MG/2 ML VIAL IV ONE (15:15)
[2024-12-02] MEDS ORDERED: MEPERIDINE HCL (25 MG/ML) 1ML VIAL IV PRN (15:15)
[2024-12-02] MEDS: ACETAMINOPHEN IV 1000 MG/100ML (10MG/ML) IV PRN (15:18)
[2024-12-02] MEDS: HYDROmorphone HCL 2 MG/ML VL/or syr IV PRN (15:19)
--- NOTE | 2024-12-02 15:38 | DVHOP ---
DATE OF SURGERY: 12/02/2024 PREOPERATIVE DIAGNOSES: Cholelithiasis, cholecystitis, morbid obesity. POSTOPERATIVE DIAGNOSES: Cholelithiasis, cholecystitis, morbid obesity. SURGEON: Sal Espinosa MD PSYCH TECH: Sean Ewing. ANESTHESIA: General endotracheal. ANESTHESIOLOGIST: Dr. Silveira. PROCEDURE: Laparoscopy, laparoscopic cholecystectomy. DESCRIPTION OF PROCEDURE: Under general endotracheal anesthesia, with the patient's skin prepped and draped, a supraumbilical incision was made and Veress needle inserted into the peritoneal cavity by the hanging drop technique to establish pneumoperitoneum to 15 mmHg pressure by insufflation with carbon dioxide. With the abdomen fully distended, the needle was removed and replaced with a 5 mm trocar port through which a 0-degree viewing laparoscope was inserted and under direct vision, 5 and 10 mm ports inserted through the right anterior axillary line at the level of the umbilicus and through the subxiphoid skin in the midline respectively. The patient's laparoscopy was hampered by the patient's morbid obesity; however, no obvious unexpected pathology was encountered. The patient's gallbladder was massively enlarged chronically as well as acutely inflamed. It was tensely distended and very difficult to manipulate. The anatomy was completely distorted secondary to the massive inflammation. For this reason, the gallbladder was resected in a retrograde fashion from the fundus towards the infundibular cystic duct junction. The cystic duct and cystic artery were eventually identified, circumferentially dissected, traced to the best of my ability to the hepaticocystic triangle so as to minimize the potential for inadvertent injury to the common bile duct. The cystic duct and cystic artery were then divided between metallic clips and the gallbladder was completely resected from the liver bed and removed from the peritoneal cavity by placement in a specimen extraction bag and removed through the subxiphoid 10 mm port site. The right upper quadrant was then profusely irrigated, irrigant was aspirated. Hemostasis was meticulously assured, found to be complete. At the termination of the procedure, there was no bleeding from either the cholecystectomy site or from the port sites. A 10 mm Dereje-Douglass drain was placed underneath the right lobe of the liver and exteriorized through the 5 mm trocar port site on the right flank, secured with a 2-0 nylon suture. Following assurance of complete hemostasis, the patient's instrumentation was withdrawn. Pneumoperitoneum was evacuated. Fascial defect closed using 0 Vicryl. Skin was approximated using Monocryl sutures, Dermabond glue and Steri-Strips. The patient remained stable throughout the procedure, left the operating room following an accurate needle and sponge count. Her daughter was thoroughly informed by phone. MD THERESA Pack/CLEO TID: [id number] RECEIPT: [id number]
[2024-12-02] MEDS: MORPHINE SULFATE INJ 2 MG/ml SYRG IV PRN (16:49)
[2024-12-03] VITALS (8 sets, daily range): BP systolic 103–127; BP diastolic 42–79; PULSE 57–100; RESP 13–20; TEMP 98–98.7; O2SAT 93–100
[2024-12-03 07:10] LABS: Basophils # (auto) 0 10 ^3/uL (0-0.2); Basophils % (auto) 0.1 % (0.0-2.0); Eosinophils # (auto) 0 10 ^3/uL (0-0.8); Hematocrit 33.3 % (36.0-46.0); Hemoglobin 10.9 g/dL (12.2-16.2); Lymphocytes # (auto) 0.8 10 ^3/uL (0.4-5.4); Lymphocytes % (auto) 12.4 % (10.0-50.0); Mean Corpuscular Hemoglobin 28.1 pg (28.0-32.0); Mean Corpuscular Hgb Conc. 32.7 g/dL (32.0-36.0); Mean Corpuscular Volume 85.9 fL (80.0-100.0); Monocytes # (auto) 0.4 10 ^3/uL (0-1.3); Monocytes % (auto) 5.8 % (0.0-12.0); Neutrophils # (auto) 5.6 10 ^3/uL (1.6-8.6); Neutrophils % (auto) 81.7 % (37.0-80.0); Nucleated Red Blood Cells % 0.1 %; Platelet Count (auto) 207 10^3/uL (140-450); Red Blood Cells 3.88 10^6/uL (4.0-5.20); Red Cell Distribution Width 15.7 % (11.8-14.3); White Blood Cell 6.8 10^3/uL (4.4-10.8)
--- NOTE | 2024-12-03 10:25 | DVHPN2 ---
Progress Note Date Seen: Dec 03, 2024 Medical Necessity Reason Pt with a Central, PICC or Fol: No Objective vital signs Vital Sign Date Time Temp Pulse Resp B/P (MAP) Pulse Ox O2 Delivery O2 Flow Rate FiO2 12/03/24 09:25 114/42 12/03/24 08:06 98.6 57 20 100 98.6 12/02/24 20:00 Room Air* 0 N/A Nasal Cannula* Total Intake and Output 12/02/24 12/02/24 12/03/24 15:00 23:00 07:00 Intake Total 100 ml 0 ml 1550 ml Output Total 20 ml 0 ml Balance 100 ml -20 ml 1550 ml medications Current Medications Medications Dose Ordered Sig/Bob Route Start Time Stop Time Status Last Admin Dose Admin Ondansetron HCl 4 mg Q4HP PRN IV 11/26/24 15:45 Docusate Sodium 100 mg BIDPRN PRN PO 11/26/24 15:45 Morphine Sulfate 2 mg Q4HPRN PRN IV 11/26/24 15:45 12/03/24 03:25 2 MG Nitroglycerin 0.4 mg Q5MINP PRN SL 11/26/24 15:45 Ceftriaxone Sodium 50 ml @ 100 mls/hr DAILY@09 IV 11/27/24 09:00 12/03/24 09:31 100 MLS/HR Metronidazole 100 ml @ 100 mls/hr Q8HR IV 11/26/24 22:00 12/03/24 05:06 100 MLS/HR Amlodipine Besylate 5 mg DAILY PO 11/27/24 10:00 12/03/24 09:25 5 MG Pantoprazole Sodium 40 mg DAILY IV 11/27/24 10:00 12/03/24 09:27 40 MG Potassium Chloride/Dextrose/ Sod Cl 1,000 ml @ 120 mls/hr Q8H20M IV 11/26/24 18:45 12/03/24 03:37 120 MLS/HR laboratory and microbiology Laboratory Tests 12/03/24 06:51 12/01/24 18:17 Test 12/01/24 18:17 Range/Units Serum Glucose 82 74-106 mg/dL Problem List/Assessment/Plan Problem List/Assessment/Plan 11/28/24 hida SCAN POSITIVE, WILL PROCEED WITH CHOLECYSTECTOMY ONCE POTASSIUM CORRECTED 12/03/24 feels much better, no nausea , abdomen appropriately tender, wounds clean and well approximated, drain with moderate non bilious drainage, bilirubin and liver enzymes normal cbc stable, will advance po intake ./ home tomorrow Plan discussed with: Patient AGUEDA HUITRON MD Dec 03, 2024 10:25
--- NOTE | 2024-12-03 14:57 | DVHPN2 ---
Reviewed: Care Plan, H&P, Labs, Medications, Previous Orders Changes from previous H/P or p: No Changes General: Per HPI Eyes: No Pain, No Vision change, No Conjunctivae inflammation, No Eyelid inflammation, No Other, No Redness ENT: No Ear pain, No Ear discharge, No Nose pain, No Nose discharge, No Nose congestion, No Mouth pain, No Mouth swelling, No Throat pain, No Throat swelling, No Other Cardiovascular: No Chest Pain, No Palpitations, No Orthopnea, No Paroxysmal Noc. Dyspnea, No Edema, No Lt Headedness, No Other Respiratory: No Cough, No Dry, No Shortness of breath, No SOB with excertion, No Wheezing, No Hemoptysis, No Pleuritic Pain, No Sputum, No Other Gastrointestinal: Nausea, Vomiting, Abdominal Pain; No Diarrhea, No Constipation, No Melena, No Hematochezia, No Other Genitourinary: No Dysuria, No Frequency, No Incontinence, No Hematuria, No Retention, No Other Musculoskeletal: No other, No neck pain, No shoulder pain, No arm pain, No back pain, No hand pain, No leg pain, No foot pain Skin: No Rash, No Lesions, No Jaundice, No Bruising, No Other Objective Vitals Vital Signs Date Time Temp Pulse Resp B/P (MAP) Pulse Ox O2 Delivery O2 Flow Rate FiO2 12/03/24 12:19 98.7 91 18 125/79 (94) 93 98.7 12/03/24 08:00 Room Air* 0 21 Intake/Output Intake and Output 12/03/24 07:00 Intake Total 1650 ml Output Total 20 ml Balance 1630 ml Intake Oral 450 ml IV Total 1200 ml Output Urine Total 0 ml Drainage Total 20 ml # Voids 2 General Appearance: Alert, Oriented X3, Cooperative Cardiovascular: Regular rate, Normal S1, Normal S2 Abdomen: Normal bowel sounds Extremities: No cyanosis Neuro: Normal speech Medications Current Medications Medications Dose Ordered Sig/Bob Route Start Time Stop Time Status Last Admin Dose Admin Ondansetron HCl 4 mg Q4HP PRN IV 11/26/24 15:45 Docusate Sodium 100 mg BIDPRN PRN PO 11/26/24 15:45 Morphine Sulfate 2 mg Q4HPRN PRN IV 11/26/24 15:45 12/03/24 03:25 2 MG Nitroglycerin 0.4 mg Q5MINP PRN SL 11/26/24 15:45 Ceftriaxone Sodium 50 ml @ 100 mls/hr DAILY@09 IV 11/27/24 09:00 12/03/24 09:31 100 MLS/HR Metronidazole 100 ml @ 100 mls/hr Q8HR IV 11/26/24 22:00 12/03/24 05:06 100 MLS/HR Amlodipine Besylate 5 mg DAILY PO 11/27/24 10:00 12/03/24 09:25 5 MG Pantoprazole Sodium 40 mg DAILY IV 11/27/24 10:00 12/03/24 09:27 40 MG Potassium Chloride/Dextrose/ Sod Cl 1,000 ml @ 120 mls/hr Q8H20M IV 11/26/24 18:45 12/03/24 03:37 120 MLS/HR Laboratory Results Laboratory Tests 12/01/24 18:17 12/03/24 06:51 LFT Test 12/03/24 06:51 Total Bilirubin 0.2 mg/dL (0.2-1.0) Urinalysis Test 11/30/24 05:20 Urine Color Yellow (Yellow) Urine Clarity Clear (Clear) Urine pH 8.0 (5.0-9.0) Urine Specific [place] 1.017 (1.001-1.035) Urine Protein Negative (Negative) Urine Ketones Negative (Negative) Urine Blood Negative /uL (Negative) Urine Nitrite Negative (Negative) Urine Bilirubin Negative (Negative) Urine Urobilinogen Normal mg/dL (Negative) Urine Leukocyte Esterase Negative /uL (Negative) Urine RBC None seen /hpf (0 - 4) Urine WBC None seen /hpf (0 - 5) Urine Squamous Epithelial Cells Few /hpf (<5) Urine Bacteria None seen /hpf (None Seen) Urine Mucus Few (None Seen) Urine Osmolality 626 mOsm/kg Urine Potassium 25 mmol/L (12-62) Urine Glucose Normal mg/dL (Normal) Microbiology Microbiology Date/Time Source Procedure Growth Status 12/02/24 14:15 Gallbladder Fluid Gram Stain Pending Resulted 12/02/24 14:15 Gallbladder Fluid Anaerobic Culture - Preliminary Resulted 12/02/24 14:15 Gallbladder Fluid Aerobic Culture - Preliminary Resulted Assessment/Plan Assessment/Plan 49-year-old female past medical history hypertension asthma diagnosed with gallstones October 10, 2024 denies any surgical history chief complaint started having epigastric abdominal pain that started this morning. Patient states the pain has been sharp and has not let up. She does complain of nausea and vomiting with the pain. No chest pain no shortness with the breath no tearing sensation in her abdomen or chest. Patient feels his her gallstone when evaluating patient's labs and imaging normal saline was given morphine Zofran CBC was unremarkable CT scan of the abdomen pelvis shows acute cholecystitis. With these findings we will admit and ask for General surgery evaluation pain management NPO IV fluids and antibiotics acute intractable abdominal pain likely from acute gallbladder infection acute cholecystitis acute dehydration from vomiting ordered ivf chronic problems htn cont home medication asthma monitor for resp distress 11/27/2024: pending HIDA scan. Surgery on board. discussed with pt 11/28/2024: potassium low. replace to keep above 3.5. Pt to be re-evaluated by surgery for cholecystectomy 11/29/2024: potassium still low, giving another 120mEeq today 11/30/2024: per Gen surg, surgery on Radha 12/01/2024: surgery within 48 hours. ok to shower 12/02/2024: undergoing surgery today 12/03/2024: still has drain with significant output. advance diet as tolerated, possible d/c in AM Plan discussed with: Patient Date of Service: Dec 03, 2024 Billing Provider: ELLI MUNIZ DO Common Visit Codes: [id number] INP/OBS CARE(HIGH) ELLI MUNIZ DO Dec 03, 2024 14:57
[2024-12-03] MEDS ORDERED: NAP500T PO (14:58)
[2024-12-03] MEDS ORDERED: MET500T PO (14:58)
[2024-12-03] MEDS ORDERED: DOCU-94 PO (14:58)
[2024-12-04 00:39] VITALS: BP 131/67; PULSE 93; RESP 15; TEMP 98; O2SAT 96
[2024-12-04 04:43] VITALS: BP 115/57; PULSE 93; RESP 14; TEMP 97.8; O2SAT 95
[2024-12-04 08:00] VITALS: PULSE 83
--- NOTE | 2024-12-04 08:26 | DVHPN2 ---
Progress Note Date Seen: Dec 04, 2024 Medical Necessity Reason Pt with a Central, PICC or Fol: No Subjective Patient reports: No new complaints, Feels better Review of Systems: HEENT:Normal, CVS:Normal, RESPIRATORY:Normal, GI:Normal, :Normal, MSK:Normal, NEURO:Normal Objective vital signs Vital Sign Date Time Temp Pulse Resp B/P (MAP) Pulse Ox O2 Delivery O2 Flow Rate FiO2 12/04/24 04:43 97.8 93 14 115/57 (76) 95 97.8 12/03/24 20:00 Room Air* 0 21 Total Intake and Output 12/03/24 12/03/24 12/04/24 15:00 23:00 07:00 Intake Total 50 ml 1000 ml 1400 ml Output Total 1230 ml Balance 50 ml -230 ml 1400 ml medications Current Medications Medications Dose Ordered Sig/Bob Route Start Time Stop Time Status Last Admin Dose Admin Ondansetron HCl 4 mg Q4HP PRN IV 11/26/24 15:45 Docusate Sodium 100 mg BIDPRN PRN PO 11/26/24 15:45 Morphine Sulfate 2 mg Q4HPRN PRN IV 11/26/24 15:45 12/03/24 03:25 2 MG Nitroglycerin 0.4 mg Q5MINP PRN SL 11/26/24 15:45 Ceftriaxone Sodium 50 ml @ 100 mls/hr DAILY@09 IV 11/27/24 09:00 12/03/24 09:31 100 MLS/HR Metronidazole 100 ml @ 100 mls/hr Q8HR IV 11/26/24 22:00 12/04/24 05:45 100 MLS/HR Amlodipine Besylate 5 mg DAILY PO 11/27/24 10:00 12/03/24 09:25 5 MG Pantoprazole Sodium 40 mg DAILY IV 11/27/24 10:00 12/03/24 09:27 40 MG Potassium Chloride/Dextrose/ Sod Cl 1,000 ml @ 120 mls/hr Q8H20M IV 11/26/24 18:45 12/04/24 05:44 120 MLS/HR Examination: GENERAL:Normal, HEENT:Normal, NECK:Normal, LUNGS:Normal, CVS:Normal, ABDOMEN:Normal, MSK:Normal, SKIN:Normal, NEURO:Normal laboratory and microbiology Laboratory Tests 12/03/24 06:51 12/01/24 18:17 Test 12/01/24 18:17 Range/Units Serum Glucose 82 74-106 mg/dL Problem List/Assessment/Plan Problem List/Assessment/Plan 12/04/24 patient feeling well, abdomen soft, non distended, appropriately tender, passing gas and BM, empty CLARISSA drain daily, ok to discharge per surgery point of view, patient to follow up in clinic in 7-10 days Plan discussed with: Patient, Other (Dr. Espinosa) Dietary Evaluation Review Comments: follow a low fat richard reducing diet Expected Outcomes/Goals: wt loss.no GI symptoms DEBBIE DELEON CAMP ASSISTANT Dec 04, 2024 08:26
[2024-12-04 08:30] VITALS: BP 148/76; PULSE 72; RESP 16; TEMP 98.3; O2SAT 91
--- NOTE | 2024-12-04 13:22 | DVHDS2 ---
Discharge Summary Date of Admission Nov 26, 2024 at 15:40 Date of Discharge: Dec 04, 2024 Labs/Diagnostic Data: Laboratory Results Test 12/03/24 06:51 12/01/24 18:17 11/30/24 13:31 11/30/24 05:20 White Blood Count 6.8 10^3/uL (4.4-10.8) Red Blood Count 3.88 10^6/uL (4.0-5.20) Hemoglobin 10.9 g/dL (12.2-16.2) Hematocrit 33.3 % (36.0-46.0) Mean Corpuscular Volume 85.9 fL (80.0-100.0) Mean Corpuscular Hemoglobin 28.1 pg (28.0-32.0) Mean Corpuscular Hemoglobin Concent 32.7 g/dL (32.0-36.0) Red Cell Distribution Width 15.7 % (11.8-14.3) Platelet Count 207 10^3/uL (140-450) Mean Platelet Volume 8.8 fL (6.9-10.8) Neutrophils (%) (Auto) 81.7 % (37.0-80.0) Lymphocytes (%) (Auto) 12.4 % (10.0-50.0) Monocytes (%) (Auto) 5.8 % (0.0-12.0) Eosinophils (%) (Auto) 0.0 % (0.0-7.0) Basophils (%) (Auto) 0.1 % (0.0-2.0) Neutrophils # (Auto) 5.6 10 ^3/uL (1.6-8.6) Lymphocytes # (Auto) 0.8 10 ^3/uL (0.4-5.4) Monocytes # (Auto) 0.4 10 ^3/uL (0-1.3) Eosinophils # (Auto) 0 10 ^3/uL (0-0.8) Basophils # (Auto) 0 10 ^3/uL (0-0.2) Nucleated Red Blood Cells 0.1 % Total Bilirubin 0.2 mg/dL (0.2-1.0) Sodium Level 137 mmol/L (136-145) Potassium Level 3.8 mmol/L (3.5-5.1) Chloride Level 109 mmol/L (98-107) Carbon Dioxide Level 22 mmol/L (20-31) Anion Gap 6 (5-15) Blood Urea Nitrogen < 5 mg/dL (9-23) Creatinine 0.62 mg/dL (0.550-1.02) Glomerular Filtration Rate Calc 110 mL/min (>90) BUN/Creatinine Ratio 8.1 (10.0-20.0) Serum Glucose 82 mg/dL (74-106) Calcium Level 9.6 mg/dL (8.7-10.4) Aspartate Amino Transferase (AST) 19 U/L (13-40) Alanine Aminotransferase (ALT) 14 U/L (7-40) Alkaline Phosphatase 62 U/L (46-116) Total Protein 7.2 g/dL (5.7-8.2) Albumin 3.8 g/dL (3.2-4.8) Beta HCG, Quantitative 0.4 mIU/mL (1.5-4.2) Phosphorus Level 2.9 mg/dL (2.4-5.1) Magnesium Level 1.8 mg/dL (1.6-2.6) Urine Color Yellow (Yellow) Urine Clarity Clear (Clear) Urine pH 8.0 (5.0-9.0) Urine Specific [place] 1.017 (1.001-1.035) Urine Protein Negative (Negative) Urine Ketones Negative (Negative) Urine Blood Negative /uL (Negative) Urine Nitrite Negative (Negative) Urine Bilirubin Negative (Negative) Urine Urobilinogen Normal mg/dL (Negative) Urine Leukocyte Esterase Negative /uL (Negative) Urine RBC None seen /hpf (0 - 4) Urine WBC None seen /hpf (0 - 5) Urine Squamous Epithelial Cells Few /hpf (<5) Urine Bacteria None seen /hpf (None Seen) Urine Mucus Few (None Seen) Urine Osmolality 626 mOsm/kg Urine Potassium 25 mmol/L (12-62) Urine Glucose Normal mg/dL (Normal) Test 11/26/24 13:50 Prothrombin Time 10.5 sec (9.3-11.8) Prothrombin Time INR 0.99 (0.9-1.15) Lipase 33 U/L (12-53) Other Laboratory Tests 12/03/24 06:51 12/01/24 18:17 Discharge Disposition: Home Discharge Instruct/Medications Diet: Cardiac 2g Na,low cholest Activity: No Restrictions, As Tolerated Discharge Statement: "Patient was advised to return to the ER or call 911 if any headaches, dizziness, shortness of breath, chest pain, abdominal pain, bleeding, fevers, or worsening of medical condition. Patient was counseled about treatment plan, medications, possible side effects, patientverbalized understanding. All questions were answered to the best of my ability. This discharge took greater then 30 minutes in planning, reviewing documentation, counseling the patient, and discussing with other team members." ASSESSMENT ASSESSMENT Assessment Date of Service: Dec 04, 2024 Billing Provider: ELLI MUNIZ DO Common Visit Codes: [id number] INP/OBS CARE(HIGH) ELLI MUNIZ DO Dec 04, 2024 13:22
[2024-12-04 14:39] VITALS: BP 140/96; PULSE 92; RESP 16; TEMP 97.8; O2SAT 100
--- NOTE | 2024-12-04 19:51 | DVHPN2 ---
Progress Note - Dictate Date Seen: Dec 02, 2024 Medical Necessity Reason Pt with a Central, PICC or Fol: No Subjective Patient was seen and evaluated in follow up. No acute events overnight. No new complaints. Patient is planned for OR today. Labs are stable. vital signs Vital Sign Date Time Temp Pulse Resp B/P (MAP) Pulse Ox O2 Delivery O2 Flow Rate FiO2 12/04/24 14:39 97.8 92 16 140/96 (111) 100 97.8 12/04/24 08:00 Room Air* 0 21 Total Intake and Output 12/03/24 12/03/24 12/04/24 15:00 23:00 07:00 Intake Total 50 ml 1000 ml 1400 ml Output Total 1230 ml Balance 50 ml -230 ml 1400 ml objective Vitals and nursing notes reviewed. General Appearance: Alert, Oriented X3, Cooperative, Other (And pain) HEENT: Atraumatic, PERRLA, EOMI, Mucous membr. moist/pink Respiratory: Clear to auscultation, Normal air movement Cardiovascular: Regular rate, Normal S1, Normal S2, No murmurs Abdominal: Normal bowel sounds, Soft Extremities: No clubbing, No cyanosis, No edema, Normal pulses, No tenderness/swelling Skin: No rashes, No breakdown, No significant lesion Neuro: Normal speech, Strength at 5/5 X4 ext, Normal tone, Sensation intact, Cranial nerves 3-12 NL Psych/Mental Status: Mental status NL, Mood NL laboratory and microbiology Laboratory Tests 12/03/24 06:51 12/01/24 18:17 Test 12/01/24 18:17 Range/Units Serum Glucose 82 74-106 mg/dL Problem List Acute intractable abdominal pain likely from acute gallbladder infection Acute cholecystitis Acute dehydration from vomiting Hypokalemia Assessment/Plan Agree with all current supportive medical care. OR for laparoscopic cholecystectomy today. Daily lab monitoring. IVFs with Potassium chloride/dextrose/Sod Cl at 120 mL/hr. IV antibiotics with Ceftriaxone and Flagyl. Protonix 40 mg IV daily. Pain management prn. Additional plan as per the hospital course. Dietary Evaluation Review Comments: follow a low fat richard reducing diet Expected Outcomes/Goals: wt loss.no GI symptoms Plan discussed with: Patient, Other (RN) KAYLEEN HERNANDEZ DO Dec 04, 2024 19:51
--- NOTE | 2024-12-04 19:51 | DVHPN2 ---
Progress Note - Dictate Date Seen: Dec 03, 2024 Medical Necessity Reason Pt with a Central, PICC or Fol: No Subjective Patient was seen and evaluated in follow up. No acute events overnight. No new complaints. S/p Lap Nikky yesterday. Drain with significant output. vital signs Vital Sign Date Time Temp Pulse Resp B/P (MAP) Pulse Ox O2 Delivery O2 Flow Rate FiO2 12/04/24 14:39 97.8 92 16 140/96 (111) 100 97.8 12/04/24 08:00 Room Air* 0 21 Total Intake and Output 12/03/24 12/03/24 12/04/24 15:00 23:00 07:00 Intake Total 50 ml 1000 ml 1400 ml Output Total 1230 ml Balance 50 ml -230 ml 1400 ml objective Vitals and nursing notes reviewed. General Appearance: Alert, Oriented X3, Cooperative HEENT: Atraumatic, PERRLA, EOMI, Mucous membr. moist/pink Respiratory: Clear to auscultation, Normal air movement Cardiovascular: Regular rate, Normal S1, Normal S2, No murmurs Abdominal: Normal bowel sounds, Soft Extremities: No clubbing, No cyanosis, No edema, Normal pulses, No tenderness/swelling Skin: No rashes, No breakdown, No significant lesion Neuro: Normal speech, Strength at 5/5 X4 ext, Normal tone, Sensation intact, Cranial nerves 3-12 NL Psych/Mental Status: Mental status NL, Mood NL laboratory and microbiology Laboratory Tests 12/03/24 06:51 12/01/24 18:17 Test 12/01/24 18:17 Range/Units Serum Glucose 82 74-106 mg/dL Problem List Acute intractable abdominal pain likely from acute gallbladder infection Acute cholecystitis Acute dehydration from vomiting Hypokalemia Assessment/Plan Agree with all current supportive medical care. S/p laparoscopic cholecystectomy 12/02. Daily lab monitoring. IVFs with Potassium chloride/dextrose/Sod Cl at 120 mL/hr. IV antibiotics with Ceftriaxone. Protonix 40 mg IV daily. Pain management prn. Diet as tolerated. Additional plan as per the hospital course. Dietary Evaluation Review Comments: follow a low fat richard reducing diet Expected Outcomes/Goals: wt loss.no GI symptoms Plan discussed with: Patient, Other (PCP) KAYLEEN HERNANDEZ DO Dec 04, 2024 19:51
--- NOTE | 2024-12-04 19:51 | DVHPN2 ---
Progress Note - Dictate Date Seen: Dec 04, 2024 Medical Necessity Reason Pt with a Central, PICC or Fol: No Subjective Patient was seen and evaluated in follow up. No acute events overnight. Patient reports feeling better. Abdominal pain is controlled. vital signs Vital Sign Date Time Temp Pulse Resp B/P (MAP) Pulse Ox O2 Delivery O2 Flow Rate FiO2 12/04/24 14:39 97.8 92 16 140/96 (111) 100 97.8 12/04/24 08:00 Room Air* 0 21 Total Intake and Output 12/03/24 12/03/24 12/04/24 15:00 23:00 07:00 Intake Total 50 ml 1000 ml 1400 ml Output Total 1230 ml Balance 50 ml -230 ml 1400 ml objective Vitals and nursing notes reviewed. General Appearance: Alert, Oriented X3, Cooperative HEENT: Atraumatic, PERRLA, EOMI, Mucous membr. moist/pink Respiratory: Clear to auscultation, Normal air movement Cardiovascular: Regular rate, Normal S1, Normal S2, No murmurs Abdominal: Normal bowel sounds, Soft Extremities: No clubbing, No cyanosis, No edema, Normal pulses, No tenderness/swelling Skin: No rashes, No breakdown, No significant lesion Neuro: Normal speech, Strength at 5/5 X4 ext, Normal tone, Sensation intact, Cranial nerves 3-12 NL Psych/Mental Status: Mental status NL, Mood NL laboratory and microbiology Laboratory Tests 12/03/24 06:51 12/01/24 18:17 Test 12/01/24 18:17 Range/Units Serum Glucose 82 74-106 mg/dL Problem List Acute intractable abdominal pain likely from acute gallbladder infection Acute cholecystitis Acute dehydration from vomiting Hypokalemia Assessment/Plan Discharge planning in progress. S/p Lap Cholecystectomy 12/02. Cleared for discharge from Nephrology standpoint. Dietary Evaluation Review Comments: follow a low fat richard reducing diet Expected Outcomes/Goals: wt loss.no GI symptoms Plan discussed with: Patient, Other (RN) KAYLEEN HERNANDEZ DO Dec 04, 2024 19:51
== END 2024-12-04 15:56 | disposition home or self-care (01) | DRG 263 ==
LOC: ER 11:44 → OVERFLOW 15:40 → TELE-E-ADS 23:18
PROVIDERS: ADMIT Internal Medicine; ATTEND Internal Medicine
PROC: 0FT44ZZ Resection of Gallbladder, Percutaneous Endoscopic Approach (ICD-10-PCS; principal; 2024-12-02 13:50)
DX: K80.00 Calculus of gallbladder with acute cholecystitis without obstruction (principal); Z68.43 Body mass index [BMI] 50.0-59.9, adult; E66.01 Morbid (severe) obesity due to excess calories; E78.5 Hyperlipidemia, unspecified; E86.0 Dehydration; E87.6 Hypokalemia; J45.909 Unspecified asthma, uncomplicated; F17.210 Nicotine dependence, cigarettes, uncomplicated; I10 Essential (primary) hypertension; Z82.49 Family history of ischemic heart disease and other diseases of the circulatory system; Z80.49 Family history of malignant neoplasm of other genital organs; Z84.1 Family history of disorders of kidney and ureter
CPT/HCPCS: 36415; 71045; 76705; 78226; 80048; 80053; 81001; 82247; 83690; 83735; 83935; 84100; 84132; 84133; 84702; 85025; 85610; 86850; 86900; 86901; 87070; 87075; 87205; 93005; 96365; 96375; G0378; J0131; J0330; J1100; J2405; J2470; J2704; J3480; J3490